=== PATIENT | male | born 1955 | race Caucasian/White ===

== ENCOUNTER 2017-09-23 10:07 | Day surgery (SDC) | payer OTHER ==
--- NOTE | 2017-09-23 08:24 | HP ---
DATE OF SURGERY: 09/23/2017 HISTORY OF PRESENT ILLNESS: The patient is a 62 year-old enlarging symptomatic right upper arm increased size nodule or mass, slight discomfort, slight redness. No drainage. PAST MEDICAL HISTORY: Chronic obstructive pulmonary disease, hypertension. PAST SURGICAL HISTORY: Inguinal hernia in the past. Fracture of the leg. Fracture of arm. Broken nose. Left knee surgery in the past. MEDICATIONS: Cranberry, aspirin, potassium, ipratropium, Albuterol. Breo, Bumex, Mobic, Aldactone, Neurontin, Flomax, Coreg, Celexa, Atarax, Lipitor. ALLERGIES: NKDA. GI UPSET WITH CODEINE. FAMILY HISTORY: Diabetes, chronic obstructive pulmonary disease. SOCIAL HISTORY: No alcohol abuse. REVIEW OF SYSTEMS: Twelve systems reviewed. No chest pain or palpitations other systems negative or noncontributory as above and per preadmission questionnaire. PHYSICAL EXAMINATION: GENERAL: No acute distress. HEENT: Sclerae nonicteric. NECK: No JVD. CHEST: Equal excursion, nonlabored breathing. CVS: Regular rate and rhythm. ABDOMEN: Soft. No peritoneal signs. EXTREMITIES: No significant edema. NEURO: Alert, oriented, moving extremities symmetrically. No gross motor deficits noted. IMPRESSION: Enlarging symptomatic right upper arm subcutaneous mass whether lipoma, cyst or other etiology is unclear at this point. No current drainage. Otherwise no cyanosis. I feel the patient would benefit from excisional biopsy. Risks and benefits explained in detail including but not limited to and consent obtained. Will proceed with outpatient excision and biopsy.
[~2017-09-23 10:07] MED LIST: CEFAZOLIN 2 GM-D5W BAG** 2 GM/50 ML ML IV ONE; Lactated Ringers 1,000 ML IV ONE; Lactated Ringers 1,000 ML IV SCH; Sensorcaine 0.25% 10 ML ONE
[2017-09-23] MEDS ORDERED: DIPRIVAN IV ONE (10:08)
[2017-09-23] MEDS ORDERED: Decadron 4 MG INJ IV ONE (10:08)
[2017-09-23] MEDS ORDERED: TORAdol 30 mg Injection IJ ONE (10:08)
[2017-09-23] MEDS ORDERED: Zofran 4 MG/2 ML VIAL IV ONE (10:08)
[2017-09-23] MEDS ORDERED: SUBLIMAZE 100 MCG/2 ML IV ONE (10:08)
[2017-09-23] MEDS ORDERED: XYLOCAINE 1% HCL 20 ML MDV ONE (10:17)
[2017-09-23] MEDS ORDERED: CEFAZOLIN 2 GM-D5W BAG** 2 GM/50 ML ML IV SCH (11:00)
[2017-09-23] MEDS ORDERED: SUBLIMAZE 100 MCG/2 ML ONE (12:40)
[2017-09-23 13:13] VITALS: O2SAT 93
[2017-09-23 13:23] VITALS: BP 139/61; PULSE 61
--- NOTE | 2017-09-23 14:16 | OP ---
SURGERY DATE/TIME: 09/23/2017 1130 PREOPERATIVE DIAGNOSIS: Enlarging symptomatic right upper arm subcutaneous mass or lipoma. POSTOPERATIVE DIAGNOSIS: Enlarging symptomatic right upper arm subcutaneous mass or lipoma. PROCEDURE: Excisional biopsy of right upper arm lipomatous density (10.5 cm). SURGEON: Dr. Jhonatan Cabezas. ANESTHESIA: General. ESTIMATED BLOOD LOSS: Minimal. INDICATIONS: As noted above. Risks and benefits explained in detail and not limited to and consent obtained. DESCRIPTION OF PROCEDURE AND FINDINGS: The patient is taken to the operating room. General anesthesia introduced. The arm was prepped and draped in usual sterile fashion. After official time out and no disagreement with planned procedure, a longitudinal incision made avoiding his tattoo at the upper edge. Dissection carried down and a small sliver of skin taken. Dissection carried down circumferentially around this lobulated lipomatous density dissecting off the underlying fascia, this took some time as it was just smooth oval but it was slowly and carefully freed from normal appearing subcutaneous fat around this area and carefully freed. Once the final attachments were free it was passed off. It measured about 7.5 cm in size and passed off for pathology. Again it appeared to be a lipoma with final path pending. Hemostasis controlled with some brief bursts of pinpoint cautery. Good hemostasis noted. There was one small, little refrigerator mover that was oozing at the base of the wound this was controlled with 3-0 Vicryl suture ligature. Good hemostasis noted. The wound was then closed in layers with the deep and superficial subcu closed with interrupted 3-0 Vicryl tacking it down to the fascia underneath. The skin closed with 4-0 Vicryl. Steri-Strips and sterile dressing applied. 0.25% Marcaine local had been injected along the skin incision at the beginning of the procedure. The patient tolerated the procedure well. There were no immediate complications. Findings discussed with the family out in the waiting area.
[2017-09-24] MEDS ORDERED: DIPRIVAN 200 MG/20 ML IV ONE (09:00)
== END 2017-09-23 13:42 | disposition home or self-care (01) ==
LOC: SDC 10:07
PROVIDERS: ATTEND Surgery
PROC: 0JBD0ZZ Excision of Right Upper Arm Subcutaneous Tissue and Fascia, Open Approach (ICD-10-PCS; principal; 2017-09-23)
DX: R22.31 Localized swelling, mass and lump, right upper limb (principal); R20.8 Other disturbances of skin sensation; J44.9 Chronic obstructive pulmonary disease, unspecified; I10 Essential (primary) hypertension; Z79.899 Other long term (current) drug therapy
CPT/HCPCS: 00400; J0690; J1100; J1885; J2405; J2704; J3010

== ENCOUNTER 2018-10-20 11:39 | Emergency (ER) | payer OTHER ==
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
--- NOTE | 2018-10-20 13:06 | XRAY ---
Indication: Face/forehead trauma following fall. Multiple contiguous axial images obtained through the head without contrast. Comparison: None Age-appropriate global atrophy and minimal periventricular degenerative micro-ischemia. No acute intracranial hemorrhage, abnormal extra-axial fluid collection, or mass effect. Fourth ventricle is midline without hydrocephalus. Bautista-white matter differentiation preserved. Bony calvarium intact. Mild fluid leveling in both sphenoid sinuses. Remaining visualized paranasal sinuses and mastoid air cells are clear. Impression: Nonacute senile brain. Incidental paranasal sinus disease. CT DI 60.26
--- NOTE | 2018-10-20 13:10 | XRAY ---
Indication: Face/forehead trauma following fall. Multiple contiguous axial images obtained through the facial bones. Sagittal and coronal reformatted images obtained. Comparison: None Patient is edentulous. Minimally depressed left nasal bone fracture with overlying mild soft tissue swelling and tiny subcutaneous emphysema. No other acute fracture, suspicious bony lesions, or radiopaque foreign body. Orbits including roof, mills, and floors intact. Fluid leveling in both sphenoid sinuses. Minimal mucosal thickening inferior right maxillary sinus. Remaining paranasal sinuses and nasal passages are clear. Minimal nasal septal deviation to the left. Visualized cervical spine intact with moderate multilevel degenerative changes greatest at the C4-C6 levels. Visualized noncontrasted soft tissues unremarkable. CT head reported separately. Impression: 1. Minimally depressed left nasal bone fracture. 2. Incidental minimal nasal septal deviation and paranasal sinus disease. CT DI 59.47
[2018-10-20 13:13] VITALS: BP 136/80; PULSE 81
[2018-10-20 13:27] VITALS: O2SAT 95
== END 2018-10-20 13:35 | disposition home or self-care (01) ==
LOC: ED 11:39
DX: S01.81XA Laceration without foreign body of other part of head, initial encounter (principal); S02.2XXA Fracture of nasal bones, initial encounter for closed fracture; W20.8XXA Other cause of strike by thrown, projected or falling object, initial encounter; Z79.899 Other long term (current) drug therapy; I10 Essential (primary) hypertension; F17.200 Nicotine dependence, unspecified, uncomplicated
CPT/HCPCS: 12013; 70450; 70486; 99283

== ENCOUNTER 2021-01-20 13:05 | Observation (INO) | payer MEDICARE ==
--- NOTE | 2021-01-20 13:07 | ERPHSYRPT ---
- History of Present Illness Time Seen by Provider: 01/20/21 13:07 Historian: patient, family Exam Limitations: clinical condition Physician History: This is a 65-year-old white male who presents with diffuse abdominal cramping that began approximately 2 days ago. The pain has become constant and has associated vomiting that began yesterday and worsened today. Patient has not had any diarrhea. He has not had a fever. Patient has no prior abdominal surgeries. Patient has a history of hypertension, COPD, and hypercholesterolemia. Timing/Duration: day(s) (2), constant, worse Activities at Onset: none Quality: aching, cramping Abdominal Pain Onset Location: generalized abdomen Pain Radiation: no radiation Severity of Pain-Max: moderate Severity of Pain-Current: moderate Modifying Factors: Improves With: vomiting Associated Symptoms: loss of appetite, nausea, vomiting Previous symptoms: no prior history Allergies/Adverse Reactions: codeine Adverse Reaction (Severe, Verified 01/20/21 13:18) spouse and pt states "he gets nasty and mean" Home Medications: Aspirin 81 gm Chew [Baby Aspirin 81 mg Chew] 81 mg PO DAILY 02/06/15 [History] Citalopram Hydrobromide [Celexa] 40 mg PO DAILY 02/06/15 [History] Cranberry Fruit [Cranberry] 4,200 mg PO DAILY 02/06/15 [History] Atorvastatin Calcium [Lipitor] 40 mg PO DAILY 09/17/17 [History] Bumetanide [Bumex] 0.5 mg PO DAILY 09/17/17 [History] Clonidine HCl 0.1 mg [Catapres 0.1 MG] 0.1 mg PO BID 09/17/17 [History] Gabapentin [Neurontin] 300 mg PO BID 09/17/17 [History] Hydroxyzine HCl 25 mg [Atarax 25 mg] 25 mg PO BID 09/17/17 [History] Tamsulosin HCl 0.4 mg [Flomax 0.4 MG] 0.4 mg PO DAILY 09/17/17 [History] Albuterol Sulfate [Proair Respiclick] 2 puff IH Q4H 01/20/21 [History] Amlodipine Besylate 10 mg PO DAILY 01/20/21 [History] Buspirone HCl 5 mg PO BID 01/20/21 [History] Cyanocobalamin (Vitamin B-12) [Vitamin B-12] 1 tab PO DAILY 01/20/21 [History] Ergocalciferol (Vitamin D2) [Vitamin D2] 1 cap PO WEEKLY 01/20/21 [History] Ezetimibe 10 mg [Zetia 10 MG] 10 mg PO DAILY 01/20/21 [History] Fluticasone/Vilanterol [Breo Ellipta 100-25 Mcg INH] 1 puff IH DAILY 01/20/21 [History] Metolazone [Zaroxolyn] 1 tab PO DAILY 01/20/21 [History] Potassium Chloride [K-Dur] 1 mg PO BID 01/20/21 [History] Tramadol HCl 50 mg PO BID PRN 01/20/21 [History] Zolpidem Tartrate 5 mg PO HS 01/20/21 [History] Hx Tetanus, Diphtheria Vaccination/Date Given: Yes Hx Influenza Vaccination/Date Given: Yes Hx Pneumococcal Vaccination/Date Given: No Travel Risk - International Travel Have you traveled outside of the country in past 3 weeks: No - Coronavirus Screening Are you exhibiting any of the following symptoms?: No Close contact with a COVID-19 positive Pt in past 14-21 Days: No - Vaccine Status Have you recieved a Covid-19 vaccination: No - Review of Systems Constitutional: No Symptoms Eyes: No Symptoms Ears, Nose, & Throat: No Symptoms Respiratory: No Symptoms Cardiac: No Symptoms Abdominal/Gastrointestinal: Abdominal Pain, Nausea, Vomiting, No Diarrhea, No Constipation Genitourinary Symptoms: No Symptoms Musculoskeletal: No Symptoms Skin: No Symptoms Neurological: No Symptoms Psychological: No Symptoms Endocrine: No Symptoms Hematologic/Lymphatic: No Symptoms Immunological/Allergic: No Symptoms All Other Systems: Reviewed and Negative - Past Medical History Pertinent Past Medical History: Yes Neurological History: No Pertinent History ENT History: No Pertinent History Cardiac History: Hypertension, Myocardial Infarction ([place]) Respiratory History: COPD Endocrine Medical History: No Pertinent History Musculoskeletal History: Arthritis GI Medical History: GERD, Hepatitis, Hernia History: No Pertinent History Psycho-Social History: Anxiety, Depression Male Reproductive Disorders: No Pertinent History Other Medical History: Previous L LL fx, L forearm fx - Past Surgical History Past Surgical History: Yes Neuro Surgical History: No Pertinent History Cardiac: No Pertinent History Respiratory: No Pertinent History Gastrointestinal: Hernia Repair Genitourinary: No Pertinent History Musculoskeletal: Orthopedic Surgery Male Surgical History: No Pertinent History Other Surgical History: broken nose. right arm fx. right leg fx. left knee meniscus repair, right inguinal hernia repair - Social History Smoking Status: Current every day smoker How long have you smoked: 43 Exposure to second hand smoke: Yes Drug Use: other Patient Lives Alone: No - Nursing Vital Signs Nursing Vital Signs: Initial Vital Signs Temperature 98.9 F 01/20/21 13:18 Pulse Rate 73 01/20/21 13:18 Respiratory Rate 20 01/20/21 13:18 Blood Pressure 146/92 01/20/21 13:18 O2 Sat by Pulse Oximetry 95 01/20/21 13:18 Pain Scale Pain Intensity 6 - Physical Exam General Appearance: moderate distress, alert, anxiety, obese Eye Exam: PERRL/EOMI Ears, Nose, Throat Exam: normal ENT inspection, moist mucous membranes Neck Exam: normal inspection, non-tender, supple, full range of motion Respiratory Exam: normal breath sounds, lungs clear, airway intact, No chest tenderness, No respiratory distress Cardiovascular Exam: regular rate/rhythm, normal heart sounds, normal peripheral pulses Gastrointestinal/Abdomen Exam: soft, normal bowel sounds, tenderness, guarding, No rebound Extremity Exam: normal inspection, normal range of motion, pelvis stable Neurologic Exam: alert, oriented x 3, cooperative, 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, normal mood/affect, nml cerebellar function, nml station & gait, sensation nml Skin Exam: normal color, warm, dry Lymphatic Exam: No adenopathy SpO2 Interpretation: normal O2 Delivery: Room Air - Course Nursing assessment & vital signs reviewed: Yes Ordered Tests: Active Orders 24 hr Category Date Time Status EKG-ER Only STAT Care 01/20/21 13:55 Active IV Insertion STAT Care 01/20/21 13:55 Active ABDOMEN AND PELVIS W/0 CONTRAS [CT] Stat Exams 01/20/21 13:56 Completed AMYLASE Stat Lab 01/20/21 13:55 Completed CBC W DIFF Stat Lab 01/20/21 13:55 Completed CMP Stat Lab 01/20/21 13:55 Completed CULTURE,URINE Stat Lab 01/20/21 14:53 Received LIPASE Stat Lab 01/20/21 13:55 Completed Lactic Acid Stat Lab 01/20/21 13:55 Completed TROPONIN Q3H Lab 01/20/21 14:00 Completed TROPONIN Q3H Lab 01/20/21 17:00 Ordered TROPONIN Q3H Lab 01/20/21 20:00 Ordered TROPONIN Q3H Lab 01/20/21 23:00 Ordered TROPONIN Q3H Lab 01/21/21 02:00 Ordered UA W/RFX UR CULTURE Stat Lab 01/20/21 14:53 Completed Medication Summary Discontinued Medications Generic Name Dose Route Start Last Admin Trade Name Freq PRN Reason Stop Dose Admin Hydromorphone HCl 1 mg 01/20/21 13:55 01/20/21 14:02 Hydromorphone 1 Mg/Ml Injection IV 01/20/21 13:56 1 mg STAT ONE Administration Hydromorphone HCl Confirm 01/20/21 14:01 Hydromorphone 1 Mg/Ml Injection Administered 01/20/21 14:02 Dose 1 mg .ROUTE .STK-MED ONE Sodium Chloride 1,000 mls @ 999 mls/hr 01/20/21 13:55 01/20/21 15:03 Sodium Chloride 0.9% 1000 Ml IV 01/20/21 14:55 Infused .Q1H1M STA Infusion Sodium Chloride Confirm 01/20/21 14:01 Sodium Chloride 0.9% 1000 Ml Administered 01/20/21 14:02 Dose 1,000 mls @ ud .ROUTE .STK-MED ONE Ondansetron HCl 4 mg 01/20/21 13:55 01/20/21 14:02 Zofran 4 Mg/2 Ml Vial IV 01/20/21 13:56 4 mg STAT ONE Administration Ondansetron HCl Confirm 01/20/21 14:01 Zofran 4 Mg/2 Ml Vial Administered 01/20/21 14:02 Dose 4 mg .ROUTE .STK-MED ONE Pantoprazole Sodium 40 mg 01/20/21 13:55 01/20/21 14:02 Protonix 40 Mg Iv IV 01/20/21 13:56 40 mg STAT ONE Administration Pantoprazole Sodium Confirm 01/20/21 14:01 Protonix 40 Mg Iv Administered 01/20/21 14:02 Dose 40 mg IV .STK-MED ONE Lab/Rad Data: Laboratory Result Diagrams 01/20/21 13:55 04/09/21 13:55 Laboratory Results 01/20/21 01/20/21 01/20/21 Range/Units 14:53 14:00 13:55 WBC (4.0-10.5) K/mm3 RBC (4.1-5.6) M/mm3 Hgb (12.5-18.0) gm/dl Hct (42-50) % MCV (78-100) fl MCH (26-32) pg MCHC (32-36) g/dl RDW (11.5-14.0) % Plt Count (150-450) K/mm3 MPV (7.5-11.0) fl Gran % (36.0-66.0) % Eos # (Auto) (0-0.5) Absolute Lymphs (auto) (1.0-4.6) Absolute Monos (auto) (0.0-1.3) Lymphocytes % (24.0-44.0) % Monocytes % (0.0-12.0) % Eosinophils % (0.00-5.0) % Basophils % (0.0-0.4) % Absolute Granulocytes (1.4-6.9) Basophils # (0-0.4) Sodium 136 L (137-145) mmol/L Potassium 3.2 L (3.5-5.1) mmol/L Chloride 98 (98-107) mmol/L Carbon Dioxide 27 (22-30) mmol/L Anion Gap 14.5 (5-15) MEQ/L BUN 23 H (9-20) mg/dL Creatinine 1.24 (0.66-1.25) mg/dL Estimated GFR > 60.0 ML/MIN Glucose 129 H (74-106) mg/dL Lactic Acid (0.4-2.0) Calcium 11.5 H (8.4-10.2) mg/dL Total Bilirubin 0.90 (0.2-1.3) mg/dL AST 32 (17-59) U/L ALT 19 (0-50) U/L Alkaline Phosphatase 63 (38-126) U/L Troponin I 0.030 (0.000-0.034) ng/mL Serum Total Protein 8.4 H (6.3-8.2) g/dL Albumin 4.6 (3.5-5.0) g/dL Amylase 67 (30-110) U/L Lipase 92 (23-300) U/L Urine Color YELLOW (YELLOW) Urine Appearance CLEAR (CLEAR) Urine pH 6.0 (5-6) Ur Specific [place] 1.017 (1.005-1.025) Urine Protein 30 (Negative) Urine Ketones NEGATIVE (NEGATIVE) Urine Blood SMALL (0-5) Moses/ul Urine Nitrite NEGATIVE (NEGATIVE) Urine Bilirubin NEGATIVE (NEGATIVE) Urine Urobilinogen 2 (0-1) mg/dL Ur Leukocyte Esterase NEGATIVE (NEGATIVE) Urine WBC (Auto) 0-2 (0-5) /HPF Urine RBC (Auto) 6-10 (0-2) /HPF U Epithel Cells (Auto) NONE (FEW) /HPF Urine Bacteria (Auto) NONE (NEGATIVE) /HPF Urine Mucus (Auto) SLIGHT (NEGATIVE) /HPF Urine Culture Reflexed YES (NO) Urine Glucose NEGATIVE (NEGATIVE) mg/dL 01/20/21 01/20/21 Range/Units 13:55 13:55 WBC 21.0 H (4.0-10.5) K/mm3 RBC 5.33 (4.1-5.6) M/mm3 Hgb 16.0 (12.5-18.0) gm/dl Hct 45.6 (42-50) % MCV 85.6 (78-100) fl MCH 30.0 (26-32) pg MCHC 35.1 (32-36) g/dl RDW 11.8 (11.5-14.0) % Plt Count 259 (150-450) K/mm3 MPV 11.5 H (7.5-11.0) fl Gran % 78.0 H (36.0-66.0) % Eos # (Auto) 0.01 (0-0.5) Absolute Lymphs (auto) 3.00 (1.0-4.6) Absolute Monos (auto) 1.60 H (0.0-1.3) Lymphocytes % 14.3 L (24.0-44.0) % Monocytes % 7.6 (0.0-12.0) % Eosinophils % 0.0 (0.00-5.0) % Basophils % 0.1 (0.0-0.4) % Absolute Granulocytes 16.34 H (1.4-6.9) Basophils # 0.02 (0-0.4) Sodium (137-145) mmol/L Potassium (3.5-5.1) mmol/L Chloride (98-107) mmol/L Carbon Dioxide (22-30) mmol/L Anion Gap (5-15) MEQ/L BUN (9-20) mg/dL Creatinine (0.66-1.25) mg/dL Estimated GFR ML/MIN Glucose (74-106) mg/dL Lactic Acid 2.9 H (0.4-2.0) Calcium (8.4-10.2) mg/dL Total Bilirubin (0.2-1.3) mg/dL AST (17-59) U/L ALT (0-50) U/L Alkaline Phosphatase (38-126) U/L Troponin I (0.000-0.034) ng/mL Serum Total Protein (6.3-8.2) g/dL Albumin (3.5-5.0) g/dL Amylase (30-110) U/L Lipase (23-300) U/L Urine Color (YELLOW) Urine Appearance (CLEAR) Urine pH (5-6) Ur Specific [place] (1.005-1.025) Urine Protein (Negative) Urine Ketones (NEGATIVE) Urine Blood (0-5) Moses/ul Urine Nitrite (NEGATIVE) Urine Bilirubin (NEGATIVE) Urine Urobilinogen (0-1) mg/dL Ur Leukocyte Esterase (NEGATIVE) Urine WBC (Auto) (0-5) /HPF Urine RBC (Auto) (0-2) /HPF U Epithel Cells (Auto) (FEW) /HPF Urine Bacteria (Auto) (NEGATIVE) /HPF Urine Mucus (Auto) (NEGATIVE) /HPF Urine Culture Reflexed (NO) Urine Glucose (NEGATIVE) mg/dL - Progress Progress: improved, pain not gone completely, re-examined Progress Note: 01/20/21 16:06 CAT scan of the abdomen and pelvis without contrast shows bilateral perinephric stranding which is nonspecific. No other acute intra-abdominal findings present. Medical decision making: I spoke with patient's primary care physician, Dr. Frost. I reviewed the patient physical findings, laboratory results and x-ray results with him. Patient has a leukocytosis and had significant abdominal pain upon admission. His abdominal pain has improved. He does have an elevated lactic acid level. Although his leukocytosis may be secondary to multiple episodes of vomiting, we will start him on Levaquin intravenously. We will provide him IV hydration as well as antiemetics and pain medicine intravenously. We will place him in observation. Discussed with : Buffy Counseled pt/family regarding: lab results, diagnosis, rad results - Departure Departure Disposition: Observation Clinical Impression: Abdominal pain, Leukocytosis, Elevated lactic acid level Condition: Stable Critical Care Time: No Referrals: JOY FROST MD [Primary Care Provider] -
[2021-01-20] MEDS ORDERED: Hydromorphone 1 mg/ml Injection IV ONE ×2 (13:55→16:05)
[2021-01-20] MEDS ORDERED: Sodium Chloride 0.9% 1000 ML 1,000 ML IV STA (13:55)
[2021-01-20] MEDS ORDERED: PROTONIX 40 MG IV IV ONE ×2 (13:55→14:01)
[2021-01-20] MEDS ORDERED: Zofran 4 MG/2 ML VIAL IV ONE (13:55)
[2021-01-20] MEDS ORDERED: Sodium Chloride 0.9% 1000 ML 1,000 ML ONE (14:01)
[2021-01-20] MEDS ORDERED: Hydromorphone 1 mg/ml Injection ONE ×2 (14:01→16:07)
[2021-01-20] MEDS ORDERED: Zofran 4 MG/2 ML VIAL ONE (14:01)
[2021-01-20 14:20] LABS: Absolute Neutrophil Ct (ANC) 16.34 (1.4-6.9); BASOPHIL % 0.1 % (0.0-0.4); Basophil (Absolute #) 0.02 (0-0.4); Eosinophil (Absolute #) 0.01 (0-0.5); Hematocrit 45.6 % (42-50); Lymphocytes % 14.3 % (24.0-44.0); Mean Cell Volume 85.6 fl (78-100); Mean Corpuscular Hgb Concent. 35.1 g/dl (32-36); Mean Platelet Volume 11.5 fl (7.5-11.0); Monocytes % 7.6 % (0.0-12.0); Platelet Count 259 K/mm3 (150-450); Red Blood Count 5.33 M/mm3 (4.1-5.6); Red Cell Distribution Width 11.8 % (11.5-14.0)
[2021-01-20 14:22] LABS: ALBUMIN 4.6 g/dL (3.5-5.0); ALKALINE PHOSPHATASE 63 U/L (38-126); AMYLASE 67 U/L (30-110); ANION GAP 14.5 MEQ/L (5-15); BLOOD UREA NITROGEN 23 mg/dL (9-20); CHLORIDE 98 mmol/L (98-107); Calcium 11.5 mg/dL (8.4-10.2); Carbon Dioxide 27 mmol/L (22-30); Creatinine 1 1.24 mg/dL (0.66-1.25); EST GLOMERULAR FILTRATION RATE > 60.0 ML/MIN; Glucose 129 mg/dL (74-106); LIPASE 92 U/L (23-300); Potassium 3.2 mmol/L (3.5-5.1); SGOT/AST 32 U/L (17-59); SGPT/ALT 19 U/L (0-50); SODIUM 136 mmol/L (137-145); Total Protein 8.4 g/dL (6.3-8.2)
--- NOTE | 2021-01-20 15:08 | XRAY ---
Indication: Abdomen cramping, pain, nausea, vomiting, and fever. Multiple contiguous axial images obtained through the abdomen and pelvis without contrast. Comparison: None Lung bases demonstrates mild bibasilar subsegmental atelectasis/scarring and a few tiny calcified granulomas. No infiltrate or effusion. Heart is not enlarged. Small right infrahilar and distal paraesophageal calcified nodes. Small hiatal hernia. Noncontrasted stomach and bowel loops appear nonobstructed. Normal appendix. Mild diffuse scattered colonic diverticulosis without bety diverticulitis. No free fluid/air. Both kidneys demonstrates nonspecific perinephric stranding. Gallbladder contracted without gallstones. A few splenic calcified granulomas. Remaining liver, gallbladder, pancreas, spleen, adrenal glands, kidneys, ureters, and bladder are unremarkable for noncontrast exam. Scattered aortoiliac calcifications including right renal artery calcifications. No AAA. Osseous structures demonstrates moderate/advanced multilevel lumbar degenerative spondylosis and L2-S1 fusion surgery with intact posterior spinal hardware and L2-L3 intervertebral spacer. Small bilateral fatty inguinal hernias. Impression: 1. Small hiatal hernia, scattered colonic diverticulosis, scattered arteriosclerotic disease, small bilateral fatty inguinal hernias, chronic bony findings, and old granulomatous disease. 2. Remaining CT abdomen/pelvis without contrast exam is negative.
[2021-01-20 15:38] LABS: Appearance CLEAR (CLEAR); Bilirubin NEGATIVE (NEGATIVE); Blood SMALL Ery/ul (0-5); Glucose NEGATIVE (NEGATIVE); Ketones NEGATIVE (NEGATIVE); Leukocyte Esterase NEGATIVE (NEGATIVE); Mucus SLIGHT /HPF (NEGATIVE); Nitrite NEGATIVE (NEGATIVE); Protein,Urine Dip 30 (Negative); Specific Gravity 1.017 (1.005-1.025); Urobilinogen 2 mg/dL (0-1); WBC 0-2 /HPF (0-5)
[2021-01-20] MEDS ORDERED: NICODERM CQ 14 MG TOP SCH (17:15)
[2021-01-20 17:51] LABS: INFLUENZA A NEGATIVE (NEGATIVE); INFLUENZA B NEGATIVE (NEGATIVE); RESPIRATORY SYNCTIAL VIRUS NEGATIVE (Negative)
[2021-01-20] MEDS ORDERED: TYLENOL 325 MG PO PRN (18:16)
[2021-01-20] MEDS ORDERED: PROTONIX 40 MG IV IV SCH (18:16)
[2021-01-20] MEDS ORDERED: ULTRAM 50 MG PO PRN (18:50)
[2021-01-20] MEDS: NORVASC 5 MG PO SCH (18:59)
[2021-01-20] MEDS: Sodium Chloride 0.9% 1000 ML 1,000 ML IV SCH (19:59)
[2021-01-20] MEDS ORDERED: PATIENT OWN MEDICATION IH PRN (20:36)
[2021-01-20] MEDS ORDERED: Ambien 5 MG Tablet PO SCH (22:00)
[2021-01-20] MEDS: BUSPAR 5 MG PO SCH (22:02)
[2021-01-20] MEDS: ATARAX 25 MG PO SCH (22:02)
[2021-01-20] MEDS: NEURONTIN 300 MG PO SCH (22:03)
[2021-01-20] MEDS: COREG 12.5 MG PO SCH (22:03)
[2021-01-20] MEDS: Catapres 0.1 MG PO SCH (22:03)
[2021-01-20] MEDS: Zofran 4 MG/2 ML VIAL IV PRN (22:11)
[2021-01-20] MEDS: Hydromorphone 1 mg/ml Injection IV PRN (22:12)
[2021-01-21 01:59] LABS: Absolute Neutrophil Ct (ANC) 8.72 (1.4-6.9); BASOPHIL % 0.2 % (0.0-0.4); Basophil (Absolute #) 0.03 (0-0.4); Eosinophil % 0.3 % (0.00-5.0); Eosinophil (Absolute #) 0.04 (0-0.5); Hematocrit 39.3 % (42-50); Hemoglobin 13.9 gm/dl (12.5-18.0); Lymphocyte (Absolute #) 3.99 (1.0-4.6); Lymphocytes % 28.2 % (24.0-44.0); Mean Cell Volume 87.5 fl (78-100); Mean Corpuscular Hgb Concent. 35.4 g/dl (32-36); Mean Platelet Volume 10.5 fl (7.5-11.0); Monocyte (Absolute #) 1.39 (0.0-1.3); Monocytes % 9.8 % (0.0-12.0); Neutrophil % 61.5 % (36.0-66.0); Platelet Count 208 K/mm3 (150-450); Red Blood Count 4.49 M/mm3 (4.1-5.6); Red Cell Distribution Width 11.7 % (11.5-14.0); White Blood Count 14.2 K/mm3 (4.0-10.5)
[2021-01-21 02:10] LABS: ALBUMIN 3.7 g/dL (3.5-5.0); ALKALINE PHOSPHATASE 47 U/L (38-126); ANION GAP 8.8 MEQ/L (5-15); BLOOD UREA NITROGEN 18 mg/dL (9-20); CHLORIDE 100 mmol/L (98-107); Carbon Dioxide 33 mmol/L (22-30); Creatinine 1 1.21 mg/dL (0.66-1.25); EST GLOMERULAR FILTRATION RATE > 60.0 ML/MIN; Glucose 106 mg/dL (74-106); SGOT/AST 23 U/L (17-59); SGPT/ALT 16 U/L (0-50); SODIUM 139 mmol/L (137-145); Total Protein 6.8 g/dL (6.3-8.2)
[2021-01-21 02:15] LABS: Potassium 2.7 mmol/L (3.5-5.1)
[2021-01-21] MEDS ORDERED: POTASSIUM CHLORIDE 20 mEq IN WATER 100ML 100 ML IV ONE (03:23)
[2021-01-21] MEDS ORDERED: POTASSIUM CHLORIDE 20 mEq IN WATER 100ML 20 MEQ/100 ML BAG IV SCH (04:00)
[2021-01-21] MEDS: Hydromorphone 1 mg/ml Injection IV PRN (05:59)
[2021-01-21] MEDS: Zofran 4 MG/2 ML VIAL IV PRN (06:10)
[2021-01-21] MEDS ORDERED: Sodium Chloride 0.9% 1000 ML 1,000 ML ONE (06:55)
[2021-01-21] MEDS: Sodium Chloride 0.9% 1000 ML 1,000 ML IV SCH (06:56)
[2021-01-21] MEDS ORDERED: MEDICATION INTERVENTION PO SCH (08:15)
[2021-01-21] MEDS ORDERED: MEDICATION INTERVENTION MC SCH (08:15)
[2021-01-21] MEDS: NORVASC 5 MG PO SCH (09:47)
[2021-01-21] MEDS: BUSPAR 5 MG PO SCH (09:48)
[2021-01-21] MEDS: Catapres 0.1 MG PO SCH (09:48)
[2021-01-21] MEDS: COREG 12.5 MG PO SCH (09:48)
[2021-01-21] MEDS: NEURONTIN 300 MG PO SCH (09:48)
[2021-01-21] MEDS: ATARAX 25 MG PO SCH (09:49)
[2021-01-21] MEDS ORDERED: ECOTRIN 81 MG PO SCH (10:00)
[2021-01-21] MEDS ORDERED: Flomax 0.4 MG PO SCH (10:00)
[2021-01-21] MEDS ORDERED: Zetia 10 MG PO SCH (10:00)
[2021-01-21] MEDS ORDERED: NON-FORMULARY ITEM (Fluticasone/Vilanterol [Breo Ellipta 100-25 Mcg Inh] 1 PUFF) IH SCH (10:00)
[2021-01-21] MEDS ORDERED: Vitamin B-12 500 MCG PO SCH (10:00)
[2021-01-21] MEDS ORDERED: CYANOCOBALAMIN PO SCH (10:00)
[2021-01-21] MEDS ORDERED: Zaroxolyn 2.5 MG PO SCH (10:00)
[2021-01-21] MEDS ORDERED: BUMEX 1 MG PO SCH (10:00)
[2021-01-21] MEDS ORDERED: CRANBERRY FRUIT 4200 MG PO SCH (10:00)
[2021-01-21] MEDS ORDERED: BUMETANIDE 0.5 MG PO SCH (10:00)
[2021-01-21] MEDS ORDERED: ceLEXa 20 MG PO SCH (10:00)
[2021-01-21] MEDS ORDERED: Levofloxacin 500MG/100ML D5W 500 MG/100 ML BAG IV SCH ×2 (10:00→22:00)
[2021-01-21] MEDS ORDERED: NON-FORMULARY ITEM (Citalopram Hydrobromide [Celexa] 40 MG) PO SCH (10:00)
[2021-01-21] MEDS ORDERED: ZOCOR 20MG PO SCH (10:00)
[2021-01-21] MEDS ORDERED: NON-FORMULARY ITEM (Atorvastatin Calcium [Lipitor] 40 MG) PO SCH (10:00)
--- NOTE | 2021-01-21 10:14 | PCM.HP ---
History of Present Illness - Chief Complaint Chief Complaint: Abdominal pain for 2 day History of Present Illness: is a 65 year old male.who presents with diffuse abdominal cramping that began approximately 2 days ago. The pain has become constant and has associated vomiting that began yesterday and worsened today. Patient has not had any diarrhea. He has not had a fever. Patient has no prior abdominal surgeries. Patient has a history of hypertension, COPD, and hypercholeste rolemia. Timing/Duration: day(s) (2), constant, worse Activities at Onset: none Quality: aching, cramping Abdominal Pain Onset Location: generalized abdomen Pain Radiation: no radiation Severity of Pain-Max: moderate Severity of Pain-Current: moderate Modifying Factors: Improves With: vomiting Associated Symptoms: loss of appetite, nausea, vomiting Previous symptoms: no prior history patient does not have a sick contacts at home. Patient also denies any fever or chills or generalized body ache. Patient also does not have close HUFF[place] Virus contact - Review of Systems Constitutional: Malaise, Weakness, No Fever, No Chills Eyes: No Symptoms Ears, Nose, & Throat: No Symptoms Respiratory: No Cough, No Short Of Breath Cardiac: No Chest Pain, No Edema, No Syncope Abdominal/Gastrointestinal: Abdominal Pain, Nausea, Vomiting, Diarrhea Genitourinary Symptoms: No Dysuria Musculoskeletal: No Back Pain, No Neck Pain Skin: No Rash Neurological: No Dizziness, No Focal Weakness, No Sensory Changes Psychological: No Symptoms Endocrine: No Symptoms Hematologic/Lymphatic: No Symptoms Immunological/Allergic: No Symptoms Medications & Allergies Home Medications: Home Medication List Carvedilol 12.5 mg [Coreg 12.5 mg] 25 mg PO BID #60 08/11/12 [Rx Confirmed 01/20/21] Aspirin 81 gm Chew [Baby Aspirin 81 mg Chew] 81 mg PO DAILY 02/06/15 [History Confirmed 01/20/21] Citalopram Hydrobromide [Celexa] 40 mg PO DAILY 02/06/15 [History Confirmed 01/20/21] Cranberry Fruit [Cranberry] 4,200 mg PO DAILY 02/06/15 [History Confirmed 07/04] Atorvastatin Calcium [Lipitor] 40 mg PO DAILY 09/17/17 [History Confirmed 01/20/21] Bumetanide [Bumex] 0.5 mg PO DAILY 09/17/17 [History Confirmed 01/20/21] Clonidine HCl 0.1 mg [Catapres 0.1 MG] 0.1 mg PO BID 09/17/17 [History Confirmed 01/20/21] Gabapentin [Neurontin] 300 mg PO BID 09/17/17 [History Confirmed 01/20/21] Hydroxyzine HCl 25 mg [Atarax 25 mg] 25 mg PO BID 09/17/17 [History Confirmed 01/20/21] Tamsulosin HCl 0.4 mg [Flomax 0.4 MG] 0.4 mg PO DAILY 09/17/17 [History Confirmed 01/20/21] Albuterol Sulfate [Proair Respiclick] 2 puff IH Q4H 01/20/21 [History Confirmed 01/20/21] Amlodipine Besylate 10 mg PO DAILY 01/20/21 [History Confirmed 01/20/21] Buspirone HCl 5 mg PO BID 01/20/21 [History Confirmed 01/20/21] Cyanocobalamin (Vitamin B-12) [Vitamin B-12] 1 tab PO DAILY 01/20/21 [History Confirmed 01/20/21] Ergocalciferol (Vitamin D2) [Vitamin D2] 1 cap PO WEEKLY 01/20/21 [History Confirmed 01/20/21] Ezetimibe 10 mg [Zetia 10 MG] 10 mg PO DAILY 01/20/21 [History Confirmed 01/20/21] Fluticasone/Vilanterol [Breo Ellipta 100-25 Mcg INH] 1 puff IH DAILY 01/20/21 [History Confirmed 01/20/21] Metolazone [Zaroxolyn] 1 tab PO DAILY 01/20/21 [History Confirmed 01/20/21] Tramadol HCl 50 mg PO BID PRN 01/20/21 [History Confirmed 01/20/21] Zolpidem Tartrate 5 mg PO HS 01/20/21 [History Confirmed 01/20/21] Allergies/Adverse Reactions: Allergies Allergy/AdvReac Type Severity Reaction Status Date / Time codeine AdvReac Severe Verified 01/20/21 13:18 potassium chloride AdvReac Intermediate Headache Verified 01/21/21 06:37 - Past Medical History Past Medical History: Yes Neurological History: No Pertinent History ENT History: No Pertinent History Cardiac History: Hypertension, Myocardial Infarction ([place]) Respiratory History: COPD Endocrine Medical History: No Pertinent History Musculoskelatal History: Arthritis GI Medical History: GERD, Hepatitis, Hernia History: No Pertinent History Pyscho-Social History: Anxiety, Depression Male Reproductive Disorders: No Pertinent History Comment: Previous R LL fx, R forearm fx - Past Surgical History Past Surgical History: Yes Neuro Surgical History: No Pertinent History Cardiac History: No Pertinent History Respiratory Surgery: No Pertinent History GI Surgical History: Hernia Repair Genitourinary Surgical Hx: No Pertinent History Musculskeletal Surgical Hx: Orthopedic Surgery Male Surgical History: No Pertinent History Other Surgical History: broken nose. right arm fx. right leg fx. left knee meniscus repair, right inguinal hernia repair. back surgery - Social History Smoking Status: Current every day smoker How long have you smoked: 43 Exposure to second hand smoke: Yes Alcohol: None Drug Use: other - Physical Exam Vital Signs: Vital Signs - 24 hr Temp Pulse Resp BP Pulse Ox 01/21/21 07:17 98.4 F 50 L 16 90/57 91 L 01/21/21 07:09 82 18 94 L 01/21/21 04:00 97.8 F 63 20 107/68 92 L 01/20/21 23:37 98.2 F 62 20 122/70 93 L 01/20/21 20:40 59 L 18 95 01/20/21 20:11 97.7 F 57 L 18 154/83 94 L 01/20/21 18:16 96 01/20/21 17:00 64 18 142/82 96 01/20/21 15:55 64 20 144/85 92 L 01/20/21 15:10 68 16 139/75 92 L 01/20/21 14:50 64 18 146/81 95 01/20/21 14:00 80 20 112/87 95 01/20/21 13:18 98.9 F 73 20 146/92 95 Oxygen-Last 24 hours Oxygen Flowrate (L/min)-RT 2 General Appearance: no apparent distress, alert Neurologic Exam: alert, oriented x 3, cooperative, normal mood/affect, nml ce rebellar function, nml station & gait, sensation nml, No motor deficits Eye Exam: PERRL/EOMI, eyes nml inspection Ears, Nose, Throat Exam: normal ENT inspection, TMs normal, pharynx normal, moist mucous membranes Neck Exam: normal inspection, non-tender, supple, full range of motion Respiratory Exam: normal breath sounds, lungs clear, No respiratory distress Cardiovascular Exam: regular rate/rhythm, normal heart sounds, normal peripheral pulses Gastrointestinal/Abdomen Exam: soft, tenderness, No mass Back Exam: normal inspection, normal range of motion, No CVA tenderness, No vertebral tenderness Extremity Exam: normal inspection, normal range of motion, pelvis stable Skin Exam: normal color, warm, dry, No rash Lymphatic Exam: No adenopathy Results - Labs Lab/Micro Results: Lab Results-Last 24 Hours 01/20/21 01/20/21 01/20/21 Range/Units 13:55 13:55 13:55 WBC 21.0 H (4.0-10.5) K/mm3 RBC 5.33 (4.1-5.6) M/mm3 Hgb 16.0 (12.5-18.0) gm/dl Hct 45.6 (42-50) % MCV 85.6 (78-100) fl MCH 30.0 (26-32) pg MCHC 35.1 (32-36) g/dl RDW 11.8 (11.5-14.0) % Plt Count 259 (150-450) K/mm3 MPV 11.5 H (7.5-11.0) fl Gran % 78.0 H (36.0-66.0) % Eos # (Auto) 0.01 (0-0.5) Absolute Lymphs (auto) 3.00 (1.0-4.6) Absolute Monos (auto) 1.60 H (0.0-1.3) Lymphocytes % 14.3 L (24.0-44.0) % Monocytes % 7.6 (0.0-12.0) % Eosinophils % 0.0 (0.00-5.0) % Basophils % 0.1 (0.0-0.4) % Absolute Granulocytes 16.34 H (1.4-6.9) Basophils # 0.02 (0-0.4) Sodium 136 L (137-145) mmol/L Potassium 3.2 L (3.5-5.1) mmol/L Chloride 98 (98-107) mmol/L Carbon Dioxide 27 (22-30) mmol/L Anion Gap 14.5 (5-15) MEQ/L BUN 23 H (9-20) mg/dL Creatinine 1.24 (0.66-1.25) mg/dL Estimated GFR > 60.0 ML/MIN Glucose 129 H (74-106) mg/dL Lactic Acid 2.9 H (0.4-2.0) Calcium 11.5 H (8.4-10.2) mg/dL Total Bilirubin 0.90 (0.2-1.3) mg/dL AST 32 (17-59) U/L ALT 19 (0-50) U/L Alkaline Phosphatase 63 (38-126) U/L Troponin I (0.000-0.034) ng/mL Serum Total Protein 8.4 H (6.3-8.2) g/dL Albumin 4.6 (3.5-5.0) g/dL Amylase 67 (30-110) U/L Lipase 92 (23-300) U/L Urine Color (YELLOW) Urine Appearance (CLEAR) Urine pH (5-6) Ur Specific [place] (1.005-1.025) Urine Protein (Negative) Urine Ketones (NEGATIVE) Urine Blood (0-5) Moses/ul Urine Nitrite (NEGATIVE) Urine Bilirubin (NEGATIVE) Urine Urobilinogen (0-1) mg/dL Ur Leukocyte Esterase (NEGATIVE) Urine WBC (Auto) (0-5) /HPF Urine RBC (Auto) (0-2) /HPF U Epithel Cells (Auto) (FEW) /HPF Urine Bacteria (Auto) (NEGATIVE) /HPF Urine Mucus (Auto) (NEGATIVE) /HPF Urine Culture Reflexed (NO) Urine Glucose (NEGATIVE) mg/dL Influenza Type A Ag (NEGATIVE) Influenza Type B Ag (NEGATIVE) RSV (PCR) (Negative) SARS-CoV-2 (PCR) (NEGATIVE) 01/20/21 01/20/21 01/20/21 Range/Units 14:00 14:53 16:07 WBC (4.0-10.5) K/mm3 RBC (4.1-5.6) M/mm3 Hgb (12.5-18.0) gm/dl Hct (42-50) % MCV (78-100) fl MCH (26-32) pg MCHC (32-36) g/dl RDW (11.5-14.0) % Plt Count (150-450) K/mm3 MPV (7.5-11.0) fl Gran % (36.0-66.0) % Eos # (Auto) (0-0.5) Absolute Lymphs (auto) (1.0-4.6) Absolute Monos (auto) (0.0-1.3) Lymphocytes % (24.0-44.0) % Monocytes % (0.0-12.0) % Eosinophils % (0.00-5.0) % Basophils % (0.0-0.4) % Absolute Granulocytes (1.4-6.9) Basophils # (0-0.4) Sodium (137-145) mmol/L Potassium (3.5-5.1) mmol/L Chloride (98-107) mmol/L Carbon Dioxide (22-30) mmol/L Anion Gap (5-15) MEQ/L BUN (9-20) mg/dL Creatinine (0.66-1.25) mg/dL Estimated GFR ML/MIN Glucose (74-106) mg/dL Lactic Acid 1.1 (0.4-2.0) Calcium (8.4-10.2) mg/dL Total Bilirubin (0.2-1.3) mg/dL AST (17-59) U/L ALT (0-50) U/L Alkaline Phosphatase (38-126) U/L Troponin I 0.030 (0.000-0.034) ng/mL Serum Total Protein (6.3-8.2) g/dL Albumin (3.5-5.0) g/dL Amylase (30-110) U/L Lipase (23-300) U/L Urine Color YELLOW (YELLOW) Urine Appearance CLEAR (CLEAR) Urine pH 6.0 (5-6) Ur Specific [place] 1.017 (1.005-1.025) Urine Protein 30 (Negative) Urine Ketones NEGATIVE (NEGATIVE) Urine Blood SMALL (0-5) Moses/ul Urine Nitrite NEGATIVE (NEGATIVE) Urine Bilirubin NEGATIVE (NEGATIVE) Urine Urobilinogen 2 (0-1) mg/dL Ur Leukocyte Esterase NEGATIVE (NEGATIVE) Urine WBC (Auto) 0-2 (0-5) /HPF Urine RBC (Auto) 6-10 (0-2) /HPF U Epithel Cells (Auto) NONE (FEW) /HPF Urine Bacteria (Auto) NONE (NEGATIVE) /HPF Urine Mucus (Auto) SLIGHT (NEGATIVE) /HPF Urine Culture Reflexed YES (NO) Urine Glucose NEGATIVE (NEGATIVE) mg/dL Influenza Type A Ag (NEGATIVE) Influenza Type B Ag (NEGATIVE) RSV (PCR) (Negative) SARS-CoV-2 (PCR) (NEGATIVE) 01/20/21 01/20/21 01/20/21 Range/Units 17:11 17:12 20:00 WBC (4.0-10.5) K/mm3 RBC (4.1-5.6) M/mm3 Hgb (12.5-18.0) gm/dl Hct (42-50) % MCV (78-100) fl MCH (26-32) pg MCHC (32-36) g/dl RDW (11.5-14.0) % Plt Count (150-450) K/mm3 MPV (7.5-11.0) fl Gran % (36.0-66.0) % Eos # (Auto) (0-0.5) Absolute Lymphs (auto) (1.0-4.6) Absolute Monos (auto) (0.0-1.3) Lymphocytes % (24.0-44.0) % Monocytes % (0.0-12.0) % Eosinophils % (0.00-5.0) % Basophils % (0.0-0.4) % Absolute Granulocytes (1.4-6.9) Basophils # (0-0.4) Sodium (137-145) mmol/L Potassium (3.5-5.1) mmol/L Chloride (98-107) mmol/L Carbon Dioxide (22-30) mmol/L Anion Gap (5-15) MEQ/L BUN (9-20) mg/dL Creatinine (0.66-1.25) mg/dL Estimated GFR ML/MIN Glucose (74-106) mg/dL Lactic Acid (0.4-2.0) Calcium (8.4-10.2) mg/dL Total Bilirubin (0.2-1.3) mg/dL AST (17-59) U/L ALT (0-50) U/L Alkaline Phosphatase (38-126) U/L Troponin I 0.030 0.030 (0.000-0.034) ng/mL Serum Total Protein (6.3-8.2) g/dL Albumin (3.5-5.0) g/dL Amylase (30-110) U/L Lipase (23-300) U/L Urine Color (YELLOW) Urine Appearance (CLEAR) Urine pH (5-6) Ur Specific [place] (1.005-1.025) Urine Protein (Negative) Urine Ketones (NEGATIVE) Urine Blood (0-5) Moses/ul Urine Nitrite (NEGATIVE) Urine Bilirubin (NEGATIVE) Urine Urobilinogen (0-1) mg/dL Ur Leukocyte Esterase (NEGATIVE) Urine WBC (Auto) (0-5) /HPF Urine RBC (Auto) (0-2) /HPF U Epithel Cells (Auto) (FEW) /HPF Urine Bacteria (Auto) (NEGATIVE) /HPF Urine Mucus (Auto) (NEGATIVE) /HPF Urine Culture Reflexed (NO) Urine Glucose (NEGATIVE) mg/dL Influenza Type A Ag NEGATIVE (NEGATIVE) Influenza Type B Ag NEGATIVE (NEGATIVE) RSV (PCR) NEGATIVE (Negative) SARS-CoV-2 (PCR) NEGATIVE (NEGATIVE) 01/20/21 01/21/21 01/21/21 Range/Units 23:10 01:50 01:50 WBC 14.2 H (4.0-10.5) K/mm3 RBC 4.49 (4.1-5.6) M/mm3 Hgb 13.9 (12.5-18.0) gm/dl Hct 39.3 L (42-50) % MCV 87.5 (78-100) fl MCH 31.0 (26-32) pg MCHC 35.4 (32-36) g/dl RDW 11.7 (11.5-14.0) % Plt Count 208 (150-450) K/mm3 MPV 10.5 (7.5-11.0) fl Gran % 61.5 (36.0-66.0) % Eos # (Auto) 0.04 (0-0.5) Absolute Lymphs (auto) 3.99 (1.0-4.6) Absolute Monos (auto) 1.39 H (0.0-1.3) Lymphocytes % 28.2 (24.0-44.0) % Monocytes % 9.8 (0.0-12.0) % Eosinophils % 0.3 (0.00-5.0) % Basophils % 0.2 (0.0-0.4) % Absolute Granulocytes 8.72 H (1.4-6.9) Basophils # 0.03 (0-0.4) Sodium 139 (137-145) mmol/L Potassium 2.7 L* (3.5-5.1) mmol/L Chloride 100 (98-107) mmol/L Carbon Dioxide 33 H (22-30) mmol/L Anion Gap 8.8 (5-15) MEQ/L BUN 18 (9-20) mg/dL Creatinine 1.21 (0.66-1.25) mg/dL Estimated GFR > 60.0 ML/MIN Glucose 106 (74-106) mg/dL Lactic Acid (0.4-2.0) Calcium 10.0 (8.4-10.2) mg/dL Total Bilirubin 0.80 (0.2-1.3) mg/dL AST 23 (17-59) U/L ALT 16 (0-50) U/L Alkaline Phosphatase 47 (38-126) U/L Troponin I 0.028 (0.000-0.034) ng/mL Serum Total Protein 6.8 (6.3-8.2) g/dL Albumin 3.7 (3.5-5.0) g/dL Amylase (30-110) U/L Lipase (23-300) U/L Urine Color (YELLOW) Urine Appearance (CLEAR) Urine pH (5-6) Ur Specific [place] (1.005-1.025) Urine Protein (Negative) Urine Ketones (NEGATIVE) Urine Blood (0-5) Moses/ul Urine Nitrite (NEGATIVE) Urine Bilirubin (NEGATIVE) Urine Urobilinogen (0-1) mg/dL Ur Leukocyte Esterase (NEGATIVE) Urine WBC (Auto) (0-5) /HPF Urine RBC (Auto) (0-2) /HPF U Epithel Cells (Auto) (FEW) /HPF Urine Bacteria (Auto) (NEGATIVE) /HPF Urine Mucus (Auto) (NEGATIVE) /HPF Urine Culture Reflexed (NO) Urine Glucose (NEGATIVE) mg/dL Influenza Type A Ag (NEGATIVE) Influenza Type B Ag (NEGATIVE) RSV (PCR) (Negative) SARS-CoV-2 (PCR) (NEGATIVE) 01/21/21 Range/Units 01:50 WBC (4.0-10.5) K/mm3 RBC (4.1-5.6) M/mm3 Hgb (12.5-18.0) gm/dl Hct (42-50) % MCV (78-100) fl MCH (26-32) pg MCHC (32-36) g/dl RDW (11.5-14.0) % Plt Count (150-450) K/mm3 MPV (7.5-11.0) fl Gran % (36.0-66.0) % Eos # (Auto) (0-0.5) Absolute Lymphs (auto) (1.0-4.6) Absolute Monos (auto) (0.0-1.3) Lymphocytes % (24.0-44.0) % Monocytes % (0.0-12.0) % Eosinophils % (0.00-5.0) % Basophils % (0.0-0.4) % Absolute Granulocytes (1.4-6.9) Basophils # (0-0.4) Sodium (137-145) mmol/L Potassium (3.5-5.1) mmol/L Chloride (98-107) mmol/L Carbon Dioxide (22-30) mmol/L Anion Gap (5-15) MEQ/L BUN (9-20) mg/dL Creatinine (0.66-1.25) mg/dL Estimated GFR ML/MIN Glucose (74-106) mg/dL Lactic Acid (0.4-2.0) Calcium (8.4-10.2) mg/dL Total Bilirubin (0.2-1.3) mg/dL AST (17-59) U/L ALT (0-50) U/L Alkaline Phosphatase (38-126) U/L Troponin I 0.026 (0.000-0.034) ng/mL Serum Total Protein (6.3-8.2) g/dL Albumin (3.5-5.0) g/dL Amylase (30-110) U/L Lipase (23-300) U/L Urine Color (YELLOW) Urine Appearance (CLEAR) Urine pH (5-6) Ur Specific [place] (1.005-1.025) Urine Protein (Negative) Urine Ketones (NEGATIVE) Urine Blood (0-5) Moses/ul Urine Nitrite (NEGATIVE) Urine Bilirubin (NEGATIVE) Urine Urobilinogen (0-1) mg/dL Ur Leukocyte Esterase (NEGATIVE) Urine WBC (Auto) (0-5) /HPF Urine RBC (Auto) (0-2) /HPF U Epithel Cells (Auto) (FEW) /HPF Urine Bacteria (Auto) (NEGATIVE) /HPF Urine Mucus (Auto) (NEGATIVE) /HPF Urine Culture Reflexed (NO) Urine Glucose (NEGATIVE) mg/dL Influenza Type A Ag (NEGATIVE) Influenza Type B Ag (NEGATIVE) RSV (PCR) (Negative) SARS-CoV-2 (PCR) (NEGATIVE) - Radiology Impressions Radiology Exams & Impressions: Radiology Procedures Category Date Time Status ABDOMEN AND PELVIS W/0 CONTRAS [CT] Stat Exams 01/20/21 13:[address]/ABDOMEN AND PELVIS W/0 CONTRAS Indication: Abdomen cramping, pain, nausea, vomiting, and fever. Multiple contiguous axial images obtained through the abdomen and pelvis without contrast. Comparison: None Lung bases demonstrates mild bibasilar subsegmental atelectasis/scarring and a few tiny calcified granulomas. No infiltrate or effusion. Heart is not enlarged. Small right infrahilar and distal paraesophageal calcified nodes. Small hiatal hernia. Noncontrasted stomach and bowel loops appear nonobstructed. Normal appendix. Mild diffuse scattered colonic diverticulosis without bety diverticulitis. No free fluid/air. Both kidneys demonstrates nonspecific perinephric stranding. Gallbladder contracted without gallstones. A few splenic calcified granulomas. Remaining liver, gallbladder, pancreas, spleen, adrenal glands, kidneys, ureters, and bladder are unremarkable for noncontrast exam. Scattered aortoiliac calcifications including right renal artery calcifications. No AAA. Osseous structures demonstrates moderate/advanced multilevel lumbar degenerative spondylosis and L2-S1 fusion surgery with intact posterior spinal hardware and L2-L3 intervertebral spacer. Small bilateral fatty inguinal hernias. Impression: 1. Small hiatal hernia, scattered colonic diverticulosis, scattered arteriosclerotic disease, small bilateral fatty inguinal hernias, chronic bony findings, and old granulomatous disease. 2. Remaining CT abdomen/pelvis without contrast exam is negative. - Other Procedures and Tests Respiratory Therapy 01/20/21 20:35 Oxygen Nasal Cannula 2 lpm 01/20/21 20:38 Respiratory MDI UD 01/20/21 20:39 Respiratory Therapy Assessment DAILY 01/20/21 22:37 BiPap/CPAP ROUTINE Assessment/Plan (1) Hypokalemia Current Visit: Yes Status: Acute Assessment & Plan: Chief Complaint Diagnosis Abdominal pain for 1 day Allergies Allergy/AdvReac Type Severity Reaction Status Date / Time codeine AdvReac Severe Verified 01/20/21 13:18 potassium chloride AdvReac Intermediate Headache Verified 01/21/21 06:37 Vital Signs (Last 24 hours) Temp Pulse Resp BP Pulse Ox 01/21/21 07:17 98.4 F 50 L 16 90/57 91 L 01/21/21 07:09 82 18 94 L 01/21/21 04:00 97.8 F 63 20 107/68 92 L 01/20/21 23:37 98.2 F 62 20 122/70 93 L 01/20/21 20:40 59 L 18 95 01/20/21 20:11 97.7 F 57 L 18 154/83 94 L 01/20/21 18:16 96 01/20/21 17:00 64 18 142/82 96 01/20/21 15:55 64 20 144/85 92 L 01/20/21 15:10 68 16 139/75 92 L 01/20/21 14:50 64 18 146/81 95 01/20/21 14:00 80 20 112/87 95 01/20/21 13:18 98.9 F 73 20 146/92 95 Home Medications Medication Instructions Recorded Confirmed Last Taken Type Albuterol Sulfate [Proair 2 puff IH Q4H 01/20/21 01/20/21 1 Day Ago History Respiclick] ~01/19/21 Amlodipine Besylate 10 mg PO DAILY 01/20/21 01/20/21 1 Day Ago History ~01/19/21 Buspirone HCl 5 mg PO BID 01/20/21 01/20/21 1 Day Ago History ~01/19/21 Cyanocobalamin (Vitamin B-12) 1 tab PO DAILY 01/20/21 01/20/21 1 Day Ago History [Vitamin B-12] ~01/19/21 Ergocalciferol (Vitamin D2) 1 cap PO WEEKLY 01/20/21 01/20/21 1 Day Ago History [Vitamin D2] ~01/19/21 Ezetimibe 10 mg [Zetia 10 MG] 10 mg PO DAILY 01/20/21 01/20/21 1 Day Ago History ~01/19/21 Fluticasone/Vilanterol [Breo 1 puff IH DAILY 01/20/21 01/20/21 1 Day Ago History Ellipta 100-25 Mcg INH] ~01/19/21 Metolazone [Zaroxolyn] 1 tab PO DAILY 01/20/21 01/20/21 1 Day Ago History ~01/19/21 Tramadol HCl 50 mg PO BID PRN 01/20/21 01/20/21 1 Day Ago History ~01/19/21 Zolpidem Tartrate 5 mg PO HS 01/20/21 01/20/21 1 Day Ago History ~01/19/21 Current Medications Generic Name Dose Route Start Last Admin Trade Name Freq PRN Reason Stop Dose Admin Acetaminophen 650 mg 01/20/21 18:16 01/21/21 05:51 Tylenol 325 Mg PO 02/19/21 18:15 650 mg Q4H PRN PRN Administration PAIN, FEVER, HEADACHE Amlodipine Besylate 10 mg 01/20/21 18:55 01/21/21 09:47 Norvasc 5 Mg PO 02/19/21 18:54 10 mg DAILY WALTER Administration Aspirin 81 mg 01/21/21 10:00 01/21/21 09:47 Ecotrin 81 Mg PO 02/20/21 09:59 81 mg DAILY WALTER Administration Bumetanide 0.5 mg 01/21/21 10:00 01/21/21 09:49 Bumex 1 Mg PO 02/20/21 09:59 0.5 mg DAILY WALTER Administration Buspirone HCl 5 mg 01/20/21 22:00 01/21/21 09:48 Buspar 5 Mg PO 02/19/21 21:59 5 mg BID WALTER Administration Carvedilol 25 mg 01/20/21 22:00 01/21/21 09:48 Coreg 12.5 Mg PO 02/19/21 21:59 25 mg BID WALTER Administration Citalopram Hydrobromide 40 mg 01/21/21 10:00 01/21/21 09:48 Celexa 20 Mg PO 02/20/21 09:59 40 mg DAILY WALTER Administration Clonidine 0.1 mg 01/20/21 22:00 01/21/21 09:48 Catapres 0.1 Mg PO 02/19/21 21:59 0.1 mg BID WALTER Administration Cyanocobalamin 1,000 mcg 01/21/21 10:00 01/21/21 09:49 Vitamin B-12 500 Mcg PO 02/20/21 09:59 1,000 mcg DAILY WALTER Administration Ezetimibe 10 mg 01/21/21 10:00 01/21/21 09:47 Zetia 10 Mg PO 02/20/21 09:59 10 mg DAILY WALTER Administration Ergocalciferol 50,000 unit 01/25/21 10:00 Vitamin D2 PO 02/24/21 09:59 WEEKLY WALTER Gabapentin 300 mg 01/20/21 22:00 01/21/21 09:48 Neurontin 300 Mg PO 02/19/21 21:59 300 mg BID WALTER Administration Hydromorphone HCl 1 mg 01/20/21 18:16 01/21/21 05:59 Hydromorphone 1 Mg/Ml Injection IV 01/25/21 18:15 1 mg Q4H PRN PRN Administration PAIN Hydroxyzine HCl 25 mg 01/20/21 22:00 01/21/21 09:49 Atarax 25 Mg PO 02/19/21 21:59 25 mg BID WALTER Administration Sodium Chloride 1,000 mls @ 100 mls/hr 01/20/21 18:16 01/21/21 06:56 Sodium Chloride 0.9% 1000 Ml IV 02/19/21 18:15 100 mls/hr .Q10H WALTER Administration Levofloxacin/Dextrose 500 mg in 100 mls @ 100 mls/hr 01/21/21 22:00 Levofloxacin 500mg/100ml D5w IV 02/20/21 09:59 QPM WALTER Metolazone 2.5 mg 01/21/21 10:00 01/21/21 09:48 Zaroxolyn 2.5 Mg PO 02/20/21 09:59 2.5 mg DAILY WALTER Administration Miscellaneous Information 1 each 01/21/21 08:15 Medication Intervention MC 02/20/21 08:14 .RT TO CHECK ON WALTER Miscellaneous Information 1 each 01/21/21 08:15 Medication Intervention PO 02/20/21 08:14 .RN TO CHECK ON WALTER Ondansetron HCl 4 mg 01/20/21 18:16 01/21/21 06:10 Zofran 4 Mg/2 Ml Vial IV 02/19/21 18:15 4 mg Q6H PRN PRN Administration NAUSEA/VOMITING Pantoprazole Sodium 40 mg 01/20/21 18:16 01/20/21 19:59 Protonix 40 Mg Iv IV 02/19/21 18:15 40 mg Q24H [facility] Administration Ventolin Hfa Inhaler 0 each 01/20/21 20:36 IH 02/19/21 20:35 Q4HPRN PRN SHORTNESS OF BREATH Simvastatin 40 mg 01/21/21 10:00 01/21/21 09:47 Zocor 20mg PO 02/20/21 09:59 40 mg DAILY W[facility]TER Administration Tamsulosin HCl 0.4 mg 01/21/21 10:00 01/21/21 09:49 Flomax 0.4 Mg PO 02/20/21 09:59 0.4 mg DAILY [facility]TER Administration Tramadol HCl 50 mg 01/20/21 18:50 Ultram 50 Mg PO 02/19/21 18:49 BID PRN PRN PAIN Zolpidem Tartrate 5 mg 01/20/21 22:00 01/20/21 22:02 Ambien 5 Mg Tablet PO 02/19/21 21:59 5 mg HS WALTER Administration Discontinued Medications Generic Name Dose Route Start Last Admin Trade Name Freq PRN Reason Stop Dose Admin Hydromorphone HCl 1 mg 01/20/21 13:55 01/20/21 14:02 Hydromorphone 1 Mg/Ml Injection IV 01/20/21 13:56 1 mg STAT ONE Administration Hydromorphone HCl Confirm 01/20/21 14:01 Hydromorphone 1 Mg/Ml Injection Administered 01/20/21 14:02 Dose 1 mg .ROUTE .STK-MED ONE Hydromorphone HCl 1 mg 01/20/21 16:05 01/20/21 16:09 Hydromorphone 1 Mg/Ml Injection IV 01/20/21 16:06 1 mg STAT ONE Administration Hydromorphone HCl Confirm 01/20/21 16:07 Hydromorphone 1 Mg/Ml Injection Administered 01/20/21 16:08 Dose 1 mg .ROUTE .STK-MED ONE Sodium Chloride 1,000 mls @ 999 mls/hr 01/20/21 13:55 01/20/21 15:03 Sodium Chloride 0.9% 1000 Ml IV 01/20/21 14:55 Infused .Q1H1M STA Infusion Sodium Chloride Confirm 01/20/21 14:01 Sodium Chloride 0.9% 1000 Ml Administered 01/20/21 14:02 Dose 1,000 mls @ ud .ROUTE .STK-MED ONE Levofloxacin/Dextrose 500 mg in 100 mls @ 100 mls/hr 01/21/21 10:00 01/20/21 23:55 Levofloxacin 500mg/100ml D5w IV 02/20/21 09:59 100 mls/hr Q24H10 [facility] Administration Potassium Chloride 20 meq in 100 mls @ 50 mls/hr 01/21/21 04:00 01/21/21 03:33 Potassium Chloride 20 Meq In Water 100ml IV 01/21/21 07:59 50 mls/hr Q2H [facility] Administration Sodium Chloride Confirm 01/21/21 06:55 Sodium Chloride 0.9% 1000 Ml Administered 01/21/21 06:56 Dose 1,000 mls @ ud .ROUTE .STK-MED ONE Potassium Chloride Confirm 01/21/21 03:23 Potassium Chloride 20 Meq In Water 100ml Administered 01/21/21 03:24 Dose 100 mls @ ud IV .STK-MED ONE Nicotine 14 mg 01/20/21 17:15 01/20/21 17:26 Nicoderm Cq 14 Mg TOP 02/19/21 17:14 14 mg Q24H [facility] Administration Ondansetron HCl 4 mg 01/20/21 13:55 01/20/21 14:02 Zofran 4 Mg/2 Ml Vial IV 01/20/21 13:56 4 mg STAT ONE Administration Ondansetron HCl Confirm 01/20/21 14:01 Zofran 4 Mg/2 Ml Vial Administered 01/20/21 14:02 Dose 4 mg .ROUTE .STK-MED ONE Pantoprazole Sodium 40 mg 01/20/21 13:55 01/20/21 14:02 Protonix 40 Mg Iv IV 01/20/21 13:56 40 mg STAT ONE Administration Pantoprazole Sodium Confirm 01/20/21 14:01 Protonix 40 Mg Iv Administered 01/20/21 14:02 Dose 40 mg IV .STK-MED ONE Intake & Output (Last 24 hours) 01/18/21 01/19/21 01/20/21 01/21/21 11:59 11:59 11:59 11:59 Intake Total 1138 Output Total 500 Balance 638 Weight 86.8 kg Microbiology Results (Last 24 hours) 01/20/21 14:53 Urine, Void Urine Culture - Pending Laboratory Results (Last 24 hours) 01/21/21 01/21/21 01/21/21 01:50 01:50 01:50 WBC 14.2 H RBC 4.49 Hgb 13.9 Hct 39.3 L MCV 87.5 MCH 31.0 MCHC 35.4 RDW 11.7 Plt Count 208 MPV 10.5 Gran % 61.5 Eos # (Auto) 0.04 Absolute Lymphs (auto) 3.99 Absolute Monos (auto) 1.39 H Lymphocytes % 28.2 Monocytes % 9.8 Eosinophils % 0.3 Basophils % 0.2 Absolute Granulocytes 8.72 H Basophils # 0.03 Sodium 139 Potassium 2.7 L* Chloride 100 Carbon Dioxide 33 H Anion Gap 8.8 BUN 18 Creatinine 1.21 Estimated GFR > 60.0 Glucose 106 Lactic Acid Calcium 10.0 Total Bilirubin 0.80 AST 23 ALT 16 Alkaline Phosphatase 47 Troponin I 0.026 Serum Total Protein 6.8 Albumin 3.7 Amylase Lipase Urine Color Urine Appearance Urine pH Ur Specific [place] Urine Protein Urine Ketones Urine Blood Urine Nitrite Urine Bilirubin Urine Urobilinogen Ur Leukocyte Esterase Urine WBC (Auto) Urine RBC (Auto) U Epithel Cells (Auto) Urine Bacteria (Auto) Urine Mucus (Auto) Urine Culture Reflexed Urine Glucose Influenza Type A Ag Influenza Type B Ag RSV (PCR) SARS-CoV-2 (PCR) 01/20/21 01/20/21 01/20/21 23:10 20:00 17:12 WBC RBC Hgb Hct MCV MCH MCHC RDW Plt Count MPV Gran % Eos # (Auto) Absolute Lymphs (auto) Absolute Monos (auto) Lymphocytes % Monocytes % Eosinophils % Basophils % Absolute Granulocytes Basophils # Sodium Potassium Chloride Carbon Dioxide Anion Gap BUN Creatinine Estimated GFR Glucose Lactic Acid Calcium Total Bilirubin AST ALT Alkaline Phosphatase Troponin I 0.028 0.030 0.030 Serum Total Protein Albumin Amylase Lipase Urine Color Urine Appearance Urine pH Ur Specific [place] Urine Protein Urine Ketones Urine Blood Urine Nitrite Urine Bilirubin Urine Urobilinogen Ur Leukocyte Esterase Urine WBC (Auto) Urine RBC (Auto) U Epithel Cells (Auto) Urine Bacteria (Auto) Urine Mucus (Auto) Urine Culture Reflexed Urine Glucose Influenza Type A Ag Influenza Type B Ag RSV (PCR) SARS-CoV-2 (PCR) 01/20/21 01/20/21 01/20/21 17:11 16:07 14:53 WBC RBC Hgb Hct MCV MCH MCHC RDW Plt Count MPV Gran % Eos # (Auto) Absolute Lymphs (auto) Absolute Monos (auto) Lymphocytes % Monocytes % Eosinophils % Basophils % Absolute Granulocytes Basophils # Sodium Potassium Chloride Carbon Dioxide Anion Gap BUN Creatinine Estimated GFR Glucose Lactic Acid 1.1 Calcium Total Bilirubin AST ALT Alkaline Phosphatase Troponin I Serum Total Protein Albumin Amylase Lipase Urine Color YELLOW Urine Appearance CLEAR Urine pH 6.0 Ur Specific [place] 1.017 Urine Protein 30 Urine Ketones NEGATIVE Urine Blood SMALL Urine Nitrite NEGATIVE Urine Bilirubin NEGATIVE Urine Urobilinogen 2 Ur Leukocyte Esterase NEGATIVE Urine WBC (Auto) 0-2 Urine RBC (Auto) 6-10 U Epithel Cells (Auto) NONE Urine Bacteria (Auto) NONE Urine Mucus (Auto) SLIGHT Urine Culture Reflexed YES Urine Glucose NEGATIVE Influenza Type A Ag NEGATIVE Influenza Type B Ag NEGATIVE RSV (PCR) NEGATIVE SARS-CoV-2 (PCR) NEGATIVE 01/20/21 01/20/21 01/20/21 14:00 13:55 13:55 WBC RBC Hgb Hct MCV MCH MCHC RDW Plt Count MPV Gran % Eos # (Auto) Absolute Lymphs (auto) Absolute Monos (auto) Lymphocytes % Monocytes % Eosinophils % Basophils % Absolute Granulocytes Basophils # Sodium 136 L Potassium 3.2 L Chloride 98 Carbon Dioxide 27 Anion Gap 14.5 BUN 23 H Creatinine 1.24 Estimated GFR > 60.0 Glucose 129 H Lactic Acid 2.9 H Calcium 11.5 H Total Bilirubin 0.90 AST 32 ALT 19 Alkaline Phosphatase 63 Troponin I 0.030 Serum Total Protein 8.4 H Albumin 4.6 Amylase 67 Lipase 92 Urine Color Urine Appearance Urine pH Ur Specific [place] Urine Protein Urine Ketones Urine Blood Urine Nitrite Urine Bilirubin Urine Urobilinogen Ur Leukocyte Esterase Urine WBC (Auto) Urine RBC (Auto) U Epithel Cells (Auto) Urine Bacteria (Auto) Urine Mucus (Auto) Urine Culture Reflexed Urine Glucose Influenza Type A Ag Influenza Type B Ag RSV (PCR) SARS-CoV-2 (PCR) 01/20/21 13:55 WBC 21.0 H RBC 5.33 Hgb 16.0 Hct 45.6 MCV 85.6 MCH 30.0 MCHC 35.1 RDW 11.8 Plt Count 259 MPV 11.5 H Gran % 78.0 H Eos # (Auto) 0.01 Absolute Lymphs (auto) 3.00 Absolute Monos (auto) 1.60 H Lymphocytes % 14.3 L Monocytes % 7.6 Eosinophils % 0.0 Basophils % 0.1 Absolute Granulocytes 16.34 H Basophils # 0.02 Sodium Potassium Chloride Carbon Dioxide Anion Gap BUN Creatinine Estimated GFR Glucose Lactic Acid Calcium Total Bilirubin AST ALT Alkaline Phosphatase Troponin I Serum Total Protein Albumin Amylase Lipase Urine Color Urine Appearance Urine pH Ur Specific [place] Urine Protein Urine Ketones Urine Blood Urine Nitrite Urine Bilirubin Urine Urobilinogen Ur Leukocyte Esterase Urine WBC (Auto) Urine RBC (Auto) U Epithel Cells (Auto) Urine Bacteria (Auto) Urine Mucus (Auto) Urine Culture Reflexed Urine Glucose Influenza Type A Ag Influenza Type B Ag RSV (PCR) SARS-CoV-2 (PCR) Orders (Last 24 hours) Category Date Time Status Up With Assistance TOLERATED Activity 01/20/21 18:16 Active Code Status Order ROUTINE Care 01/20/21 18:16 Active EKG-ER Only STAT Care 01/20/21 13:55 Completed IV Insertion STAT Care 01/20/21 13:55 Completed Order K Level 2 hours post-inf 2 HRS POST K-INFUSED Care 01/21/21 03:11 Active Oxygen-ED Only Nasal Cannula 2 lpm Care 01/20/21 16:[address] in Observation ROUTINE Care 01/20/21 18:16 Active Telemetry q4h Care 01/21/21 03:11 Active Weight,Daily 0600 Care 01/20/21 18:16 Active Jig Box Operator/Discharge Plan ROUTINE Cons 01/20/21 20:58 Active Clear Liquid Diet 01/20/21 Dinner Completed Clear Liquid Diet 01/20/21 Dinner Completed Soft Diet Diet 01/21/21 Lunch Active ABDOMEN AND PELVIS W/0 CONTRAS [CT] Stat Exams 01/20/21 13:56 Completed AMYLASE Stat Lab 01/20/21 13:55 Completed CBC W DIFF Stat Lab 01/20/21 13:55 Completed CBC W DIFF Stat Lab 01/21/21 01:50 Completed CMP Stat Lab 01/20/21 13:55 Completed CMP Stat Lab 01/21/21 01:50 Completed CULTURE,URINE Stat Lab 01/20/21 14:53 Received LIPASE Stat Lab 01/20/21 13:55 Completed Lactic Acid Stat Lab 01/20/21 13:55 Completed Lactic Acid Stat Lab 01/20/21 16:07 Completed TROPONIN Q3H Lab 01/20/21 14:00 Completed TROPONIN Q3H Lab 01/20/21 17:12 Completed TROPONIN Q3H Lab 01/20/21 20:00 Completed TROPONIN Q3H Lab 01/20/21 23:10 Completed TROPONIN Q3H Lab 01/21/21 01:50 Completed UA W/RFX UR CULTURE Stat Lab 01/20/21 14:53 Completed Acetaminophen 325 mg [Tylenol 325 mg] Med 01/20/21 18:16 Active 650 mg PO Q4H PRN PRN Amlodipine Besylate 5 mg [Norvasc 5 mg] Med 01/20/21 18:55 Active 10 mg PO DAILY Aspirin EC 81 mg [Ecotrin 81 mg] Med 01/21/21 10:00 Active 81 mg PO DAILY Bumetanide 1 mg [Bumex 1 mg] Med 01/21/21 10:00 Active 0.5 mg PO DAILY Buspirone HCl 5 mg [Buspar 5 mg] Med 01/20/21 22:00 Active 5 mg PO BID Carvedilol 12.5 mg [Coreg 12.5 mg] Med 01/20/21 22:00 Active 25 mg PO BID Citalopram Hydrobromide 20 mg* [ceLEXa 20 MG] Med 01/21/21 10:00 Active 40 mg PO DAILY Clonidine HCl 0.1 mg [Catapres 0.1 MG] Med 01/20/21 22:00 Active 0.1 mg PO BID Cyanocobalamin 500 Mcg [Vitamin B-12 500 MCG] Med 01/21/21 10:00 Active 1,000 mcg PO DAILY Ergocalciferol (Vitamin D2) [Vitamin D2] Med 01/25/21 10:00 Active 50,000 unit PO WEEKLY Ezetimibe 10 mg [Zetia 10 MG] Med 01/21/21 10:00 Active 10 mg PO DAILY Gabapentin 300 mg [Neurontin 300 mg] Med 01/20/21 22:00 Active 300 mg PO BID Hydromorphone 1 mg/1Ml Inj [Hydromorphone 1 mg/ml Med 01/20/21 14:01 Discontinued Injection] 1 mg .ROUTE .STK-MED ONE Hydromorphone 1 mg/1Ml Inj [Hydromorphone 1 mg/ml Med 01/20/21 16:07 Discontinued Injection] 1 mg .ROUTE .STK-MED ONE Hydromorphone 1 mg/1Ml Inj [Hydromorphone 1 mg/ml Med 01/20/21 18:16 Active Injection] 1 mg IV Q4H PRN PRN Hydromorphone 1 mg/1Ml Inj [Hydromorphone 1 mg/ml Med 01/20/21 13:55 Discontinued Injection] 1 mg IV STAT ONE Hydromorphone 1 mg/1Ml Inj [Hydromorphone 1 mg/ml Med 01/20/21 16:05 Discontinued Injection] 1 mg IV STAT ONE Hydroxyzine HCl 25 mg [Atarax 25 mg] Med 01/20/21 22:00 Active 25 mg PO BID Levofloxacin [Levofloxacin 500MG/100ML D5W] Med 01/21/21 10:00 Discontinued 500 mg in 100 ml IV Q24H10 Levofloxacin [Levofloxacin 500MG/100ML D5W] Med 01/21/21 22:00 Active 500 mg in 100 ml IV QPM Medication Intervention Med 01/21/21 08:15 Active 1 each MC .RT TO CHECK ON Medication Intervention Med 01/21/21 08:15 Active 1 each PO .RN TO CHECK ON Metolazone 2.5 mg [Zaroxolyn 2.5 MG] Med 01/21/21 10:00 Active 2.5 mg PO DAILY NaCl 0.9% 1000 ml [Sodium Chloride 0.9% 1000 ML] 1,000 Med 01/20/21 14:01 Discontinued ml .ROUTE UD NaCl 0.9% 1000 ml [Sodium Chloride 0.9% 1000 ML] 1,000 Med 01/21/21 06:55 Discontinued ml .ROUTE UD NaCl 0.9% 1000 ml [Sodium Chloride 0.9% 1000 ML] 1,000 Med 01/20/21 18:16 Active ml IV 100 mls/hr NaCl 0.9% 1000 ml [Sodium Chloride 0.9% 1000 ML] 1,000 Med 01/20/21 13:55 Discontinued ml IV 999 mls/hr Nicotine 14 mg [Nicoderm Cq 14 mg] Med 01/20/21 17:15 Discontinued 14 mg TOP Q24H Ondansetron HCl 4 mg/2 ml [Zofran 4 MG/2 ML VIAL] Med 01/20/21 14:01 Discontinued 0 mg .ROUTE .STK-MED ONE Ondansetron HCl 4 mg/2 ml [Zofran 4 MG/2 ML VIAL] Med 01/20/21 18:16 Active 4 mg IV Q6H PRN PRN Ondansetron HCl 4 mg/2 ml [Zofran 4 MG/2 ML VIAL] Med 01/20/21 13:55 Dis continued 4 mg IV STAT ONE Pantoprazole 40 mg [Protonix 40 mg IV] Med 01/20/21 14:01 Discontinued 40 mg IV .STK-MED ONE Pantoprazole 40 mg [Protonix 40 mg IV] Med 01/20/21 18:16 Active 40 mg IV Q24H Pantoprazole 40 mg [Protonix 40 mg IV] Med 01/20/21 13:55 Discontinued 40 mg IV STAT ONE Patient Own Med [Patient Own Medication] Med 01/20/21 20:36 Active See Dose Instructions IH Q4HPRN PRN Potassium Chloride 20Meq/100Ml [POTASSIUM CHLORIDE 20 Med 01/21/21 04:00 Discontinued mEq IN WATER 100ML] 20 meq in 100 ml IV Q2H Potassium Chloride 20Meq/100Ml [POTASSIUM CHLORIDE 20 Med 01/21/21 03:23 Discontinued mEq IN WATER 100ML] 100 ml IV UD Simvastatin 20Mg [Zocor 20Mg] Med 01/21/21 10:00 Active 40 mg PO DAILY Tamsulosin HCl 0.4 mg [Flomax 0.4 MG] Med 01/21/21 10:00 Active 0.4 mg PO DAILY Tramadol HCl 50 mg [Ultram 50 mg] Med 01/20/21 18:50 Active 50 mg PO BID PRN PRN Zolpidem Tartrate 5 mg [Ambien 5 MG Tablet] Med 01/20/21 22:00 Active 5 mg PO HS BiPap/CPAP ROUTINE RT 01/20/21 22:37 Active Oxygen Nasal Cannula 2 lpm RT 01/20/21 20:35 Active Pulse Oximetry .spot check RT 01/20/21 20:35 Active Respiratory MDI UD RT 01/20/21 20:38 Active Respiratory Therapy Assessment DAILY RT 01/20/21 20:39 Active Smoking Cessation Education ONCE RT 01/20/21 20:58 Completed Patient Care Notes (Last 24 hours) 01/21/21 06:27 Nursing Note by Navneet Marin After about 50 ml of potassium infused, pt c/o headache. Offered pt tylenol or tramadol, he said he would take whatever. Gave Tylenol. Pt then c/o that it would take an hour to kick in. At this time, Pt holding ice pack to his head and rocking back and forth. Pt called his to come in because of pain. Gave pt dilaudid for the headache and explained that it would work faster than the tylenol. Pt wanted IV taken out. Explained that his potassium was low and he needed to try to leave it in. Pt's called back and said that he had had this reaction to potassium in the past and they had forgotten to tell us. She stated that his doctor told him not to take potassium anymore. Stopped potassium infusion and unhooked IV tubing from patient. Notified Dr Felix. No new orders at this time. Initialized on 01/21/21 06:27 - END OF NOTE 01/20/21 22:00 (created 01/21/21 01:27) Nursing Note by Goldsworthy,Navneet Asked pt what dose he takes of his potassium since it was not clear on the med list. Pt called his , who said that he no longer takes potassium. Initialized on 01/21/21 01:27 - END OF NOTE Code(s): E87.6 - HYPOKALEMIA (2) Abdominal pain Current Visit: Yes Status: Acute Qualifiers: Abdominal location: generalized Qualified Code(s): R10.84 - Generalized abdominal pain Code(s): R10.9 - UNSPECIFIED ABDOMINAL PAIN (3) Elevated lactic acid level Current Visit: Yes Status: Acute Code(s): R79.89 - OTHER SPECIFIED ABNORMAL FINDINGS OF BLOOD CHEMISTRY (4) Leukocytosis Current Visit: Yes Status: Acute Code(s): D72.829 - ELEVATED WHITE BLOOD CELL COUNT, UNSPECIFIED
[2021-01-21 12:11] VITALS: BP 115/61; PULSE 52; O2SAT 94
--- NOTE | 2021-01-21 12:35 | PCM.DS ---
Discharge Summary Date of Admission: 01/20/21 18:08 Admitting Physician: JOY FROST Primary Care Provider: JOY FROST Allergies Allergies codeine Adverse Reaction (Severe, Verified 01/20/21 13:18) spouse and pt states "he gets nasty and mean" potassium chloride Adverse Reaction (Intermediate, Verified 01/21/21 06:37) Headache Severe headache Hospital Summary - Hospital Course Hospital Course: Chief Complaint Diagnosis Abdominal pain for 2 day Allergies Allergy/AdvReac Type Severity Reaction Status Date / Time codeine AdvReac Severe Verified 01/20/21 13:18 potassium chloride AdvReac Intermediate Headache Verified 01/21/21 06:37 Vital Signs (Last 24 hours) Temp Pulse Resp BP Pulse Ox 01/21/21 12:00 98.3 F 52 L 16 115/61 94 L 01/21/21 07:17 98.4 F 50 L 16 90/57 91 L 01/21/21 07:09 82 18 94 L 01/21/21 04:00 97.8 F 63 20 107/68 92 L 01/20/21 23:37 98.2 F 62 20 122/70 93 L 01/20/21 20:40 59 L 18 95 01/20/21 20:11 97.7 F 57 L 18 154/83 94 L 01/20/21 18:16 96 01/20/21 17:00 64 18 142/82 96 01/20/21 15:55 64 20 144/85 92 L 01/20/21 15:10 68 16 139/75 92 L 01/20/21 14:50 64 18 146/81 95 01/20/21 14:00 80 20 112/87 95 01/20/21 13:18 98.9 F 73 20 146/92 95 Home Medications Medication Instructions Recorded Confirmed Last Taken Type Albuterol Sulfate [Proair 2 puff IH Q4H 01/20/21 01/20/21 1 Day Ago History Respiclick] ~01/19/21 Amlodipine Besylate 10 mg PO DAILY 01/20/21 01/20/21 1 Day Ago History ~01/19/21 Buspirone HCl 5 mg PO BID 01/20/21 01/20/21 1 Day Ago History ~01/19/21 Cyanocobalamin (Vitamin B-12) 1 tab PO DAILY 01/20/21 01/20/21 1 Day Ago History [Vitamin B-12] ~01/19/21 Ergocalciferol (Vitamin D2) 1 cap PO WEEKLY 01/20/21 01/20/21 1 Day Ago History [Vitamin D2] ~01/19/21 Ezetimibe 10 mg [Zetia 10 MG] 10 mg PO DAILY 01/20/21 01/20/21 1 Day Ago History ~01/19/21 Fluticasone/Vilanterol [Breo 1 puff IH DAILY 01/20/21 01/20/21 1 Day Ago History Ellipta 100-25 Mcg INH] ~01/19/21 Metolazone [Zaroxolyn] 1 tab PO DAILY 01/20/21 01/20/21 1 Day Ago History ~01/19/21 Tramadol HCl 50 mg PO BID PRN 01/20/21 01/20/21 1 Day Ago History ~01/19/21 Zolpidem Tartrate 5 mg PO HS 01/20/21 01/20/21 1 Day Ago History ~01/19/21 Current Medications Generic Name Dose Route Start Last Admin Trade Name Freq PRN Reason Stop Dose Admin Acetaminophen 650 mg 01/20/21 18:16 01/21/21 05:51 Tylenol 325 Mg PO 02/19/21 18:15 650 mg Q4H PRN PRN Administration PAIN, FEVER, HEADACHE Amlodipine Besylate 10 mg 01/20/21 18:55 01/21/21 09:47 Norvasc 5 Mg PO 02/19/21 18:54 10 mg DAILY WALTER Administration Aspirin 81 mg 01/21/21 10:00 01/21/21 09:47 Ecotrin 81 Mg PO 02/20/21 09:59 81 mg DAILY WALTER Administration Bumetanide 0.5 mg 01/21/21 10:00 01/21/21 09:49 Bumex 1 Mg PO 02/20/21 09:59 0.5 mg DAILY WALTER Administration Buspirone HCl 5 mg 01/20/21 22:00 01/21/21 09:48 Buspar 5 Mg PO 02/19/21 21:59 5 mg BID WALTER Administration Carvedilol 25 mg 01/20/21 22:00 01/21/21 09:48 Coreg 12.5 Mg PO 02/19/21 21:59 25 mg BID WALTER Administration Citalopram Hydrobromide 40 mg 01/21/21 10:00 01/21/21 09:48 Celexa 20 Mg PO 02/20/21 09:59 40 mg DAILY WALTER Administration Clonidine 0.1 mg 01/20/21 22:00 01/21/21 09:48 Catapres 0.1 Mg PO 02/19/21 21:59 0.1 mg BID WALTER Administration Cyanocobalamin 1,000 mcg 01/21/21 10:00 01/21/21 09:49 Vitamin B-12 500 Mcg PO 02/20/21 09:59 1,000 mcg DAILY WALTER Administration Ezetimibe 10 mg 01/21/21 10:00 01/21/21 09:47 Zetia 10 Mg PO 02/20/21 09:59 10 mg DAILY WALTER Administration Ergocalciferol 50,000 unit 01/25/21 10:00 Vitamin D2 PO 02/24/21 09:59 WEEKLY WALTER Gabapentin 300 mg 01/20/21 22:00 01/21/21 09:48 Neurontin 300 Mg PO 02/19/21 21:59 300 mg BID WALTER Administration Hydromorphone HCl 1 mg 01/20/21 18:16 01/21/21 05:59 Hydromorphone 1 Mg/Ml Injection IV 01/25/21 18:15 1 mg Q4H PRN PRN Administration PAIN Hydroxyzine HCl 25 mg 01/20/21 22:00 01/21/21 09:49 Atarax 25 Mg PO 02/19/21 21:59 25 mg BID WALTER Administration Sodium Chloride 1,000 mls @ 100 mls/hr 01/20/21 18:16 01/21/21 06:56 Sodium Chloride 0.9% 1000 Ml IV 02/19/21 18:15 100 mls/hr .Q10H WALTER Administration Levofloxacin/Dextrose 500 mg in 100 mls @ 100 mls/hr 01/21/21 22:00 Levofloxacin 500mg/100ml D5w IV 02/20/21 09:59 QPM WALTER Metolazone 2.5 mg 01/21/21 10:00 01/21/21 09:48 Zaroxolyn 2.5 Mg PO 02/20/21 09:59 2.5 mg DAILY WALTER Administration Miscellaneous Information 1 each 01/21/21 08:15 Medication Intervention MC 02/20/21 08:14 .RT TO CHECK ON WALTER Miscellaneous Information 1 each 01/21/21 08:15 Medication Intervention PO 02/20/21 08:14 .RN TO CHECK ON WALTER Ondansetron HCl 4 mg 01/20/21 18:16 01/21/21 06:10 Zofran 4 Mg/2 Ml Vial IV 02/19/21 18:15 4 mg Q6H PRN PRN Administration NAUSEA/VOMITING Pantoprazole Sodium 40 mg 01/20/21 18:16 01/20/21 19:59 Protonix 40 Mg Iv IV 02/19/21 18:15 40 mg Q24H WALTER Administration Ventolin Hfa Inhaler 0 each 01/20/21 20:36 IH 02/19/21 20:35 Q4HPRN PRN SHORTNESS OF BREATH Simvastatin 40 mg 01/21/21 10:00 01/21/21 09:47 Zocor 20mg PO 02/20/21 09:59 40 mg DAILY WALTER Administration Tamsulosin HCl 0.4 mg 01/21/21 10:00 01/21/21 09:49 Flomax 0.4 Mg PO 02/20/21 09:59 0.4 mg DAILY WALTER Administration Tramadol HCl 50 mg 01/20/21 18:50 Ultram 50 Mg PO 02/19/21 18:49 BID PRN PRN PAIN Zolpidem Tartrate 5 mg 01/20/21 22:00 01/20/21 22:02 Ambien 5 Mg Tablet PO 02/19/21 21:59 5 mg HS WALTER Administration Discontinued Medications Generic Name Dose Route Start Last Admin Trade Name Freq PRN Reason Stop Dose Admin Hydromorphone HCl 1 mg 01/20/21 13:55 01/20/21 14:02 Hydromorphone 1 Mg/Ml Injection IV 01/20/21 13:56 1 mg STAT ONE Administration Hydromorphone HCl Confirm 01/20/21 14:01 Hydromorphone 1 Mg/Ml Injection Administered 01/20/21 14:02 Dose 1 mg .ROUTE .STK-MED ONE Hydromorphone HCl 1 mg 01/20/21 16:05 01/20/21 16:09 Hydromorphone 1 Mg/Ml Injection IV 01/20/21 16:06 1 mg STAT ONE Administration Hydromorphone HCl Confirm 01/20/21 16:07 Hydromorphone 1 Mg/Ml Injection Administered 01/20/21 16:08 Dose 1 mg .ROUTE .STK-MED ONE Sodium Chloride 1,000 mls @ 999 mls/hr 01/20/21 13:55 01/20/21 15:03 Sodium Chloride 0.9% 1000 Ml IV 01/20/21 14:55 Infused .Q1H1M STA Infusion Sodium Chloride Confirm 01/20/21 14:01 Sodium Chloride 0.9% 1000 Ml Administered 01/20/21 14:02 Dose 1,000 mls @ ud .ROUTE .STK-MED ONE Levofloxacin/Dextrose 500 mg in 100 mls @ 100 mls/hr 01/21/21 10:00 01/20/21 23:55 Levofloxacin 500mg/100ml D5w IV 02/20/21 09:59 100 mls/hr Q24H10 WALTER Administration Potassium Chloride 20 meq in 100 mls @ 50 mls/hr 01/21/21 04:00 01/21/21 03:33 Potassium Chloride 20 Meq In Water 100ml IV 01/21/21 07:59 50 mls/hr Q2H WALTER Administration Sodium Chloride Confirm 01/21/21 06:55 Sodium Chloride 0.9% 1000 Ml Administered 01/21/21 06:56 Dose 1,000 mls @ ud .ROUTE .STK-MED ONE Potassium Chloride Confirm 01/21/21 03:23 Potassium Chloride 20 Meq In Water 100ml Administered 01/21/21 03:24 Dose 100 mls @ ud IV .STK-MED ONE Nicotine 14 mg 01/20/21 17:15 01/20/21 17:26 Nicoderm Cq 14 Mg TOP 02/19/21 17:14 14 mg Q24H WALTER Administration Ondansetron HCl 4 mg 01/20/21 13:55 01/20/21 14:02 Zofran 4 Mg/2 Ml Vial IV 01/20/21 13:56 4 mg STAT ONE Administration Ondansetron HCl Confirm 01/20/21 14:01 Zofran 4 Mg/2 Ml Vial Administered 01/20/21 14:02 Dose 4 mg .ROUTE .STK-MED ONE Pantoprazole Sodium 40 mg 01/20/21 13:55 01/20/21 14:02 Protonix 40 Mg Iv IV 01/20/21 13:56 40 mg STAT ONE Administration Pantoprazole Sodium Confirm 01/20/21 14:01 Protonix 40 Mg Iv Administered 01/20/21 14:02 Dose 40 mg IV .STK-MED ONE Intake & Output (Last 24 hours) 01/19/21 01/20/21 01/21/21 01/22/21 11:59 11:59 11:59 11:59 Intake Total 1378 Output Total 500 Balance 878 Weight 86.8 kg Microbiology Results (Last 24 hours) 01/20/21 14:53 Urine, Void Urine Culture - Pending Laboratory Results (Last 24 hours) 01/21/21 01/21/21 01/21/21 01:50 01:50 01:50 WBC 14.2 H RBC 4.49 Hgb 13.9 Hct 39.3 L MCV 87.5 MCH 31.0 MCHC 35.4 RDW 11.7 Plt Count 208 MPV 10.5 Gran % 61.5 Eos # (Auto) 0.04 Absolute Lymphs (auto) 3.99 Absolute Monos (auto) 1.39 H Lymphocytes % 28.2 Monocytes % 9.8 Eosinophils % 0.3 Basophils % 0.2 Absolute Granulocytes 8.72 H Basophils # 0.03 Sodium 139 Potassium 2.7 L* Chloride 100 Carbon Dioxide 33 H Anion Gap 8.8 BUN 18 Creatinine 1.21 Estimated GFR > 60.0 Glucose 106 Lactic Acid Calcium 10.0 Total Bilirubin 0.80 AST 23 ALT 16 Alkaline Phosphatase 47 Troponin I 0.026 Serum Total Protein 6.8 Albumin 3.7 Amylase Lipase Urine Color Urine Appearance Urine pH Ur Specific [place] Urine Protein Urine Ketones Urine Blood Urine Nitrite Urine Bilirubin Urine Urobilinogen Ur Leukocyte Esterase Urine WBC (Auto) Urine RBC (Auto) U Epithel Cells (Auto) Urine Bacteria (Auto) Urine Mucus (Auto) Urine Culture Reflexed Urine Glucose Influenza Type A Ag Influenza Type B Ag RSV (PCR) SARS-CoV-2 (PCR) 01/20/21 01/20/21 01/20/21 23:10 20:00 17:12 WBC RBC Hgb Hct MCV MCH MCHC RDW Plt Count MPV Gran % Eos # (Auto) Absolute Lymphs (auto) Absolute Monos (auto) Lymphocytes % Monocytes % Eosinophils % Basophils % Absolute Granulocytes Basophils # Sodium Potassium Chloride Carbon Dioxide Anion Gap BUN Creatinine Estimated GFR Glucose Lactic Acid Calcium Total Bilirubin AST ALT Alkaline Phosphatase Troponin I 0.028 0.030 0.030 Serum Total Protein Albumin Amylase Lipase Urine Color Urine Appearance Urine pH Ur Specific [place] Urine Protein Urine Ketones Urine Blood Urine Nitrite Urine Bilirubin Urine Urobilinogen Ur Leukocyte Esterase Urine WBC (Auto) Urine RBC (Auto) U Epithel Cells (Auto) Urine Bacteria (Auto) Urine Mucus (Auto) Urine Culture Reflexed Urine Glucose Influenza Type A Ag Influenza Type B Ag RSV (PCR) SARS-CoV-2 (PCR) 01/20/21 01/20/21 01/20/21 17:11 16:07 14:53 WBC RBC Hgb Hct MCV MCH MCHC RDW Plt Count MPV Gran % Eos # (Auto) Absolute Lymphs (auto) Absolute Monos (auto) Lymphocytes % Monocytes % Eosinophils % Basophils % Absolute Granulocytes Basophils # Sodium Potassium Chloride Carbon Dioxide Anion Gap BUN Creatinine Estimated GFR Glucose Lactic Acid 1.1 Calcium Total Bilirubin AST ALT Alkaline Phosphatase Troponin I Serum Total Protein Albumin Amylase Lipase Urine Color YELLOW Urine Appearance CLEAR Urine pH 6.0 Ur Specific [place] 1.017 Urine Protein 30 Urine Ketones NEGATIVE Urine Blood SMALL Urine Nitrite NEGATIVE Urine Bilirubin NEGATIVE Urine Urobilinogen 2 Ur Leukocyte Esterase NEGATIVE Urine WBC (Auto) 0-2 Urine RBC (Auto) 6-10 U Epithel Cells (Auto) NONE Urine Bacteria (Auto) NONE Urine Mucus (Auto) SLIGHT Urine Culture Reflexed YES Urine Glucose NEGATIVE Influenza Type A Ag NEGATIVE Influenza Type B Ag NEGATIVE RSV (PCR) NEGATIVE SARS-CoV-2 (PCR) NEGATIVE 01/20/21 01/20/21 01/20/21 14:00 13:55 13:55 WBC RBC Hgb Hct MCV MCH MCHC RDW Plt Count MPV Gran % Eos # (Auto) Absolute Lymphs (auto) Absolute Monos (auto) Lymphocytes % Monocytes % Eosinophils % Basophils % Absolute Granulocytes Basophils # Sodium 136 L Potassium 3.2 L Chloride 98 Carbon Dioxide 27 Anion Gap 14.5 BUN 23 H Creatinine 1.24 Estimated GFR > 60.0 Glucose 129 H Lactic Acid 2.9 H Calcium 11.5 H Total Bilirubin 0.90 AST 32 ALT 19 Alkaline Phosphatase 63 Troponin I 0.030 Serum Total Protein 8.4 H Albumin 4.6 Amylase 67 Lipase 92 Urine Color Urine Appearance Urine pH Ur Specific [place] Urine Protein Urine Ketones Urine Blood Urine Nitrite Urine Bilirubin Urine Urobilinogen Ur Leukocyte Esterase Urine WBC (Auto) Urine RBC (Auto) U Epithel Cells (Auto) Urine Bacteria (Auto) Urine Mucus (Auto) Urine Culture Reflexed Urine Glucose Influenza Type A Ag Influenza Type B Ag RSV (PCR) SARS-CoV-2 (PCR) 01/20/21 13:55 WBC 21.0 H RBC 5.33 Hgb 16.0 Hct 45.6 MCV 85.6 MCH 30.0 MCHC 35.1 RDW 11.8 Plt Count 259 MPV 11.5 H Gran % 78.0 H Eos # (Auto) 0.01 Absolute Lymphs (auto) 3.00 Absolute Monos (auto) 1.60 H Lymphocytes % 14.3 L Monocytes % 7.6 Eosinophils % 0.0 Basophils % 0.1 Absolute Granulocytes 16.34 H Basophils # 0.02 Sodium Potassium Chloride Carbon Dioxide Anion Gap BUN Creatinine Estimated GFR Glucose Lactic Acid Calcium Total Bilirubin AST ALT Alkaline Phosphatase Troponin I Serum Total Protein Albumin Amylase Lipase Urine Color Urine Appearance Urine pH Ur Specific [place] Urine Protein Urine Ketones Urine Blood Urine Nitrite Urine Bilirubin Urine Urobilinogen Ur Leukocyte Esterase Urine WBC (Auto) Urine RBC (Auto) U Epithel Cells (Auto) Urine Bacteria (Auto) Urine Mucus (Auto) Urine Culture Reflexed Urine Glucose Influenza Type A Ag Influenza Type B Ag RSV (PCR) SARS-CoV-2 (PCR) Orders (Last 24 hours) Category Date Time Status Up With Assistance TOLERATED Activity 01/20/21 18:16 Active Code Status Order ROUTINE Care 01/20/21 18:16 Active EKG-ER Only STAT Care 01/20/21 13:55 Completed IV Insertion STAT Care 01/20/21 13:55 Completed Order K Level 2 hours post-inf 2 HRS POST K-INFUSED Care 01/21/21 03:11 Active Oxygen-ED Only Nasal Cannula 2 lpm Care 01/20/21 16:[address] in Observation ROUTINE Care 01/20/21 18:16 Active Telemetry q4h Care 01/21/21 03:11 Active Weight,Daily 0600 Care 01/20/21 18:16 Active Child Care/Discharge Plan ROUTINE Cons 01/20/21 20:58 Active Clear Liquid Diet 01/20/21 Dinner Completed Clear Liquid Diet 01/20/21 Dinner Completed Soft Diet Diet 01/21/21 Lunch Active ABDOMEN AND PELVIS W/0 CONTRAS [CT] Stat Exams 01/20/21 13:56 Completed AMYLASE Stat Lab 01/20/21 13:55 Completed CBC W DIFF Stat Lab 01/20/21 13:55 Completed CBC W DIFF Stat Lab 01/21/21 01:50 Completed CMP Stat Lab 01/20/21 13:55 Completed CMP Stat Lab 01/21/21 01:50 Completed CULTURE,URINE Stat Lab 01/20/21 14:53 Received LIPASE Stat Lab 01/20/21 13:55 Completed Lactic Acid Stat Lab 01/20/21 13:55 Completed Lactic Acid Stat Lab 01/20/21 16:07 Completed TROPONIN Q3H Lab 01/20/21 14:00 Completed TROPONIN Q3H Lab 01/20/21 17:12 Completed TROPONIN Q3H Lab 01/20/21 20:00 Completed TROPONIN Q3H Lab 01/20/21 23:10 Completed TROPONIN Q3H Lab 01/21/21 01:50 Completed UA W/RFX UR CULTURE Stat Lab 01/20/21 14:53 Completed Acetaminophen 325 mg [Tylenol 325 mg] Med 01/20/21 18:16 Active 650 mg PO Q4H PRN PRN Amlodipine Besylate 5 mg [Norvasc 5 mg] Med 01/20/21 18:55 Active 10 mg PO DAILY Aspirin EC 81 mg [Ecotrin 81 mg] Med 01/21/21 10:00 Active 81 mg PO DAILY Bumetanide 1 mg [Bumex 1 mg] Med 01/21/21 10:00 Active 0.5 mg PO DAILY Buspirone HCl 5 mg [Buspar 5 mg] Med 01/20/21 22:00 Active 5 mg PO BID Carvedilol 12.5 mg [Coreg 12.5 mg] Med 01/20/21 22:00 Active 25 mg PO BID Citalopram Hydrobromide 20 mg* [ceLEXa 20 MG] Med 01/21/21 10:00 Active 40 mg PO DAILY Clonidine HCl 0.1 mg [Catapres 0.1 MG] Med 01/20/21 22:00 Active 0.1 mg PO BID Cyanocobalamin 500 Mcg [Vitamin B-12 500 MCG] Med 01/21/21 10:00 Active 1,000 mcg PO DAILY Ergocalciferol (Vitamin D2) [Vitamin D2] Med 01/25/21 10:00 Active 50,000 unit PO WEEKLY Ezetimibe 10 mg [Zetia 10 MG] Med 01/21/21 10:00 Active 10 mg PO DAILY Gabapentin 300 mg [Neurontin 300 mg] Med 01/20/21 22:00 Active 300 mg PO BID Hydromorphone 1 mg/1Ml Inj [Hydromorphone 1 mg/ml Med 01/20/21 14:01 Discontinued Injection] 1 mg .ROUTE .STK-MED ONE Hydromorphone 1 mg/1Ml Inj [Hydromorphone 1 mg/ml Med 01/20/21 16:07 Discontinued Injection] 1 mg .ROUTE .STK-MED ONE Hydromorphone 1 mg/1Ml Inj [Hydromorphone 1 mg/ml Med 01/20/21 18:16 Active Injection] 1 mg IV Q4H PRN PRN Hydromorphone 1 mg/1Ml Inj [Hydromorphone 1 mg/ml Med 01/20/21 13:55 Discontinued Injection] 1 mg IV STAT ONE Hydromorphone 1 mg/1Ml Inj [Hydromorphone 1 mg/ml Med 01/20/21 16:05 Discontinued Injection] 1 mg IV STAT ONE Hydroxyzine HCl 25 mg [Atarax 25 mg] Med 01/20/21 22:00 Active 25 mg PO BID Levofloxacin [Levofloxacin 500MG/100ML D5W] Med 01/21/21 10:00 Discontinued 500 mg in 100 ml IV Q24H10 Levofloxacin [Levofloxacin 500MG/100ML D5W] Med 01/21/21 22:00 Active 500 mg in 100 ml IV QPM Medication Intervention Med 01/21/21 08:15 Active 1 each MC .RT TO CHECK ON Medication Intervention Med 01/21/21 08:15 Active 1 each PO .RN TO CHECK ON Metolazone 2.5 mg [Zaroxolyn 2.5 MG] Med 01/21/21 10:00 Active 2.5 mg PO DAILY NaCl 0.9% 1000 ml [Sodium Chloride 0.9% 1000 ML] 1,000 Med 01/20/21 14:01 Discontinued ml .ROUTE UD NaCl 0.9% 1000 ml [Sodium Chloride 0.9% 1000 ML] 1,000 Med 01/21/21 06:55 Discontinued ml .ROUTE UD NaCl 0.9% 1000 ml [Sodium Chloride 0.9% 1000 ML] 1,000 Med 01/20/21 18:16 Active ml IV 100 mls/hr NaCl 0.9% 1000 ml [Sodium Chloride 0.9% 1000 ML] 1,000 Med 01/20/21 13:55 Discontinued ml IV 999 mls/hr Nicotine 14 mg [Nicoderm Cq 14 mg] Med 01/20/21 17:15 Discontinued 14 mg TOP Q24H Ondansetron HCl 4 mg/2 ml [Zofran 4 MG/2 ML VIAL] Med 01/20/21 14:01 Discontinued 0 mg .ROUTE .STK-MED ONE Ondansetron HCl 4 mg/2 ml [Zofran 4 MG/2 ML VIAL] Med 01/20/21 18:16 Active 4 mg IV Q6H PRN PRN Ondansetron HCl 4 mg/2 ml [Zofran 4 MG/2 ML VIAL] Med 01/20/21 13:55 Discontinued 4 mg IV STAT ONE Pantoprazole 40 mg [Protonix 40 mg IV] Med 01/20/21 14:01 Discontinued 40 mg IV .STK-MED ONE Pantoprazole 40 mg [Protonix 40 mg IV] Med 01/20/21 18:16 Active 40 mg IV Q24H Pantoprazole 40 mg [Protonix 40 mg IV] Med 01/20/21 13:55 Discontinued 40 mg IV STAT ONE Patient Own Med [Patient Own Medication] Med 01/20/21 20:36 Active See Dose Instructions IH Q4HPRN PRN Potassium Chloride 20Meq/100Ml [POTASSIUM CHLORIDE 20 Med 01/21/21 04:00 Discontinued mEq IN WATER 100ML] 20 meq in 100 ml IV Q2H Potassium Chloride 20Meq/100Ml [POTASSIUM CHLORIDE 20 Med 01/21/21 03:23 Discontinued mEq IN WATER 100ML] 100 ml IV UD Simvastatin 20Mg [Zocor 20Mg] Med 01/21/21 10:00 Active 40 mg PO DAILY Tamsulosin HCl 0.4 mg [Flomax 0.4 MG] Med 01/21/21 10:00 Active 0.4 mg PO DAILY Tramadol HCl 50 mg [Ultram 50 mg] Med 01/20/21 18:50 Active 50 mg PO BID PRN PRN Zolpidem Tartrate 5 mg [Ambien 5 MG Tablet] Med 01/20/21 22:00 Active 5 mg PO HS BiPap/CPAP ROUTINE RT 01/20/21 22:37 Active Oxygen Nasal Cannula 2 lpm RT 01/20/21 20:35 Active Pulse Oximetry .spot check RT 01/20/21 20:35 Active Respiratory MDI UD RT 01/20/21 20:38 Active Respiratory Therapy Assessment DAILY RT 01/20/21 20:39 Active Smoking Cessation Education ONCE RT 01/20/21 20:58 Completed Patient Care Notes (Last 24 hours) 01/21/21 06:27 Nursing Note by Navneet Marin After about 50 ml of potassium infused, pt c/o headache. Offered pt tylenol or tramadol, he said he would take whatever. Gave Tylenol. Pt then c/o that it would take an hour to kick in. At this time, Pt holding ice pack to his head and rocking back and forth. Pt called his to come in because of pain. Gave pt dilaudid for the headache and explained that it would work faster than the tylenol. Pt wanted IV taken out. Explained that his potassium was low and he needed to try to leave it in. Pt's called back and said that he had had this reaction to potassium in the past and they had forgotten to tell us. She stated that his doctor told him not to take potassium anymore. Stopped potassium infusion and unhooked IV tubing from patient. Notified Dr Frost. No new orders at this time. Initialized on 01/21/21 06:27 - END OF NOTE 01/20/21 22:00 (created 01/21/21 01:27) Nursing Note by Navneet Marin Asked pt what dose he takes of his potassium since it was not clear on the med list. Pt called his , who said that he no longer takes potassium. Initialized on 01/21/21 01:27 - END OF NOTE - Vitals & Intake/Output Vital Signs: Vital Signs Temperature 98.3 F 01/21/21 12:00 Pulse Rate 52 L 01/21/21 12:00 Respiratory Rate 16 01/21/21 12:00 Blood Pressure 115/61 01/21/21 12:00 O2 Sat by Pulse Oximetry 94 L 01/21/21 12:00 Intake & Output: Intake & Output 01/19/21 01/20/21 01/21/21 01/22/21 11:59 11:59 11:59 11:59 Intake Total 1378 Output Total 500 Balance 878 Weight 86.8 kg - Lab Result Diagrams: 01/21/21 01:50 01/21/21 01:50 Lab Results-Last 24 Hrs: Lab Results-Last 24 Hours 01/20/21 01/20/21 01/20/21 Range/Units 13:55 13:55 13:55 WBC 21.0 H (4.0-10.5) K/mm3 RBC 5.33 (4.1-5.6) M/mm3 Hgb 16.0 (12.5-18.0) gm/dl Hct 45.6 (42-50) % MCV 85.6 (78-100) fl MCH 30.0 (26-32) pg MCHC 35.1 (32-36) g/dl RDW 11.8 (11.5-14.0) % Plt Count 259 (150-450) K/mm3 MPV 11.5 H (7.5-11.0) fl Gran % 78.0 H (36.0-66.0) % Eos # (Auto) 0.01 (0-0.5) Absolute Lymphs (auto) 3.00 (1.0-4.6) Absolute Monos (auto) 1.60 H (0.0-1.3) Lymphocytes % 14.3 L (24.0-44.0) % Monocytes % 7.6 (0.0-12.0) % Eosinophils % 0.0 (0.00-5.0) % Basophils % 0.1 (0.0-0.4) % Absolute Granulocytes 16.34 H (1.4-6.9) Basophils # 0.02 (0-0.4) Sodium 136 L (137-145) mmol/L Potassium 3.2 L (3.5-5.1) mmol/L Chloride 98 (98-107) mmol/L Carbon Dioxide 27 (22-30) mmol/L Anion Gap 14.5 (5-15) MEQ/L BUN 23 H (9-20) mg/dL Creatinine 1.24 (0.66-1.25) mg/dL Estimated GFR > 60.0 ML/MIN Glucose 129 H (74-106) mg/dL Lactic Acid 2.9 H (0.4-2.0) Calcium 11.5 H (8.4-10.2) mg/dL Total Bilirubin 0.90 (0.2-1.3) mg/dL AST 32 (17-59) U/L ALT 19 (0-50) U/L Alkaline Phosphatase 63 (38-126) U/L Troponin I (0.000-0.034) ng/mL Serum Total Protein 8.4 H (6.3-8.2) g/dL Albumin 4.6 (3.5-5.0) g/dL Amylase 67 (30-110) U/L Lipase 92 (23-300) U/L Urine Color (YELLOW) Urine Appearance (CLEAR) Urine pH (5-6) Ur Specific [place] (1.005-1.025) Urine Protein (Negative) Urine Ketones (NEGATIVE) Urine Blood (0-5) Moses/ul Urine Nitrite (NEGATIVE) Urine Bilirubin (NEGATIVE) Urine Urobilinogen (0-1) mg/dL Ur Leukocyte Esterase (NEGATIVE) Urine WBC (Auto) (0-5) /HPF Urine RBC (Auto) (0-2) /HPF U Epithel Cells (Auto) (FEW) /HPF Urine Bacteria (Auto) (NEGATIVE) /HPF Urine Mucus (Auto) (NEGATIVE) /HPF Urine Culture Reflexed (NO) Urine Glucose (NEGATIVE) mg/dL Influenza Type A Ag (NEGATIVE) Influenza Type B Ag (NEGATIVE) RSV (PCR) (Negative) SARS-CoV-2 (PCR) (NEGATIVE) 01/20/21 01/20/21 01/20/21 Range/Units 14:00 14:53 16:07 WBC (4.0-10.5) K/mm3 RBC (4.1-5.6) M/mm3 Hgb (12.5-18.0) gm/dl Hct (42-50) % MCV (78-100) fl MCH (26-32) pg MCHC (32-36) g/dl RDW (11.5-14.0) % Plt Count (150-450) K/mm3 MPV (7.5-11.0) fl Gran % (36.0-66.0) % Eos # (Auto) (0-0.5) Absolute Lymphs (auto) (1.0-4.6) Absolute Monos (auto) (0.0-1.3) Lymphocytes % (24.0-44.0) % Monocytes % (0.0-12.0) % Eosinophils % (0.00-5.0) % Basophils % (0.0-0.4) % Absolute Granulocytes (1.4-6.9) Basophils # (0-0.4) Sodium (137-145) mmol/L Potassium (3.5-5.1) mmol/L Chloride (98-107) mmol/L Carbon Dioxide (22-30) mmol/L Anion Gap (5-15) MEQ/L BUN (9-20) mg/dL Creatinine (0.66-1.25) mg/dL Estimated GFR ML/MIN Glucose (74-106) mg/dL Lactic Acid 1.1 (0.4-2.0) Calcium (8.4-10.2) mg/dL Total Bilirubin (0.2-1.3) mg/dL AST (17-59) U/L ALT (0-50) U/L Alkaline Phosphatase (38-126) U/L Troponin I 0.030 (0.000-0.034) ng/mL Serum Total Protein (6.3-8.2) g/dL Albumin (3.5-5.0) g/dL Amylase (30-110) U/L Lipase (23-300) U/L Urine Color YELLOW (YELLOW) Urine Appearance CLEAR (CLEAR) Urine pH 6.0 (5-6) Ur Specific [place] 1.017 (1.005-1.025) Urine Protein 30 (Negative) Urine Ketones NEGATIVE (NEGATIVE) Urine Blood SMALL (0-5) Moses/ul Urine Nitrite NEGATIVE (NEGATIVE) Urine Bilirubin NEGATIVE (NEGATIVE) Urine Urobilinogen 2 (0-1) mg/dL Ur Leukocyte Esterase NEGATIVE (NEGATIVE) Urine WBC (Auto) 0-2 (0-5) /HPF Urine RBC (Auto) 6-10 (0-2) /HPF U Epithel Cells (Auto) NONE (FEW) /HPF Urine Bacteria (Auto) NONE (NEGATIVE) /HPF Urine Mucus (Auto) SLIGHT (NEGATIVE) /HPF Urine Culture Reflexed YES (NO) Urine Glucose NEGATIVE (NEGATIVE) mg/dL Influenza Type A Ag (NEGATIVE) Influenza Type B Ag (NEGATIVE) RSV (PCR) (Negative) SARS-CoV-2 (PCR) (NEGATIVE) 01/20/21 01/20/21 01/20/21 Range/Units 17:11 17:12 20:00 WBC (4.0-10.5) K/mm3 RBC (4.1-5.6) M/mm3 Hgb (12.5-18.0) gm/dl Hct (42-50) % MCV (78-100) fl MCH (26-32) pg MCHC (32-36) g/dl RDW (11.5-14.0) % Plt Count (150-450) K/mm3 MPV (7.5-11.0) fl Gran % (36.0-66.0) % Eos # (Auto) (0-0.5) Absolute Lymphs (auto) (1.0-4.6) Absolute Monos (auto) (0.0-1.3) Lymphocytes % (24.0-44.0) % Monocytes % (0.0-12.0) % Eosinophils % (0.00-5.0) % Basophils % (0.0-0.4) % Absolute Granulocytes (1.4-6.9) Basophils # (0-0.4) Sodium (137-145) mmol/L Potassium (3.5-5.1) mmol/L Chloride (98-107) mmol/L Carbon Dioxide (22-30) mmol/L Anion Gap (5-15) MEQ/L BUN (9-20) mg/dL Creatinine (0.66-1.25) mg/dL Estimated GFR ML/MIN Glucose (74-106) mg/dL Lactic Acid (0.4-2.0) Calcium (8.4-10.2) mg/dL Total Bilirubin (0.2-1.3) mg/dL AST (17-59) U/L ALT (0-50) U/L Alkaline Phosphatase (38-126) U/L Troponin I 0.030 0.030 (0.000-0.034) ng/mL Serum Total Protein (6.3-8.2) g/dL Albumin (3.5-5.0) g/dL Amylase (30-110) U/L Lipase (23-300) U/L Urine Color (YELLOW) Urine Appearance (CLEAR) Urine pH (5-6) Ur Specific [place] (1.005-1.025) Urine Protein (Negative) Urine Ketones (NEGATIVE) Urine Blood (0-5) Moses/ul Urine Nitrite (NEGATIVE) Urine Bilirubin (NEGATIVE) Urine Urobilinogen (0-1) mg/dL Ur Leukocyte Esterase (NEGATIVE) Urine WBC (Auto) (0-5) /HPF Urine RBC (Auto) (0-2) /HPF U Epithel Cells (Auto) (FEW) /HPF Urine Bacteria (Auto) (NEGATIVE) /HPF Urine Mucus (Auto) (NEGATIVE) /HPF Urine Culture Reflexed (NO) Urine Glucose (NEGATIVE) mg/dL Influenza Type A Ag NEGATIVE (NEGATIVE) Influenza Type B Ag NEGATIVE (NEGATIVE) RSV (PCR) NEGATIVE (Negative) SARS-CoV-2 (PCR) NEGATIVE (NEGATIVE) 01/20/21 01/21/21 01/21/21 Range/Units 23:10 01:50 01:50 WBC 14.2 H (4.0-10.5) K/mm3 RBC 4.49 (4.1-5.6) M/mm3 Hgb 13.9 (12.5-18.0) gm/dl Hct 39.3 L (42-50) % MCV 87.5 (78-100) fl MCH 31.0 (26-32) pg MCHC 35.4 (32-36) g/dl RDW 11.7 (11.5-14.0) % Plt Count 208 (150-450) K/mm3 MPV 10.5 (7.5-11.0) fl Gran % 61.5 (36.0-66.0) % Eos # (Auto) 0.04 (0-0.5) Absolute Lymphs (auto) 3.99 (1.0-4.6) Absolute Monos (auto) 1.39 H (0.0-1.3) Lymphocytes % 28.2 (24.0-44.0) % Monocytes % 9.8 (0.0-12.0) % Eosinophils % 0.3 (0.00-5.0) % Basophils % 0.2 (0.0-0.4) % Absolute Granulocytes 8.72 H (1.4-6.9) Basophils # 0.03 (0-0.4) Sodium 139 (137-145) mmol/L Potassium 2.7 L* (3.5-5.1) mmol/L Chloride 100 (98-107) mmol/L Carbon Dioxide 33 H (22-30) mmol/L Anion Gap 8.8 (5-15) MEQ/L BUN 18 (9-20) mg/dL Creatinine 1.21 (0.66-1.25) mg/dL Estimated GFR > 60.0 ML/MIN Glucose 106 (74-106) mg/dL Lactic Acid (0.4-2.0) Calcium 10.0 (8.4-10.2) mg/dL Total Bilirubin 0.80 (0.2-1.3) mg/dL AST 23 (17-59) U/L ALT 16 (0-50) U/L Alkaline Phosphatase 47 (38-126) U/L Troponin I 0.028 (0.000-0.034) ng/mL Serum Total Protein 6.8 (6.3-8.2) g/dL Albumin 3.7 (3.5-5.0) g/dL Amylase (30-110) U/L Lipase (23-300) U/L Urine Color (YELLOW) Urine Appearance (CLEAR) Urine pH (5-6) Ur Specific [place] (1.005-1.025) Urine Protein (Negative) Urine Ketones (NEGATIVE) Urine Blood (0-5) Moses/ul Urine Nitrite (NEGATIVE) Urine Bilirubin (NEGATIVE) Urine Urobilinogen (0-1) mg/dL Ur Leukocyte Esterase (NEGATIVE) Urine WBC (Auto) (0-5) /HPF Urine RBC (Auto) (0-2) /HPF U Epithel Cells (Auto) (FEW) /HPF Urine Bacteria (Auto) (NEGATIVE) /HPF Urine Mucus (Auto) (NEGATIVE) /HPF Urine Culture Reflexed (NO) Urine Glucose (NEGATIVE) mg/dL Influenza Type A Ag (NEGATIVE) Influenza Type B Ag (NEGATIVE) RSV (PCR) (Negative) SARS-CoV-2 (PCR) (NEGATIVE) 01/21/21 Range/Units 01:50 WBC (4.0-10.5) K/mm3 RBC (4.1-5.6) M/mm3 Hgb (12.5-18.0) gm/dl Hct (42-50) % MCV (78-100) fl MCH (26-32) pg MCHC (32-36) g/dl RDW (11.5-14.0) % Plt Count (150-450) K/mm3 MPV (7.5-11.0) fl Gran % (36.0-66.0) % Eos # (Auto) (0-0.5) Absolute Lymphs (auto) (1.0-4.6) Absolute Monos (auto) (0.0-1.3) Lymphocytes % (24.0-44.0) % Monocytes % (0.0-12.0) % Eosinophils % (0.00-5.0) % Basophils % (0.0-0.4) % Absolute Granulocytes (1.4-6.9) Basophils # (0-0.4) Sodium (137-145) mmol/L Potassium (3.5-5.1) mmol/L Chloride (98-107) mmol/L Carbon Dioxide (22-30) mmol/L Anion Gap (5-15) MEQ/L BUN (9-20) mg/dL Creatinine (0.66-1.25) mg/dL Estimated GFR ML/MIN Glucose (74-106) mg/dL Lactic Acid (0.4-2.0) Calcium (8.4-10.2) mg/dL Total Bilirubin (0.2-1.3) mg/dL AST (17-59) U/L ALT (0-50) U/L Alkaline Phosphatase (38-126) U/L Troponin I 0.026 (0.000-0.034) ng/mL Serum Total Protein (6.3-8.2) g/dL Albumin (3.5-5.0) g/dL Amylase (30-110) U/L Lipase (23-300) U/L Urine Color (YELLOW) Urine Appearance (CLEAR) Urine pH (5-6) Ur Specific [place] (1.005-1.025) Urine Protein (Negative) Urine Ketones (NEGATIVE) Urine Blood (0-5) Moses/ul Urine Nitrite (NEGATIVE) Urine Bilirubin (NEGATIVE) Urine Urobilinogen (0-1) mg/dL Ur Leukocyte Esterase (NEGATIVE) Urine WBC (Auto) (0-5) /HPF Urine RBC (Auto) (0-2) /HPF U Epithel Cells (Auto) (FEW) /HPF Urine Bacteria (Auto) (NEGATIVE) /HPF Urine Mucus (Auto) (NEGATIVE) /HPF Urine Culture Reflexed (NO) Urine Glucose (NEGATIVE) mg/dL Influenza Type A Ag (NEGATIVE) Influenza Type B Ag (NEGATIVE) RSV (PCR) (Negative) SARS-CoV-2 (PCR) (NEGATIVE) - Radiology Exams Ordered Rad Exams-Entire Visit: Radiology Procedures Category Date Time Status ABDOMEN AND PELVIS W/0 CONTRAS [CT] Stat Exams 01/20/21 13:56 Completed - Procedures and Test Procedures and Tests throughout Hospitalization: Therapy Orders & Screens 01/20/21 20:35 Oxygen Nasal Cannula 2 lpm Comment: Diagnosis: Abdominal pain 01/20/21 20:38 Respiratory MDI UD Comment: FOR PT OWN VENTOLIN MDI Diagnosis: Abdominal pain 01/20/21 20:39 Respiratory Therapy Assessment DAILY Comment: Diagnosis: Abdominal pain 01/20/21 20:58 Smoking Cessation Education ONCE Comment: Diagnosis: Abdominal pain Smoking Status: Current every day smoker How long have you smoked: 43 Have you smoked in the past 12 months: Yes Approximately how many cigarettes per day: 10 Do you dip or chew tobacco: No If,Former Smoker,when did you quit: 1 month ago 01/20/21 22:37 BiPap/CPAP ROUTINE Comment: Diagnosis: Abdominal pain Discharge Exam General Appearance: no apparent distress, alert Neurologic Exam: alert, oriented x 3, cooperative, normal mood/affect, nml cerebellar function, sensation nml, No motor deficits Eye Exam: PERRL, EOMI, eyes nml inspection Ears, Nose, Throat Exam: normal ENT inspection, pharynx normal, moist mucous membranes Neck Exam: normal inspection, non-tender, supple, full range of motion Respiratory Exam: normal breath sounds, lungs clear, No respiratory distress Cardiovascular Exam: regular rate/rhythm, normal heart sounds Gastrointestinal/Abdomen Exam: soft, No tenderness, No mass Male Genitalia Exam: deferred Rectal Exam: deferred Back Exam: normal inspection, normal range of motion, No CVA tenderness, No vertebral tenderness Extremity Exam: normal inspection, normal range of motion Skin Exam: normal color, warm, dry Final Diagnosis/Problem List - Final Discharge Diagnosis/Problem (1) Hypokalemia Current Visit: Yes Status: Resolved Code(s): E87.6 - HYPOKALEMIA (2) Abdominal pain Current Visit: Yes Status: Resolved Code(s): R10.9 - UNSPECIFIED ABDOMINAL PAIN (3) Elevated lactic acid level Current Visit: Yes Status: Acute Code(s): R79.89 - OTHER SPECIFIED ABNORMAL FINDINGS OF BLOOD CHEMISTRY (4) Leukocytosis Current Visit: Yes Status: Acute Code(s): D72.829 - ELEVATED WHITE BLOOD CELL COUNT, UNSPECIFIED - Discharge Discharge Date: 01/21/21 Disposition: Home, Self-Care Condition: Stable Prescriptions: No Action Carvedilol 12.5 mg [Coreg 12.5 mg] 25 mg PO BID #60 Aspirin 81 gm Chew [Baby Aspirin 81 mg Chew] 81 mg PO DAILY Cranberry Fruit [Cranberry] 4,200 mg PO DAILY Citalopram Hydrobromide [Celexa] 40 mg PO DAILY Clonidine HCl 0.1 mg [Catapres 0.1 MG] 0.1 mg PO BID Bumetanide [Bumex] 0.5 mg PO DAILY Gabapentin [Neurontin] 300 mg PO BID Tamsulosin HCl 0.4 mg [Flomax 0.4 MG] 0.4 mg PO DAILY Hydroxyzine HCl 25 mg [Atarax 25 mg] 25 mg PO BID Atorvastatin Calcium [Lipitor] 40 mg PO DAILY Cyanocobalamin (Vitamin B-12) [Vitamin B-12] 1 tab PO DAILY Ergocalciferol (Vitamin D2) [Vitamin D2] 1 cap PO WEEKLY Fluticasone/Vilanterol [Breo Ellipta 100-25 Mcg INH] 1 puff IH DAILY Ezetimibe 10 mg [Zetia 10 MG] 10 mg PO DAILY Zolpidem Tartrate 5 mg PO HS Tramadol HCl 50 mg PO BID PRN PRN Reason: Pain Buspirone HCl 5 mg PO BID Amlodipine Besylate 10 mg PO DAILY Metolazone [Zaroxolyn] 1 tab PO DAILY Albuterol Sulfate [Proair Respiclick] 2 puff IH Q4H Follow up with: JOY FROST MD [Primary Care Provider] - 5 Days
[2021-01-25] MEDS ORDERED: VITAMIN D2 PO SCH (10:00)
== END 2021-01-21 13:29 | disposition home or self-care (01) ==
LOC: ED 13:05 → MED SURG 18:08
PROVIDERS: ADMIT General Practice; ATTEND General Practice
DX: E87.6 Hypokalemia (principal); R10.9 Unspecified abdominal pain; R79.89 Other specified abnormal findings of blood chemistry; D72.829 Elevated white blood cell count, unspecified; Z79.899 Other long term (current) drug therapy; I10 Essential (primary) hypertension; J44.9 Chronic obstructive pulmonary disease, unspecified; E78.00 Pure hypercholesterolemia, unspecified; R11.2 Nausea with vomiting, unspecified; R51.9 Headache, unspecified; Z20.828 Contact with and (suspected) exposure to other viral communicable diseases
CPT/HCPCS: 0241U; 36000; 36415; 74176; 80053; 81001; 82150; 83605; 83690; 84484; 85025; 87086; 93005; 93268; 94660; 94760; 96360; 96374; 96375; 96376; 99285; G0378; J1170; J1956; J2405; J3480; A9270-GY

== ENCOUNTER 2021-01-22 11:20 | Emergency (ER) | payer MEDICARE ==
[2021-01-22] MEDS ORDERED: Inapsine 5 MG/2 ML IV ONE (11:36)
[2021-01-22] MEDS ORDERED: BENADRYL 50 MG/ML IV ONE (11:36)
[2021-01-22] MEDS ORDERED: Sodium Chloride 0.9% 1000 ML 1,000 ML IV STA (11:36)
[2021-01-22] MEDS ORDERED: Inapsine 5 MG/2 ML ONE (11:44)
[2021-01-22] MEDS ORDERED: BENADRYL 50 MG/ML ONE (11:45)
[2021-01-22] MEDS ORDERED: Sodium Chloride 0.9% 1000 ML 1,000 ML ONE (11:45)
[2021-01-22 11:52] LABS: Absolute Neutrophil Ct (ANC) 10.71 (1.4-6.9); BASOPHIL % 0.2 % (0.0-0.4); Basophil (Absolute #) 0.03 (0-0.4); Eosinophil % 0.4 % (0.00-5.0); Eosinophil (Absolute #) 0.07 (0-0.5); Hematocrit 42.9 % (42-50); Hemoglobin 15.4 gm/dl (12.5-18.0); Lymphocyte (Absolute #) 3.74 (1.0-4.6); Lymphocytes % 23.2 % (24.0-44.0); Mean Corpuscular Hemoglobin 30.5 pg (26-32); Mean Corpuscular Hgb Concent. 35.9 g/dl (32-36); Mean Platelet Volume 10.9 fl (7.5-11.0); Monocyte (Absolute #) 1.54 (0.0-1.3); Monocytes % 9.6 % (0.0-12.0); Neutrophil % 66.6 % (36.0-66.0); Platelet Count 279 K/mm3 (150-450); Red Blood Count 5.05 M/mm3 (4.1-5.6); Red Cell Distribution Width 11.7 % (11.5-14.0); White Blood Count 16.1 K/mm3 (4.0-10.5)
[2021-01-22 12:04] LABS: ALBUMIN 4.5 g/dL (3.5-5.0); ANION GAP 16.8 MEQ/L (5-15); BILIRUBIN,TOTAL 1.1 mg/dL (0.2-1.3); Calcium 10.5 mg/dL (8.4-10.2); Creatinine 1 1.41 mg/dL (0.66-1.25); EST GLOMERULAR FILTRATION RATE 53.4 ML/MIN
--- NOTE | 2021-01-22 12:09 | ERPHSYRPT ---
- History of Present Illness Time Seen by Provider: 01/22/21 12:06 Historian: patient, family Exam Limitations: no limitations Patient Subjective Stated Complaint: abd pain and nausea Triage Nursing Assessment: pt to ED c/o abd pain and nausea onset yesterday after being DC from this hospital. pt states he does not remember his last BM. bowel sounds active in all quads. pt rates 1/10 pain currently but was thrashing in wheelchair and was very guarded when being wheeled to room. denies emesis currently. was dx with enteritis when here previously. Physician History: c/o abd pain and nausea onset yesterday after being DC from this hospital. pt states he does not remember his last BM. bowel sounds active in all quads. pt rates 1/10 pain currently but was thrashing in wheelchair and was very guarded when being wheeled to room. denies emesis currently Timing/Duration: today Activities at Onset: emotional stress Quality: cramping Abdominal Pain Onset Location: generalized abdomen Severity of Pain-Max: moderate Severity of Pain-Current: mild Modifying Factors: Improves With: nothing Associated Symptoms: denies symptoms Previous symptoms: same symptoms as today, recent hospitalization Allergies/Adverse Reactions: codeine Adverse Reaction (Severe, Verified 01/20/21 13:18) spouse and pt states "he gets nasty and mean" potassium chloride Adverse Reaction (Intermediate, Verified 01/21/21 06:37) Headache Severe headache Home Medications: Alendronate Sodium 70 mg [Fosamax 70 MG] 70 mg PO WEEKLY 01/22/21 [History] Amlodipine Besylate 10 mg PO DAILY 01/22/21 [History] Aspirin 81 gm Chew [Baby Aspirin 81 mg Chew] 81 mg PO DAILY 01/22/21 [History] Atorvastatin Calcium [Lipitor] 20 mg PO DAILY 01/22/21 [History] Bumetanide 0.5 mg PO DAILY 01/22/21 [History] Buspirone HCl 5 mg [Buspar 5 mg] 5 mg PO BID 01/22/21 [History] Citalopram Hydrobromide [Citalopram HBr] 40 mg PO DAILY 01/22/21 [History] Clonidine HCl 0.1 mg [Catapres 0.1 MG] 0.1 mg PO DAILY 01/22/21 [History] Cranberry Fruit Extract/Vit C [Cvs Cranberry-Vitamin C Sfgl] 1 each PO DAILY 01/22/21 [History] Eplerenone 25 mg PO DAILY 01/22/21 [History] Ergocalciferol (Vitamin D2) [Vitamin D2] 50,000 unit PO Q7D 01/22/21 [History] Ezetimibe 10 mg [Zetia 10 MG] 10 mg PO DAILY 01/22/21 [History] Gabapentin 300 mg PO BID 01/22/21 [History] Hydroxyzine HCl 25 mg [Atarax 25 mg] 25 mg PO DAILY 01/22/21 [History] Mecobalamin [B12 Active] 500 mcg PO DAILY 01/22/21 [History] Metolazone 2.5 mg [Zaroxolyn 2.5 MG] 2.5 mg PO DAILY 01/22/21 [History] Naproxen 500 mg [Naprosyn 500 MG] 500 mg PO BID 01/22/21 [History] Tamsulosin HCl 0.4 mg [Flomax 0.4 MG] 0.4 mg PO DAILY 01/22/21 [History] Zolpidem Tartrate 10 mg [Ambien 10 MG] 10 mg PO DAILY 01/22/21 [History] carvediloL [Carvedilol] 25 mg PO DAILY 01/22/21 [History] Hx Tetanus, Diphtheria Vaccination/Date Given: Yes Hx Influenza Vaccination/Date Given: Yes Hx Pneumococcal Vaccination/Date Given: No Immunizations Up to Date: Yes Travel Risk - International Travel Have you traveled outside of the country in past 3 weeks: No - Coronavirus Screening Are you exhibiting any of the following symptoms?: No Close contact with a COVID-19 positive Pt in past 14-21 Days: No - Vaccine Status Have you recieved a Covid-19 vaccination: Yes [employer]: [facility] - Vaccination Dates Date of 2cond Vaccination (if applicable): scheduled - Review of Systems Constitutional: No Fever, No Chills Eyes: No Symptoms Ears, Nose, & Throat: No Symptoms Respiratory: No Cough, No Dyspnea Cardiac: No Chest Pain, No Edema, No Syncope Abdominal/Gastrointestinal: Abdominal Pain, No Nausea, No Vomiting, No Diarrhea Genitourinary Symptoms: No Dysuria Musculoskeletal: No Back Pain, No Neck Pain Skin: No Rash Neurological: No Dizziness, No Focal Weakness, No Sensory Changes Psychological: Anxiety Endocrine: No Symptoms All Other Systems: Reviewed and Negative - Past Medical History Pertinent Past Medical History: Yes Neurological History: No Pertinent History ENT History: No Pertinent History Cardiac History: Hypertension, Myocardial Infarction ([place]) Respiratory History: COPD Endocrine Medical History: No Pertinent History Musculoskeletal History: Arthritis GI Medical History: GERD, Hepatitis, Hernia, Other History: No Pertinent History Psycho-Social History: Anxiety, Depression Male Reproductive Disorders: No Pertinent History Other Medical History: Previous R LL fx, R forearm fx. enteritis - Past Surgical History Past Surgical History: Yes Neuro Surgical History: No Pertinent History Cardiac: No Pertinent History Respiratory: No Pertinent History Gastrointestinal: Hernia Repair Genitourinary: No Pertinent History Musculoskeletal: Orthopedic Surgery Male Surgical History: No Pertinent History Other Surgical History: broken nose. right arm fx. right leg fx. left knee meniscus repair, right inguinal hernia repair. back surgery - Social History Smoking Status: Current every day smoker How long have you smoked: 43 Exposure to second hand smoke: Yes Drug Use: none Patient Lives Alone: No - Nursing Vital Signs Nursing Vital Signs: Initial Vital Signs Temperature 98.1 F 01/22/21 11:23 Pulse Rate 100 H 01/22/21 11:23 Respiratory Rate 18 01/22/21 11:23 Blood Pressure 165/111 01/22/21 11:23 O2 Sat by Pulse Oximetry 97 01/22/21 11:23 Pain Scale Pain Intensity 6 - Physical Exam General Appearance: no apparent distress, alert Eye Exam: PERRL/EOMI, eyes nml inspection Ears, Nose, Throat Exam: normal ENT inspection, pharynx normal, moist mucous membranes Neck Exam: normal inspection, non-tender, supple, full range of motion Respiratory Exam: normal breath sounds, lungs clear, No respiratory distress Cardiovascular Exam: regular rate/rhythm, normal heart sounds Gastrointestinal/Abdomen Exam: soft, distention, No tenderness, No mass Rectal Exam: deferred Back Exam: normal inspection, normal range of motion, No CVA tenderness, No vertebral tenderness Extremity Exam: normal inspection, normal range of motion, pelvis stable Neurologic Exam: alert, oriented x 3, cooperative, normal mood/affect, nml cerebellar function, sensation nml, No motor deficits Skin Exam: normal color, warm, dry SpO2 Interpretation: normal SpO2: 98 O2 Delivery: Room Air - Course Nursing assessment & vital signs reviewed: Yes Ordered Tests: Active Orders 24 hr Category Date Time Status OBSTR/ACUTE ABDOMEN SERIES Stat Exams 01/22/21 11:37 Ordered AMYLASE Stat Lab 01/22/21 11:36 Completed CBC W DIFF Stat Lab 01/22/21 11:36 Completed CMP Stat Lab 01/22/21 11:36 Completed LIPASE Stat Lab 01/22/21 11:36 Completed TROPONIN Stat Lab 01/22/21 10:38 Completed Medication Summary Generic Name Dose Route Start Last Admin Trade Name Freq PRN Reason Stop Dose Admin Ceftriaxone Sodium/Dextrose 1 g in 50 mls @ 100 mls/hr 01/22/21 13:05 01/22/21 13:13 Rocephin 1 Gm-D5w 50 Ml Bag IV 01/22/21 13:34 100 ml/hr STAT STA 100 mls/hr Administration Discontinued Medications Generic Name Dose Route Start Last Admin Trade Name Freq PRN Reason Stop Dose Admin Diphenhydramine HCl 25 mg 01/22/21 11:36 01/22/21 12:00 Benadryl 50 Mg/Ml IV 01/22/21 11:37 25 mg STAT ONE Administration Diphenhydramine HCl Confirm 01/22/21 11:45 Benadryl 50 Mg/Ml Administered 01/22/21 11:46 Dose 50 mg .ROUTE .STK-MED ONE Droperidol 1.25 mg 01/22/21 11:36 01/22/21 12:01 Inapsine 5 Mg/2 Ml IV 01/22/21 11:37 1.25 mg STAT ONE Administration Droperidol Confirm 01/22/21 11:44 Inapsine 5 Mg/2 Ml Administered 01/22/21 11:45 Dose 5 mg .ROUTE .STK-MED ONE Sodium Chloride 1,000 mls @ 999 mls/hr 01/22/21 11:36 01/22/21 13:01 Sodium Chloride 0.9% 1000 Ml IV 01/22/21 12:36 Infused .Q1H1M STA Infusion Sodium Chloride Confirm 01/22/21 11:45 Sodium Chloride 0.9% 1000 Ml Administered 01/22/21 11:46 Dose 1,000 mls @ ud .ROUTE .STK-MED ONE Ceftriaxone Sodium/Dextrose Confirm 01/22/21 13:11 Rocephin 1 Gm-D5w 50 Ml Bag Administered 01/22/21 13:12 Dose 1 g in 50 mls @ ud IV .STK-MED ONE Potassium Bicarbonate 50 meq 01/22/21 12:59 K-Lyte 25 Meq PO 01/22/21 13:00 STAT ONE Lab/Rad Data: Laboratory Result Diagrams 01/22/21 11:36 01/22/21 11:36 Laboratory Results 01/22/21 01/22/21 01/22/21 Range/Units 11:36 11:36 10:38 WBC 16.1 H (4.0-10.5) K/mm3 RBC 5.05 (4.1-5.6) M/mm3 Hgb 15.4 (12.5-18.0) gm/dl Hct 42.9 (42-50) % MCV 85.0 (78-100) fl MCH 30.5 (26-32) pg MCHC 35.9 (32-36) g/dl RDW 11.7 (11.5-14.0) % Plt Count 279 D (150-450) K/mm3 MPV 10.9 (7.5-11.0) fl Gran % 66.6 H (36.0-66.0) % Eos # (Auto) 0.07 (0-0.5) Absolute Lymphs (auto) 3.74 (1.0-4.6) Absolute Monos (auto) 1.54 H (0.0-1.3) Lymphocytes % 23.2 L (24.0-44.0) % Monocytes % 9.6 (0.0-12.0) % Eosinophils % 0.4 (0.00-5.0) % Basophils % 0.2 (0.0-0.4) % Absolute Granulocytes 10.71 H (1.4-6.9) Basophils # 0.03 (0-0.4) Sodium 137 (137-145) mmol/L Potassium 2.9 L* (3.5-5.1) mmol/L Chloride 98 (98-107) mmol/L Carbon Dioxide 25 (22-30) mmol/L Anion Gap 16.8 H (5-15) MEQ/L BUN 18 (9-20) mg/dL Creatinine 1.41 H (0.66-1.25) mg/dL Estimated GFR 53.4 ML/MIN Glucose 122 H (74-106) mg/dL Calcium 10.5 H (8.4-10.2) mg/dL Total Bilirubin 1.10 (0.2-1.3) mg/dL AST 38 (17-59) U/L ALT 27 (0-50) U/L Alkaline Phosphatase 60 (38-126) U/L Troponin I 0.023 (0.000-0.034) ng/mL Serum Total Protein 8.0 (6.3-8.2) g/dL Albumin 4.5 (3.5-5.0) g/dL Amylase 66 (30-110) U/L Lipase 131 (23-300) U/L CT/ABDOMEN AND PELVIS W/0 CONTRAS Indication: Abdomen cramping, pain, nausea, vomiting, and fever. Multiple contiguous axial images obtained through the abdomen and pelvis without contrast. Comparison: None Lung bases demonstrates mild bibasilar subsegmental atelectasis/scarring and a few tiny calcified granulomas. No infiltrate or effusion. Heart is not enlarged. Small right infrahilar and distal paraesophageal calcified nodes. Small hiatal hernia. Noncontrasted stomach and bowel loops appear nonobstructed. Normal appendix. Mild diffuse scattered colonic diverticulosis without bety diverticulitis. No free fluid/air. Both kidneys demonstrates nonspecific perinephric stranding. Gallbladder contracted without gallstones. A few splenic calcified granulomas. Remaining liver, gallbladder, pancreas, spleen, adrenal glands, kidneys, ureters, and bladder are unremarkable for noncontrast exam. Scattered aortoiliac calcifications including right renal artery calcifications. No AAA. Osseous structures demonstrates moderate/advanced multilevel lumbar degenerative spondylosis and L2-S1 fusion surgery with intact posterior spinal hardware and L2-L3 intervertebral spacer. Small bilateral fatty inguinal hernias. Impression: 1. Small hiatal hernia, scattered colonic diverticulosis, scattered arteriosclerotic disease, small bilateral fatty inguinal hernias, chronic bony findings, and old granulomatous disease. 2. Remaining CT abdomen/pelvis without contrast exam is negative. - Progress Progress: improved Counseled pt/family regarding: lab results, diagnosis, need for follow-up, rad results - Departure Departure Disposition: Home Clinical Impression: Hypokalemia due to excessive gastrointestinal loss of potassium Abdominal pain Qualifiers: Abdominal location: generalized Qualified Code(s): R10.84 - Generalized abdominal pain Condition: Stable Critical Care Time: Yes Critical Care Time(excluding separately billable procedures): Critical 30-74 mins Referrals: JOY FROST MD [Primary Care Provider] - Instructions: Hypokalemia (DC), High Potassium Diet, Acute Abdomen (Belly Pain), Adult (DC) Prescriptions: Potassium Bicarbonate 25 MEQ [K-Lyte 25 Meq] 25 meq PO DAILY #30 tab Levofloxacin [Levofloxacin 250MG Tablet] 250 mg PO DAILY #7 tab
[2021-01-22 12:12] LABS: Potassium 2.9 mmol/L (3.5-5.1)
[2021-01-22] MEDS ORDERED: K-LYTE 25 MEQ PO ONE (12:59)
[2021-01-22] MEDS ORDERED: ROCEPHIN 1 Gm-D5w 50 ml Bag** 1 G/50 ML IVPB IV STA (13:05)
[2021-01-22] MEDS ORDERED: ROCEPHIN 1 Gm-D5w 50 ml Bag** 1 G/50 ML IVPB IV ONE (13:11)
[2021-01-22] MEDS ORDERED: K-LYTE 25 MEQ ONE (13:17)
[2021-01-22 13:21] VITALS: BP 151/77; PULSE 81; O2SAT 93
[2021-01-22 16:26] LABS: Slide Review 1 YES
--- NOTE | 2021-01-22 22:53 | XRAY ---
Indication: Abdomen pain. Nausea and vomiting. Comparison: None. 2 view abdomen nonacute and nonobstructed. Solid organs unremarkable. Osseous structures intact with moderate/advanced degenerative changes throughout the thoracolumbar spine and mid to lower lumbar fusion surgery with intact fusion hardware. Single AP chest demonstrates minimal bibasilar atelectasis/scarring. Remaining heart and lungs unremarkable. Bony thorax intact. Impression: Nonacute nonobstructed abdomen with chronic features. Nonacute one view chest also with chronic features. Findings are grossly similar to the CT abdomen/pelvis 2 days ago.
== END 2021-01-22 14:02 | disposition home or self-care (01) ==
LOC: ED 11:20
DX: E87.6 Hypokalemia (principal); R10.84 Generalized abdominal pain
CPT/HCPCS: 36000; 36415; 74022; 80053; 82150; 83690; 84484; 85025; 96360; 96365; 96374; 96375; 99284; 99291; J0696; J1200; A9270-GY

== ENCOUNTER 2021-02-27 09:35 | Day surgery (SDC) | payer MEDICARE ==
--- NOTE | 2021-02-27 08:44 | HP ---
DATE OF SURGERY: 02/27/2021 HISTORY OF PRESENT ILLNESS: The patient is a 65 year-old with nausea, some vague abdominal aches upper abdomen and no prior colonoscopy, some shoulder aches and pains. Ultrasound negative for stones. CT scan negative for obvious acute finding. He mentioned something about taking Reglan that helped some. He denies any diarrhea. Stools every other day. PAST MEDICAL HISTORY: Obstructive sleep apnea, hypertension. Benign prostatic hypertrophy in the past. Chronic lung disease. PAST SURGICAL HISTORY: Broken leg, broken arm, hernia repair both sides in the past. MEDICATIONS: Potassium, metoclopramide, ezetimibe, atorvastatin, Naprosyn, Bumex, gabapentin, buspirone, Zolpidem, metolazone, carvedilol, hydroxyzine, amlodipine, clonidine, citalopram, Fosamax, Breo Ellipta, vitamin B12, cranberry, vitamin D2, tamsulosin, aspirin, bumetanide, finasteride, tramadol. ALLERGIES: CODEINE. POTASSIUM CHLORIDE. FAMILY HISTORY: Heart disease, diabetes. Negative for colon or stomach cancer. SOCIAL HISTORY: No alcohol abuse. REVIEW OF SYSTEMS: Fourteen systems reviewed. No chest pain or palpitations. Other systems negative or noncontributory as above and per preadmission questionnaire. PHYSICAL EXAMINATION: GENERAL: No acute distress. HEENT: Sclerae nonicteric. NECK: No JVD. CHEST: Equal excursion, nonlabored breathing. CVS: Regular rate and rhythm. ABDOMEN: Soft. No peritoneal signs. EXTREMITIES: No significant edema. NEURO: Alert, oriented, moving extremities symmetrically. RECTAL: Deferred timed to endoscopy exam. PSYCH: Appropriate mood and affect. IMPRESSION: The patient is a 65 year-old in need of screening colonoscopy given his nausea, upper abdominal aches he would benefit from upper endoscopy to evaluate for gastritis, peptic ulcer disease, esophagitis or other etiology. He also needs screening colonoscopy for further evaluation. Risks and benefits explained in detail including but not limited to bleeding or infection, risk of bowel injury or perforation possibly requiring open procedure, risk of missed or nondiagnosis or incomplete exam possibly requiring barium enema/barium swallow, other studies or procedures. General risk of anesthesia or sedation but not limited to. Possibility of inability to diagnose the etiology of his symptoms possibly requiring other studies or procedure. He understands. I will also order a HIDA as an outpatient for evaluation as well. Will proceed with EGD and colonoscopy as an outpatient.
[~2021-02-27 09:35] MED LIST changes: -CEFAZOLIN 2 GM-D5W BAG** 2 GM/50 ML ML IV ONE; -Lactated Ringers 1,000 ML IV ONE; -Sensorcaine 0.25% 10 ML ONE
[2021-02-27] MEDS ORDERED: Lactated Ringers 1,000 ML IV ONE (09:48)
[2021-02-27 10:30] LABS: ALBUMIN 3.7 g/dL (3.5-5.0); ALKALINE PHOSPHATASE 62 U/L (38-126); ANION GAP 10.6 MEQ/L (5-15); BLOOD UREA NITROGEN 21 mg/dL (9-20); CHLORIDE 104 mmol/L (98-107); Calcium 9.2 mg/dL (8.4-10.2); Carbon Dioxide 26 mmol/L (22-30); Creatinine 1 1.15 mg/dL (0.66-1.25); EST GLOMERULAR FILTRATION RATE > 60.0 ML/MIN; Glucose 104 mg/dL (74-106); Potassium 3.6 mmol/L (3.5-5.1); SGOT/AST 25 U/L (17-59); SGPT/ALT 21 U/L (0-50); SODIUM 137 mmol/L (137-145); Total Protein 6.9 g/dL (6.3-8.2)
[2021-02-27] MEDS ORDERED: DIPRIVAN 200 MG/20 ML IV ONE ×3 (12:13→12:31)
[2021-02-27 13:31] VITALS: O2SAT 94
[2021-02-27 13:55] VITALS: BP 144/61; PULSE 67
--- NOTE | 2021-02-27 15:11 | OP ---
SURGERY DATE/TIME: 02/27/2021 1212 PREOPERATIVE DIAGNOSES: 1) Persistent upper abdominal aches and nausea. 2) Need for screening colonoscopy. POSTOPERATIVE DIAGNOSES: 1) Large duodenal bulb ulcer. No active bleeding. 2) Mild gastritis. 3) Very small hiatal hernia. 4) Minimal chronic distal esophagitis. 5) Moderate to severe diverticulosis left colon. 6) Fair bowel prep. 7) ASA Class III. 8) Colon withdrawal time approximately 8 minutes. 9) Sigmoid colon polyps x2. PROCEDURES: 1) EGD with cold biopsy of antrum to evaluate for Helicobacter pylori. 2) Cold biopsy distal esophagus to evaluate mild chronic distal esophagitis. 3) Colonoscopy to cecum. 4) Hot snare polypectomy of approximately 4 mm sigmoid colon polyp. 5) Hot biopsy polypectomy of small 2 mm early polyp versus hyperplastic lesion. SURGEON: Dr. Jhonatan Cabezas. ANESTHESIA: MAC. ESTIMATED BLOOD LOSS: Minimal. INDICATIONS: As noted above. Risks and benefits explained in detail and not limited to and consent obtained. DESCRIPTION OF PROCEDURE AND FINDINGS: The patient is taken to the operating room. MAC anesthesia introduced. After official time out and no disagreement with planned procedure, bite block positioned. Video gastroscope easily passed down the esophagus through the patent pylorus to the junction of second and third portion of the duodenum. Third, second and first portion of duodenum grossly unremarkable. In the duodenal bulb just past the pylorus, there is a large ulcer crater. The duodenal mucosa around this appeared benign appearing. There was no active bleeding in this ulcer. The scope is pulled back. Cold biopsy taken in the antrum. He had some mild gastritis. Cold biopsy taken to evaluate for Helicobacter pylori. Good hemostasis noted. On retroflex he had a very slight or tiny hiatal hernia. The scope straightened. Gastroesophageal junction was about 38 cm. Z-line was fairly crisp. Maybe almost just a Schatzki's ring but no evidence of any narrowing or obstruction. He did have a little bit of chronic inflammation on the esophageal side of the gastroesophageal junction. Cold biopsy taken. Good hemostasis noted. Gastroesophageal junction is about 38 cm. The remainder of the esophagus grossly unremarkable. No signs of any obvious masses or mucosal lesions. Attention is then turned to colonoscopy. Digital rectal exam did not reveal any rectal masses. Video colonoscope inserted and passed up through a tortuous moderate to severe diverticulosis of sigmoid colon. At about 25 cm or so up, there appeared to be a pedunculated polyp about 4 mm removed with hot snare polypectomy with brief bursts of cautery. Good hemostasis noted. The base appeared viable. The scope was able to be slowly navigated through this moderate to severe diverticulosis up through the descending, transverse colon around to the cecum. Appendiceal orifice and valve well visualized and photo document larissa. Prep overall was fair. There was a little bit of liquidy, semisolid stool just slightly limiting exam for small lesions. The scope is carefully withdrawn. No signs of any large polyps, masses or obstructing lesions. Again, he did have left-sided diverticulosis. He did have a small 2 mm mid sigmoid colon, early polyp versus hyperplastic lesion removed with hot biopsy forceps. The sigmoid polypectomy site had good hemostasis. The rectum is grossly unremarkable. Prep overall is fair. He had a little bit of liquidy semisolid stool just slightly limiting the exam for small lesions. The scope is withdrawn. The patient tolerated the procedure well. Findings discussed with the family out in the waiting area. He is to avoid aspirin, NSAID or any other thinners in the short term. He should continue proton pump inhibitor b.i.d., Protonix for a week and then once daily thereafter. I will see him in the office next week to go over the findings, will need to follow up upper endoscopy probably eight weeks or so to evaluate for healing.
== END 2021-02-27 13:35 | disposition home or self-care (01) ==
LOC: SDC 09:35
PROVIDERS: ATTEND Surgery
DX: Z12.11 Encounter for screening for malignant neoplasm of colon (principal); R10.10 Upper abdominal pain, unspecified; K29.00 Acute gastritis without bleeding; K44.9 Diaphragmatic hernia without obstruction or gangrene; K20.90 Esophagitis, unspecified without bleeding; K57.30 Diverticulosis of large intestine without perforation or abscess without bleeding; D12.5 Benign neoplasm of sigmoid colon; I10 Essential (primary) hypertension; G47.33 Obstructive sleep apnea (adult) (pediatric); Z79.899 Other long term (current) drug therapy
CPT/HCPCS: 36415; 80053; 88305; 88342; J2704

== ENCOUNTER 2021-05-01 08:33 | Day surgery (SDC) | payer MEDICARE ==
--- NOTE | 2021-05-01 07:51 | HP ---
DATE OF SURGERY: 05/01/2021 HISTORY OF PRESENT ILLNESS: The patient is a 66 year-old who had some upper abdominal aches. He ended up having endoscopy that showed large duodenal bulb ulcer, no active bleeding, some mild gastritis. He has been on proton pump inhibitor treatment. He is in need of follow up upper endoscopy to evaluate for healing. PAST MEDICAL HISTORY: Obstructive sleep apnea, hypertension, benign prostatic hypertrophy, chronic lung disease. PAST SURGICAL HISTORY: Broken leg. Broken arm. Hernia repair. He had endoscopy in the past. MEDICATIONS: Previously included potassium, metoclopramide, atorvastatin, Naprosyn, Bumex, gabapentin, buspirone, Chantix, Eplerenone, Zolpidem, metolazone, carvedilol, hydroxyzine, amlodipine, clonidine, citalopram, Fosamax, Breo Ellipta, vitamin B12, cranberry, vitamin D2, tamsulosin, aspirin, bumetanide, finasteride, tramadol, ezetimibe. ALLERGIES: CODEINE. POTASSIUM CHLORIDE. FAMILY HISTORY: Heart disease. Diabetes. Negative for colon or stomach cancer,. SOCIAL HISTORY: No alcohol abuse. REVIEW OF SYSTEMS: Fourteen systems reviewed pertinent for as noted above. No chest pain or palpitations. Other systems negative or noncontributory as above and per preadmission questionnaire. PHYSICAL EXAMINATION: GENERAL: No acute distress. HEENT: Sclerae nonicteric. NECK: No JVD. CHEST: Equal excursion, nonlabored breathing. CVS: Regular rate and rhythm. ABDOMEN: Soft. No peritoneal signs. EXTREMITIES: No significant edema. NEURO: Alert, oriented, moving extremities symmetrically. PSYCH: Appropriate mood and affect. IMPRESSION: History of large duodenal bulb ulcer. He is in need of follow up upper endoscopy to evaluate for healing. General risk of bleeding or infection, risk of bowel injury or perforation possibly requiring open procedure, risk of aspiration, risk of sedation but not limited to. Consent obtained, will proceed with EGD possible biopsy as an outpatient.
[2021-05-01] MEDS ORDERED: Lactated Ringers 1,000 ML IV ONE ×2 (09:04→09:06)
[2021-05-01 09:56] LABS: ALBUMIN 4.1 g/dL (3.5-5.0); ALKALINE PHOSPHATASE 66 U/L (38-126); BLOOD UREA NITROGEN 18 mg/dL (9-20); CHLORIDE 92 mmol/L (98-107); Carbon Dioxide 29 mmol/L (22-30); Creatinine 1 1.18 mg/dL (0.66-1.25); EST GLOMERULAR FILTRATION RATE > 60.0 ML/MIN; Glucose 108 mg/dL (74-106); SGOT/AST 25 U/L (17-59); SGPT/ALT 18 U/L (0-50); SODIUM 132 mmol/L (137-145); Total Protein 7.2 g/dL (6.3-8.2)
[2021-05-01 09:57] LABS: Potassium 2.8 mmol/L (3.5-5.1)
[2021-05-01] MEDS: POTASSIUM CHLORIDE 20 mEq IN WATER 100ML 100 ML IV SCH ×2 (10:34→12:53)
[2021-05-01] MEDS ORDERED: DIPRIVAN 200 MG/20 ML IV ONE (11:59)
[2021-05-01] MEDS ORDERED: Xylocaine-Mpf 2% 5 Ml Vial ONE (11:59)
[2021-05-01 14:11] VITALS: O2SAT 95
[2021-05-01 15:25] VITALS: BP 137/73; PULSE 61
--- NOTE | 2021-05-02 10:04 | OP ---
SURGERY DATE/TIME: 05/01/2021 1200 PREOPERATIVE DIAGNOSIS: History of large duodenal bulb ulcer, need for follow up endoscopy to evaluate for healing. POSTOPERATIVE DIAGNOSES: 1) Much improved, much smaller duodenal bulb ulcer not yet completely healed but much improved. 2) Minimal to mild gastritis. PROCEDURES: EGD with cold biopsy of antrum for Helicobacter pylori. SURGEON: Dr. Jhonatan Cabezas. ANESTHESIA: MAC. ESTIMATED BLOOD LOSS: Minimal. INDICATIONS: As noted above. Risks and benefits explained in detail and not limited to and consent obtained. DESCRIPTION OF PROCEDURE AND FINDINGS: The patient is taken to the endoscopy room. MAC anesthesia introduced. After official time out and no disagreement with planned procedure, a bite block positioned. Video gastroscope easily passed through the esophagus through the pylorus to the third portion of the duodenum. Third and second portion of the duodenum were unremarkable. In the proximal duodenum and duodenal bulb there was superficial ulcer much smaller than previous exam but still not completely healed but much improved. Cold biopsies taken in the antrum to evaluate for Helicobacter pylori as he had some minimal to mild gastritis. On retroflex the gastroesophageal junction snug against the scope. No signs of any significant hiatal hernia. The scope is straightened. Gastroesophageal junction noted at about 39 cm. Z-line was unchanged from previous exam. No signs of any obvious masses or mucosal lesions on withdrawal of the scope. The patient tolerated the procedure well. There were no immediate complications. Findings discussed with the family out in the waiting area. It did not look like somehow he continued his proton pump inhibitor. I wrote for an addition of proton pump inhibitor b.i.d. for a week and then once daily for a while longer. I will see him back in the office next week. We will likely need to scope him again in two to three months for further evaluation.
== END 2021-05-01 15:30 | disposition home or self-care (01) ==
LOC: SDC 08:33
PROVIDERS: ATTEND Surgery
DX: Z09 Encounter for follow-up examination after completed treatment for conditions other than malignant neoplasm (principal); K26.9 Duodenal ulcer, unspecified as acute or chronic, without hemorrhage or perforation; Z87.11 Personal history of peptic ulcer disease; K29.70 Gastritis, unspecified, without bleeding; I10 Essential (primary) hypertension; Z79.899 Other long term (current) drug therapy
CPT/HCPCS: 36415; 80053; J2704; J3480

== ENCOUNTER 2022-03-19 09:11 | Day surgery (SDC) | payer MEDICARE ==
[2022-03-19] MEDS ORDERED: Lactated Ringers 1,000 ML IV ONE (09:33)
--- NOTE | 2022-03-19 09:40 | HP ---
DATE OF SURGERY: 03/19/2022 HISTORY OF PRESENT ILLNESS: The patient is a 66-year-old with history of some epigastric pain, history of prior peptic ulcer disease in need of follow up upper endoscopy for evaluation. He said he is still taking medicines. Given history of ulcers and epigastric pain, he is in need of follow up upper endoscopy. PAST MEDICAL HISTORY: Obstructive sleep apnea, hypertension, benign prostatic hypertrophy, chronic lung disease. PAST SURGICAL HISTORY: Right leg fracture in the past. Upper and lower back surgery in the past. MEDICATIONS: Amlodipine, buspirone, tramadol, atorvastatin, Clonidine, tamsulosin, citalopram, ezetimibe, ProAir inhaler, Breo Ellipta, CPAP, aspirin, vitamin D, vitamin B12, cranberry, bumetanide. ALLERGIES: CODEINE. POTASSIUM CHLORIDE. FAMILY HISTORY: Heart disease, diabetes. Negative for esophageal or colon cancer. SOCIAL HISTORY: One pack per day smoker, denies alcohol abuse. REVIEW OF SYSTEMS: Fourteen systems reviewed. No chest pain or palpitations. Other systems negative or noncontributory as above and per preadmission questionnaire. PHYSICAL EXAMINATION: GENERAL: No acute distress. HEENT: Sclerae nonicteric. NECK: No JVD. CHEST: Equal excursion, nonlabored breathing. CVS: Regular rate and rhythm. ABDOMEN: Soft, some tenderness epigastrium. No peritoneal signs. EXTREMITIES: No significant edema. NEURO: Alert, oriented, moving extremities symmetrically. PSYCH: Appropriate mood and affect. SKIN: Dry. IMPRESSION: Epigastric pain, history of peptic ulcer disease. I recommend follow up upper endoscopy to evaluate for recurrent ulcer disease, gastritis or other etiology. I feel he would benefit from EGD possible biopsy. General risk of bleeding or infection, risk of bowel injury or perforation possibly requiring open procedure, risk of missed or nondiagnosis or inability to diagnose the etiology of his symptoms. General risk of anesthesia or sedation, risk of aspiration but not limited to. He understands and agrees to the planned procedure, will proceed with outpatient EGD possible biopsy under MAC anesthesia as an outpatient.
[2022-03-19] MEDS ORDERED: Lactated Ringers 1,000 ML IV SCH (10:00)
[2022-03-19] MEDS ORDERED: DIPRIVAN 200 MG/20 ML IV ONE (11:37)
[2022-03-19 12:27] VITALS: BP 166/83; PULSE 58; O2SAT 95
--- NOTE | 2022-03-19 13:24 | OP ---
SURGERY DATE/TIME: 03/19/2022 1139 PREOPERATIVE DIAGNOSIS: History of peptic ulcer disease, history of epigastric pain, need for follow up upper endoscopy. POSTOPERATIVE DIAGNOSES: 1) Erosive gastritis. 2) No evidence of any current active ulcer. PROCEDURES: 1) EGD with cold biopsy of small bowel to evaluate for celiac sprue. 2) Cold biopsy of the antrum to evaluate for Helicobacter pylori. 3) Cold biopsy of distal esophagus to evaluate for normal variation of gastroesophageal junction versus very short segment of inflammation, path pending. SURGEON: Dr. Jhonatan Cabezas. ANESTHESIA: MAC. ESTIMATED BLOOD LOSS: Minimal. INDICATIONS: As noted above. Risks and benefits explained in detail and not limited to and consent obtained. DESCRIPTION OF PROCEDURE AND FINDINGS: The patient is taken to the endoscopy room. MAC anesthesia introduced. After official time out and no disagreement with planned procedure, a bite block positioned. Video gastroscope easily passed down the esophagus through the patent pylorus to the junction of the second and third portion of the duodenum. The third, second, first portion of duodenum no signs of any active ulcer. Given his epigastric pain, cold biopsy taken to evaluate for celiac disease or other etiology of his symptoms. The scope pulled back in the stomach. He did have some gastritis with one area of a little superficial erosion. There was no active ulcer. Cold biopsy taken to evaluate for Helicobacter pylori. Good hemostasis noted. On retroflex the gastroesophageal junction fairly snug against the scope. There were no signs of any large hiatal hernia. The scope straightened. Gastroesophageal junction 40 cm. Z-line was fairly crisp. Whether it was just at a slight angle there was a little bit of salmon pink mucosa whether this is a normal variation or actual early inflammation, cold biopsy taken distal esophagus near gastroesophageal junction. Good hemostasis noted. The remainder of the esophagus was grossly unremarkable. The patient tolerated the procedure well. Findings discussed with the family out in the waiting area.
== END 2022-03-19 12:36 | disposition home or self-care (01) ==
LOC: SDC 09:11
PROVIDERS: ATTEND Surgery
DX: K29.60 Other gastritis without bleeding (principal); Z87.11 Personal history of peptic ulcer disease; R10.13 Epigastric pain
CPT/HCPCS: J2704

== ENCOUNTER 2022-08-27 18:09 | Observation (INO) | payer MEDICARE ==
[2022-08-27] MEDS ORDERED: solu-MEDROL 125 MG, Sterile H2O 10 ml 2 ML IV ONE ×2 (19:33)
[2022-08-27] MEDS ORDERED: PROVENTIL 2.5 MG/3 ML NEB IH ONE ×2 (19:33→19:42)
--- NOTE | 2022-08-27 19:43 | ERPHSYRPT ---
- History of Present Illness Time Seen by Provider: 08/27/22 18:20 Source: patient Exam Limitations: no limitations Patient Subjective Stated Complaint: Pt states "I do not feel well. I am a little short of breath and I am cold. My belly hurts a little too." Triage Nursing Assessment: pt presented alert and oriented X 3, skin wpd. Pt able to speak in clear full setences pt unable to lay still. tp moving legs, moaning. Physician History: Patient is a 67-year-old male presents to emergency department for evaluation of shortness of breath and abdominal pain. Patient arrived via EMS. Patient has a history of COPD. Patient is a smoker for 52 years although patient states he recently quit. No associated chest pain. Patient also states he has been experiencing right lower quadrant pain. No trauma. No fever. Symptoms are mild to moderate in intensity. No specific worsening improving factors. Patient voices no other complaints or concerns at this time. Portions of this note were created with voice recognition technology. There may be grammatical, spelling, punctuation or sound alike errors Timing/Duration: today Severity: moderate Modifying Factors: Improves With: nothing Associated Symptoms: abdominal pain, shortness of breath, No fever, No weakness Allergies/Adverse Reactions: codeine Adverse Reaction (Severe, Verified 03/19/22 09:39) spouse and pt states "he gets nasty and mean" potassium chloride Adverse Reaction (Intermediate, Verified 03/19/22 09:39) Headache Severe headache with [employer] Riders,states not allergic .Spouse states "they just give it too fast and it blows his head off with pain " Home Medications: Amlodipine Besylate 10 mg PO DAILY 01/22/21 [History] Atorvastatin Calcium [Lipitor] 20 mg PO DAILY 01/22/21 [History] Bumetanide 0.5 mg PO DAILY 01/22/21 [History] Buspirone HCl 5 mg [Buspar 5 mg] 5 mg PO BID 01/22/21 [History] Citalopram Hydrobromide [Citalopram HBr] 40 mg PO DAILY 01/22/21 [History] Clonidine HCl 0.1 mg [Clonidine 0.1 mg Tablet] 0.1 mg PO DAILY 01/22/21 [History] Cranberry Fruit Extract/Vit C [Cvs Cranberry-Vitamin C Sfgl] 1 each PO DAILY 01/22/21 [History] Eplerenone 25 mg PO DAILY 01/22/21 [History] Ergocalciferol (Vitamin D2) [Vitamin D2] 50,000 unit PO Q7D 01/22/21 [History] Ezetimibe 10 mg [Zetia 10 MG] 10 mg PO DAILY 01/22/21 [History] Gabapentin 300 mg PO BID 01/22/21 [History] Hydroxyzine HCl 25 mg [Atarax 25 mg] 25 mg PO DAILY 01/22/21 [History] Mecobalamin [B12 Active] 500 mcg PO DAILY 01/22/21 [History] Metolazone 2.5 mg [Zaroxolyn 2.5 MG] 2.5 mg PO DAILY 01/22/21 [History] Tamsulosin HCl 0.4 mg [Flomax 0.4 MG] 0.4 mg PO DAILY 01/22/21 [History] Zolpidem Tartrate 10 mg [Ambien 10 MG] 10 mg PO DAILY 01/22/21 [History] Albuterol Sulfate [Proair Respiclick] 90 mcg IH UD 02/16/21 [History] Fluticasone/Vilanterol [Breo Ellipta 100-25 Mcg INH] 1 each IH UD 02/16/21 [History] Acetaminophen 325 mg [Tylenol 325 mg] 325 mg PO Q4HPRN PRN 04/24/21 [History] Albuterol 2.5 mg/0.5 ml [PROVENTIL Solution 2.5 MG/0.5 ML] 2.5 mg IH Q6HP RN PRN 04/24/21 [History] Potassium Chloride [K-Tab ER] 10 meq PO TID 03/06/22 [History] Famotidine [Pepcid] 20 mg PO BID 03/19/22 [History] Hx Tetanus, Diphtheria Vaccination/Date Given: Yes Hx Influenza Vaccination/Date Given: Yes Hx Pneumococcal Vaccination/Date Given: No Immunizations Up to Date: Yes Travel Risk - International Travel Have you traveled outside of the country in past 3 weeks: No - Coronavirus Screening Symptoms: Shortness of Breath Close contact with a COVID-19 positive Pt in past 14-21 Days: No - Vaccine Status Have you recieved a Covid-19 vaccination: Yes [employer]: [employer] - Vaccination Dates Date of 2cond Vaccination (if applicable): scheduled - Review of Systems Constitutional: No Symptoms, No Fever, No Chills Eyes: No Symptoms Ears, Nose, & Throat: No Symptoms Respiratory: No Symptoms, No Cough, No Dyspnea Cardiac: No Symptoms, No Chest Pain, No Edema, No Syncope Abdominal/Gastrointestinal: No Symptoms, No Abdominal Pain, No Nausea, No Vomiting, No Diarrhea Genitourinary Symptoms: No Symptoms, No Dysuria Musculoskeletal: No Symptoms, No Back Pain, No Neck Pain Skin: No Symptoms, No Rash Neurological: No Symptoms, No Dizziness, No Focal Weakness, No Sensory Changes Psychological: No Symptoms Endocrine: No Symptoms Hematologic/Lymphatic: No Symptoms Immunological/Allergic: No Symptoms All Other Systems: Reviewed and Negative - Past Medical History Pertinent Past Medical History: Yes Neurological History: No Pertinent History ENT History: No Pertinent History Cardiac History: Congenital Heart Disease, Hypertension, Myocardial Infarction ([place]) Respiratory History: COPD, Sleep Apnea Endocrine Medical History: No Pertinent History Musculoskeletal History: Arthritis GI Medical History: GERD, Hepatitis, Hernia, Other History: No Pertinent History Psycho-Social History: Anxiety, Depression Male Reproductive Disorders: No Pertinent History Other Medical History: Previous R LL fx, R forearm fx, states had Hep A. enteritis - Past Surgical History Past Surgical History: Yes Neuro Surgical History: No Pertinent History Cardiac: No Pertinent History Respiratory: No Pertinent History Gastrointestinal: Hernia Repair Genitourinary: No Pertinent History Musculoskeletal: Orthopedic Surgery Male Surgical History: No Pertinent History Other Surgical History: broken nose, EGD with Dx ulcer in February 2021. right arm fx --has plate,screws. right leg fx. left knee meniscus repair, right inguinal hernia repair, right knee meniscus repair, L4,L5 fusion. back surgery - Social History Smoking Status: Current every day smoker How long have you smoked: 50+ yrs Exposure to second hand smoke: Yes Drug Use: none Patient Lives Alone: Yes - Nursing Vital Signs Nursing Vital Signs: Initial Vital Signs Temperature 98.8 F 08/27/22 18:11 Pulse Rate 73 08/27/22 18:11 Respiratory Rate 22 08/27/22 18:11 Blood Pressure 119/62 08/27/22 18:11 O2 Sat by Pulse Oximetry 92 L 08/27/22 18:11 Pain Scale Pain Intensity 0 - Physical Exam General Appearance: no apparent distress, alert Eye Exam: PERRL/EOMI, eyes nml inspection Ears, Nose, Throat Exam: normal ENT inspection, TMs normal, pharynx normal, moist mucous membranes Neck Exam: normal inspection, non-tender, supple, full range of motion Respiratory Exam: airway intact, diminished breath sounds, wheezing, No respirat ory distress Cardiovascular Exam: regular rate/rhythm, normal heart sounds, normal peripheral pulses Gastrointestinal/Abdomen Exam: soft, normal bowel sounds, tenderness (Right lower quadrant abdominal tenderness.), No mass Back Exam: normal inspection, normal range of motion, No CVA tenderness, No vertebral tenderness Extremity Exam: normal inspection, normal range of motion, pelvis stable Neurologic Exam: alert, oriented x 3, cooperative, normal mood/affect, nml cerebellar function, nml station & gait, sensation nml, No motor deficits Skin Exam: normal color, warm, dry, No rash Lymphatic Exam: No adenopathy SpO2 Interpretation: normal SpO2: 90 O2 Delivery: Room Air - Course Nursing assessment & vital signs reviewed: Yes EKG Interpreted by Me: RATE (73), Sinus Rhythm, NORMAL AXIS, NORMAL INTERVALS - Radiology Exams Chest X-ray Interpretation: Interpreted by me (Hyperinflated lungs, lung granuloma, atelectasis/scarring. Borderline cardiomegaly. Osteopenia) - CT Exams Abdomen/Pelvis CT Interpretation: Tele-radiologist Report (New mild bibasilar airspace disease, small hiatal hernia, diverticulosis, atherosclerotic disease, by lateral fatty inguinal hernias, chronic bony findings old granulomatous disease) Ordered Tests: Active Orders 24 hr Category Date Time Status Maxillofacial Surgeon STAT Care 08/27/22 19:34 Active EKG-ER Only STAT Care 08/27/22 19:31 Active IV Insertion STAT Care 08/27/22 19:31 Active Pulse Oximetry (ED) STAT Care 08/27/22 19:33 Active ABDOMEN AND PELVIS W/0 CONTRAS [CT] Stat Exams 08/27/22 19:35 Taken CHEST 1 VIEW (PORTABLE) Stat Exams 08/27/22 19:32 Taken BLOOD CULTURE Stat Lab 08/27/22 19:50 Received BNP [NT PRO BNP] Stat Lab 08/27/22 Received CBC W DIFF Stat Lab 08/27/22 19:55 Completed CMP Stat Lab 08/27/22 19:55 Completed TROPONIN Q4H Lab 08/27/22 19:55 Completed TROPONIN Q4H Lab 08/27/22 23:45 Ordered TROPONIN Q4H Lab 08/28/22 03:45 Ordered UA W/RFX CULTURE Stat Lab 08/27/22 21:39 Results Respiratory Therapy Assessment DAILY RT 08/27/22 19:49 Active Medication Summary Generic Name Dose Route Start Last Admin Trade Name Joel PRN Reason Stop Dose Admin Sodium Chloride 1,000 mls @ 100 mls/hr 08/27/22 19:45 08/27/22 21:09 Sodium Chloride 0.9% 1000 Ml IV 09/26/22 19:44 Not Given .Q10H WALTER Magnesium Sulfate/Dextrose 100 mls @ 100 mls/hr 08/27/22 20:45 08/27/22 21:47 Magnesium 1 Gm / 100 Ml D5w IV 08/27/22 22:44 100 mls/hr Q1H WALTER Administration Ceftriaxone Sodium/Dextrose 2 g in 50 mls @ 100 mls/hr 08/27/22 22:00 Rocephin 2 Gm-D5w 50ml Bag IV 08/27/22 22:29 STAT STA Azithromycin 500 mg in 250 mls @ 250 mls/hr 08/27/22 22:00 Zithromax 500 Mg/ 250 Ml Nacl Premix IV 08/27/22 22:59 STAT STA Discontinued Medications Generic Name Dose Route Start Last Admin Trade Name Joel PRN Reason Stop Dose Admin Albuterol Sulfate 2.5 mg 08/27/22 19:33 08/27/22 19:43 Albuterol Sulfate 2.5 Mg/3 Ml Neb IH 08/27/22 19:34 2.5 mg STAT ONE Administration Albuterol Sulfate Confirm 08/27/22 19:42 Albuterol Sulfate 2.5 Mg/3 Ml Neb Administered 08/27/22 19:43 Dose 2.5 mg IH .STK-MED ONE Methylprednisolone Sodium 0 mg 08/27/22 19:33 08/27/22 19:52 Succinate 125 mg/ Sterile IV 08/27/22 19:34 125 mg Water 2 ml STAT ONE Administration Potassium Chloride 40 meq 08/27/22 20:32 08/27/22 21:06 Potassium Chloride Tab 10 Meq Tab PO 08/27/22 20:33 40 meq STAT ONE Administration Potassium Chloride Confirm 08/27/22 21:04 Potassium Chloride Tab 10 Meq Tab Administered 08/27/22 21:05 Dose 40 meq PO .STK-MED ONE Lab/Rad Data: Laboratory Result Diagrams 08/27/22 19:55 08/27/22 19:55 Laboratory Results 08/27/22 08/27/22 08/27/22 Range/Units 21:39 19:55 19:55 WBC (4.0-10.5) x10^3/uL RBC (4.1-5.6) x10^6/uL Hgb (12.5-18.0) g/dL Hct (42-50) % MCV (78-100) fL MCH (26-32) pg MCHC (32-36) g/dL RDW (11.5-14.0) % Plt Count (150-450) x10^3/uL MPV (7.5-11.0) fL Gran % (36.0-66.0) % Immature Gran % (Auto) (0.00-0.4) % Nucleat RBC Rel Count (0.00-0.1) % Eos # (Auto) (0-0.5) x10^3/uL Immature Gran # (Auto) (0.00-0.03) x10^3u/L Absolute Lymphs (auto) (1.0-4.6) x10^3/uL Absolute Monos (auto) (0.0-1.3) x10^3/uL Absolute Nucleated RBC (0.00-0.01) x10^3u/L Lymphocytes % (24.0-44.0) % Monocytes % (0.0-12.0) % Eosinophils % (0.00-5.0) % Basophils % (0.0-0.4) % Absolute Granulocytes (1.4-6.9) x10^3/uL Basophils # (0-0.4) x10^3/uL Sodium 128 L (137-145) mmol/L Potassium 2.9 L* (3.5-5.1) mmol/L Chloride 90 L (98-107) mmol/L Carbon Dioxide 31 H (22-30) mmol/L Anion Gap 10.4 (5-15) MEQ/L BUN 33 H (9-20) mg/dL Creatinine 1.82 H (0.66-1.25) mg/dL Estimated GFR 39.6 ML/MIN Glucose 112 H (74-106) mg/dL Calcium 8.2 L (8.4-10.2) mg/dL Total Bilirubin 1.00 (0.2-1.3) mg/dL AST 136 H (17-59) U/L ALT 65 H (0-50) U/L Alkaline Phosphatase 106 (38-126) U/L Troponin I 0.028 (0.000-0.034) ng/mL Serum Total Protein 6.9 (6.3-8.2) g/dL Albumin 3.4 L (3.5-5.0) g/dL Urinalys Dipstick Clnc MAIN LAB Urine Color YELLOW (YELLOW) Urine Appearance SLIGHTLY CLOUDY A (CLEAR) Urine pH 6.0 (5-6) Ur Specific Adrian 1.010 (1.005-1.025) POC Urine Protein Conf TRACE A (Negative) Urine Ketones NEGATIVE (NEGATIVE) Urine Nitrite POSITIVE A (NEGATIVE) Urine Bilirubin NEGATIVE (NEGATIVE) Urine Urobilinogen 0.2 (0-1) mg/dL Urine Leukocytes SMALL A (NEGATIVE) Urine WBC (Auto) Pending Urine RBC (Auto) Pending U Epithel Cells (Auto) Pending Urine Bacteria (Auto) Pending Urine RBC TRACE-LYSED A (0-5) Moses/ul Ur Culture Indicated? Pending Urine Glucose NEGATIVE (NEGATIVE) mg/dL Influenza Type A Ag (NEGATIVE) Influenza Type B Ag (NEGATIVE) RSV (PCR) (Negative) SARS-CoV-2 (PCR) (NEGATIVE) 08/27/22 08/27/22 Range/Units 19:55 19:25 WBC 12.9 H (4.0-10.5) x10^3/uL RBC 4.22 (4.1-5.6) x10^6/uL Hgb 12.2 L (12.5-18.0) g/dL Hct 35.4 L (42-50) % MCV 83.9 (78-100) fL MCH 28.9 (26-32) pg MCHC 34.5 (32-36) g/dL RDW 12.4 (11.5-14.0) % Plt Count 200 (150-450) x10^3/uL MPV 10.6 (7.5-11.0) fL Gran % 88.8 H (36.0-66.0) % Immature Gran % (Auto) 0.9 H (0.00-0.4) % Nucleat RBC Rel Count 0.0 (0.00-0.1) % Eos # (Auto) 0 (0-0.5) x10^3/uL Immature Gran # (Auto) 0.11 H (0.00-0.03) x10^3u/L Absolute Lymphs (auto) 0.65 L (1.0-4.6) x10^3/uL Absolute Monos (auto) 0.66 (0.0-1.3) x10^3/uL Absolute Nucleated RBC 0.00 (0.00-0.01) x10^3u/L Lymphocytes % 5.0 L (24.0-44.0) % Monocytes % 5.1 (0.0-12.0) % Eosinophils % 0.0 (0.00-5.0) % Basophils % 0.2 (0.0-0.4) % Absolute Granulocytes 11.44 H (1.4-6.9) x10^3/uL Basophils # 0.02 (0-0.4) x10^3/uL Sodium (137-145) mmol/L Potassium (3.5-5.1) mmol/L Chloride (98-107) mmol/L Carbon Dioxide (22-30) mmol/L Anion Gap (5-15) MEQ/L BUN (9-20) mg/dL Creatinine (0.66-1.25) mg/dL Estimated GFR ML/MIN Glucose (74-106) mg/dL Calcium (8.4-10.2) mg/dL Total Bilirubin (0.2-1.3) mg/dL AST (17-59) U/L ALT (0-50) U/L Alkaline Phosphatase (38-126) U/L Troponin I (0.000-0.034) ng/mL Serum Total Protein (6.3-8.2) g/dL Albumin (3.5-5.0) g/dL Urinalys Dipstick Clnc Urine Color (YELLOW) Urine Appearance (CLEAR) Urine pH (5-6) Ur Specific Adrian (1.005-1.025) POC Urine Protein Conf (Negative) Urine Ketones (NEGATIVE) Urine Nitrite (NEGATIVE) Urine Bilirubin (NEGATIVE) Urine Urobilinogen (0-1) mg/dL Urine Leukocytes (NEGATIVE) Urine WBC (Auto) Urine RBC (Auto) U Epithel Cells (Auto) Urine Bacteria (Auto) Urine RBC (0-5) Moses/ul Ur Culture Indicated? Urine Glucose (NEGATIVE) mg/dL Influenza Type A Ag NEGATIVE (NEGATIVE) Influenza Type B Ag NEGATIVE (NEGATIVE) RSV (PCR) NEGATIVE (Negative) SARS-CoV-2 (PCR) NEGATIVE (NEGATIVE) - Progress Progress: improved Progress Note: Case discussed with Dr. Felix excepts admission to observation. Plan of care discussed with patient but he agrees to admission [facility] for evaluation. Patient reassessed pain shortness of breath improved. Work-up reveals COPD. Portions of this note were created with voice recognition technology. There may be grammatical, spelling, punctuation or sound alike errors 08/27/22 22:[address] Buffy Will see patient in: hospital (observation) Counseled pt/family regarding: lab results, diagnosis, rad results - Departure Departure Disposition: Observation Clinical Impression: COPD with exacerbation, Hypoxia, Abdominal pain, Hypokalemia, New mild bibasilar airspace disease, Small hiatal hernia, Diverticulosis, Atherosclerotic disease, Bilateral fatty inguinal hernias Condition: Stable Critical Care Time: No
[2022-08-27 20:03] LABS: Absolute Neutrophil Ct (ANC) 11.44 x10^3/uL (1.4-6.9); Basophil (Absolute #) 0.02 x10^3/uL (0-0.4); Eosinophil (Absolute #) 0 x10^3/uL (0-0.5); Hematocrit 35.4 % (42-50); Hemoglobin 12.2 g/dL (12.5-18.0); Lymphocyte (Absolute #) 0.65 x10^3/uL (1.0-4.6); Mean Cell Volume 83.9 fL (78-100); Mean Corpuscular Hemoglobin 28.9 pg (26-32); Mean Corpuscular Hgb Concent. 34.5 g/dL (32-36); Mean Platelet Volume 10.6 fL (7.5-11.0); Monocyte (Absolute #) 0.66 x10^3/uL (0.0-1.3); Monocytes % 5.1 % (0.0-12.0); Neutrophil % 88.8 % (36.0-66.0); Platelet Count 200 x10^3/uL (150-450); Red Blood Count 4.22 x10^6/uL (4.1-5.6); Red Cell Distribution Width 12.4 % (11.5-14.0); White Blood Count 12.9 x10^3/uL (4.0-10.5)
[2022-08-27 20:19] LABS: ALBUMIN 3.4 g/dL (3.5-5.0); ANION GAP 10.4 MEQ/L (5-15); Calcium 8.2 mg/dL (8.4-10.2); Creatinine 1 1.82 mg/dL (0.66-1.25); EST GLOMERULAR FILTRATION RATE 39.6 ML/MIN; Total Protein 6.9 g/dL (6.3-8.2)
[2022-08-27 20:19] LABS: INFLUENZA A NEGATIVE (NEGATIVE); INFLUENZA B NEGATIVE (NEGATIVE); RESPIRATORY SYNCTIAL VIRUS NEGATIVE (Negative); SARS-CoV-2 Xpert Express NEGATIVE (NEGATIVE)
[2022-08-27 20:30] LABS: Potassium 2.9 mmol/L (3.5-5.1)
[2022-08-27] MEDS ORDERED: Klor Con PO ONE ×2 (20:32→21:04)
[2022-08-27] MEDS ORDERED: Sodium Chloride 0.9% 1000 ML 1,000 ML ONE (21:05)
[2022-08-27] MEDS: Sodium Chloride 0.9% 1000 ML 1,000 ML IV SCH (21:09)
[2022-08-27] MEDS: Magnesium 1 Gm / 100 Ml D5W*** 100 ML IV SCH ×2 (21:12→21:47)
[2022-08-27] MEDS ORDERED: Zithromax 500 MG/ 250 ML NaCl Premix 500 MG/250 ML IVPB IV STA (22:00)
[2022-08-27] MEDS ORDERED: ROCEPHIN 2 Gm-D5w 50ML BAG** 2 G/50 ML IVPB IV STA (22:00)
[2022-08-27 22:10] LABS: Appearance SLIGHTLY CLOUDY (CLEAR); Bilirubin NEGATIVE (NEGATIVE); Dipstick done @ ? MAIN LAB; Glucose NEGATIVE (NEGATIVE); Ketones NEGATIVE (NEGATIVE); Nitrite POSITIVE (NEGATIVE); Protein,Urine Dip TRACE (Negative); RBC TRACE-LYSED Ery/ul (0-5); Urobilinogen 0.2 mg/dL (0-1)
[2022-08-27 22:17] LABS: Bacteria RARE /HPF (NEGATIVE); Mucus SLIGHT /HPF (NEGATIVE); RBC 0-2 /HPF (0-2); WBC 51-100 /HPF (0-5)
[2022-08-27 22:18] LABS: Urine Cultured Indicated? YES
[2022-08-27] MEDS: PROVENTIL 2.5 MG/3 ML NEB IH SCH (23:04)
[2022-08-27] MEDS ORDERED: solu-MEDROL ONE (23:20)
[2022-08-27] MEDS ORDERED: Sterile H2O 10 ml IJ ONE (23:21)
[2022-08-27] MEDS: solu-MEDROL 60 MG, Sterile H2O 10 ml 2 ML IV SCH ×2 (23:40)
[2022-08-28] MEDS ORDERED: XYLOCAINE 1% HCL 20 ML MDV ONE (00:04)
[2022-08-28] MEDS: COREG 12.5 MG PO SCH ×3 (00:23→21:47)
[2022-08-28] MEDS: BUSPAR 5 MG PO SCH ×3 (00:23→21:46)
[2022-08-28] MEDS: NEURONTIN PO SCH ×3 (00:23→21:47)
[2022-08-28] MEDS: Klor Con PO SCH ×4 (00:23→21:47)
[2022-08-28] MEDS: MAG-OX 400 PO SCH ×4 (00:23→21:47)
[2022-08-28] MEDS: Ambien 10 MG PO SCH ×2 (00:23→21:47)
[2022-08-28] MEDS: CLONIDINE 0.1 MG TABLET PO SCH ×3 (00:23→21:48)
[2022-08-28] MEDS: Pepcid 20 MG PO SCH ×3 (00:23→21:47)
[2022-08-28] MEDS: ATARAX 25 MG PO SCH ×5 (00:23→21:46)
[2022-08-28] MEDS: POTASSIUM CHLORIDE 20 mEq IN WATER 100ML 20 MEQ/100 ML BAG IV SCH ×2 (01:23→03:29)
[2022-08-28] MEDS: PROVENTIL 2.5 MG/3 ML NEB IH SCH ×3 (03:10→11:00)
[2022-08-28] MEDS: Sodium Chloride 0.9% 1000 ML 1,000 ML IV SCH ×2 (03:33→20:00)
[2022-08-28 04:53] LABS: Hematocrit 35.8 % (42-50); Hemoglobin 12.5 g/dL (12.5-18.0); Mean Cell Volume 82.1 fL (78-100); Mean Corpuscular Hemoglobin 28.7 pg (26-32); Mean Corpuscular Hgb Concent. 34.9 g/dL (32-36); Platelet Count 227 x10^3/uL (150-450); Red Blood Count 4.36 x10^6/uL (4.1-5.6); Red Cell Distribution Width 12.7 % (11.5-14.0); White Blood Count 16.1 x10^3/uL (4.0-10.5)
[2022-08-28] MEDS ORDERED: Sterile H2O 10 ml IJ ONE (05:05)
[2022-08-28] MEDS ORDERED: solu-MEDROL ONE (05:05)
[2022-08-28] MEDS: solu-MEDROL 60 MG, Sterile H2O 10 ml 2 ML IV SCH ×6 (06:02→18:39)
[2022-08-28 07:34] LABS: ALBUMIN 3.4 g/dL (3.5-5.0); ANION GAP 12.8 MEQ/L (5-15); BILIRUBIN,TOTAL 0.5 mg/dL (0.2-1.3); Calcium 8.3 mg/dL (8.4-10.2); Creatinine 1 1.79 mg/dL (0.66-1.25); EST GLOMERULAR FILTRATION RATE 40.3 ML/MIN; Total Protein 6.6 g/dL (6.3-8.2)
[2022-08-28 07:41] LABS: Potassium 3.5 mmol/L (3.5-5.1)
[2022-08-28] MEDS: Advair Hfa 115/21 Common canister IH SCH ×2 (07:50→18:51)
[2022-08-28] MEDS: Flomax 0.4 MG PO SCH (08:14)
[2022-08-28] MEDS: ceLEXa 20 MG PO SCH (08:14)
[2022-08-28] MEDS: Zetia 10 MG PO SCH (08:15)
[2022-08-28] MEDS: Vitamin B-12 500 MCG PO SCH (08:15)
[2022-08-28] MEDS: ECOTRIN 81 MG PO SCH (08:15)
[2022-08-28] MEDS: BUMEX 1 MG PO SCH (08:15)
[2022-08-28] MEDS: ZOCOR 20MG PO SCH (08:15)
[2022-08-28] MEDS: NORVASC 5 MG PO SCH (08:15)
[2022-08-28] MEDS: Protonix 40MG Tablet PO SCH (08:15)
--- NOTE | 2022-08-28 08:37 | XRAY ---
Indication: Abdomen pain, nausea, vomiting, and constipation. Multiple contiguous axial images obtained through the abdomen and pelvis without contrast. Comparison: January 20, 2021 Lung bases demonstrates new mild bilateral lower lobe patchy airspace disease, right greater than left. Stable incidental calcified granulomas. Heart not enlarged. Stable small hiatal hernia. Noncontrasted stomach and bowel loops nonobstructed again with normal appendix. Again diffuse scattered colonic diverticulosis without diverticulitis. No free fluid/air. Both kidneys demonstrate stable nonspecific perinephric stranding. Stable tiny splenic calcified granulomas. Remaining liver, gallbladder, pancreas, spleen, adrenal glands, kidneys, ureters, and bladder are unremarkable for noncontrast exam. Again mild scattered aortoiliac calcifications without AAA. Osseous structures intact again with osteopenia, moderate sedative as multilevel lumbar degenerative spondylosis, and L2-S1 fusion with intact hardware. Stable small bilateral fatty inguinal hernias. Impression: 1. New bibasilar patchy airspace disease. 2. Again chronic findings including small hiatal hernia, colonic diverticulosis, arteriosclerotic disease, small bilateral fatty inguinal hernias, chronic bony findings, and old granulomatous disease.
--- NOTE | 2022-08-28 08:43 | XRAY ---
Indication: Short of breath. Abdomen pain. Comparison: May 28, 2017 Portable apical lordotic chest demonstrates new bibasilar hazy airspace disease without consolidation/large effusion. Remaining heart and upper lungs unremarkable again with incidental calcified granulomas. Bony thorax intact with osteopenia and partially visualized lumbar fusion hardware.
[2022-08-28] MEDS: Valium 5 MG PO SCH ×3 (09:35→21:47)
[2022-08-28] MEDS: Nicoderm CQ 21 MG TOP SCH (09:35)
[2022-08-28] MEDS: Potassium Chloride 40 MEQ/20 ML VIAL 40 MEQ, XYLOCAINE 1% HCL 20 ML MDV*** 2 ML in Sodi... IV SCH ×2 (09:37→13:52)
[2022-08-28] MEDS ORDERED: PHARMACY DOSING REQUEST MC ONE (09:42)
[2022-08-28] MEDS ORDERED: Zithromax 500 MG/ 250 ML NaCl Premix 500 MG/250 ML IVPB IV SCH ×2 (10:00→22:00)
[2022-08-28] MEDS ORDERED: NON-FORMULARY ITEM (Atorvastatin Calcium [Lipitor] 20 MG Tablet) PO SCH (10:00)
--- NOTE | 2022-08-28 11:02 | PCM.HP ---
History of Present Illness - Chief Complaint Chief Complaint: COPD EXACERBATION, HYPOKALEMIA, UTI History of Present Illness: is a 67 year old male.presents to emergency department for evaluation of shortness of breath and abdominal pain. Patient arrived via EMS. Patient has a history of COPD. Patient is a smoker for 52 years although patient states he recently quit. No associated chest pain. Patient also states he has been experiencing right lower quadrant pain. No trauma. No fever. Symptoms are mild to moderate in intensity. No specific worsening improving factors. Patient voices no other complaints or concerns at this time. - Review of Systems Constitutional: No Fever, No Chills Eyes: No Symptoms Ears, Nose, & Throat: No Symptoms Respiratory: Cough, Orthopnea, Short Of Breath, Wheezing Cardiac: No Chest Pain, No Edema, No Syncope Abdominal/Gastrointestinal: Abdominal Pain, No Nausea, No Vomiting, No Diarrhea Genitourinary Symptoms: No Dysuria Musculoskeletal: No Back Pain, No Neck Pain Skin: No Rash Neurological: No Dizziness, No Focal Weakness, No Sensory Changes Psychological: No Symptoms Endocrine: No Symptoms Hematologic/Lymphatic: No Symptoms Immunological/Allergic: No Symptoms Medications & Allergies Home Medications: Home Medication List Amlodipine Besylate 10 mg PO DAILY 01/22/21 [History Confirmed 08/27/22] Atorvastatin Calcium [Lipitor] 20 mg PO DAILY 01/22/21 [History Confirmed 08/27/22] Bumetanide 1 mg PO DAILY 01/22/21 [History Confirmed 08/27/22] Buspirone HCl 5 mg [Buspar 5 mg] 15 mg PO BID 01/22/21 [History Confirmed 08/27/22] Citalopram Hydrobromide [Citalopram HBr] 40 mg PO DAILY 01/22/21 [History Confirmed 08/27/22] Clonidine HCl 0.1 mg [Clonidine 0.1 mg Tablet] 0.1 mg PO BID 01/22/21 [History Confirmed 08/27/22] Cranberry Fruit Extract/Vit C [Cvs Cranberry-Vitamin C Sfgl] 1 each PO DAILY 01/22/21 [History Confirmed 08/27/22] Ergocalciferol (Vitamin D2) [Vitamin D2] 50,000 unit PO Q7D 01/22/21 [History Confirmed 08/28/22] Ezetimibe 10 mg [Zetia 10 MG] 10 mg PO DAILY 01/22/21 [History Confirmed ] Gabapentin 300 mg PO BID 01/22/21 [History Confirmed 08/27/22] Hydroxyzine HCl 25 mg [Atarax 25 mg] 25 mg PO QID 01/22/21 [History Confirmed 08/27/22] Metolazone 2.5 mg [Zaroxolyn 2.5 MG] 2.5 mg PO UD 01/22/21 [History Confirmed 08/27/22] Tamsulosin HCl 0.4 mg [Flomax 0.4 MG] 0.4 mg PO DAILY 01/22/21 [History Confirmed 08/27/22] Zolpidem Tartrate 10 mg [Ambien 10 MG] 10 mg PO HS 01/22/21 [History Confirmed 08/27/22] Albuterol Sulfate [Proair Respiclick] 2 puff IH Q6H 02/16/21 [History Confirmed 08/27/22] Fluticasone/Vilanterol [Breo Ellipta 100-25 Mcg INH] 1 puff IH DAILY 02/16/21 [History Confirmed 08/27/22] Potassium Chloride [K-Tab ER] 10 meq PO TID 03/06/22 [History Confirmed 08/27/22] Famotidine [Pepcid] 20 mg PO BID 03/19/22 [History Confirmed 08/27/22] Alendronate Sodium [Fosamax] 70 mg PO UD 08/27/22 [History Confirmed 08/28/22] Aspirin 81 gm Chew [Baby Aspirin 81 mg Chew] 81 mg PO DAILY 08/27/22 [History Confirmed 08/27/22] Carvedilol 12.5 mg [Coreg 12.5 mg] 12.5 mg PO BID 08/27/22 [History Confirmed 08/27/22] Cyanocobalamin (Vitamin B-12) [Vitamin B-12] 500 mcg PO DAILY 08/27/22 [History Confirmed 08/27/22] Magnesium Oxide [Magnesium] 400 mg PO TID 08/27/22 [History Confirmed 08/27/22] PANTOPRAZOLE 40 mg Tablet [Protonix 40MG Tablet] 40 mg PO DAILY 08/27/22 [History Confirmed 08/27/22] Allergies/Adverse Reactions: Allergies Allergy/AdvReac Type Severity Reaction Status Date / Time codeine AdvReac Severe Verified 08/27/22 23:22 potassium chloride AdvReac Intermediate Headache Verified 08/27/22 23:22 - Past Medical History Past Medical History: Yes Neurological History: No Pertinent History ENT History: No Pertinent History Cardiac History: Congenital Heart Disease, Hypertension Respiratory History: COPD, Sleep Apnea Endocrine Medical History: No Pertinent History Musculoskelatal History: Arthritis GI Medical History: GERD, Hepatitis, Hernia, Other History: No Pertinent History Pyscho-Social History: Anxiety, Depression Male Reproductive Disorders: No Pertinent History Comment: Previous R LL fx, R forearm fx, states had Hep A. enteritis - Past Surgical History Past Surgical History: Yes Neuro Surgical History: No Pertinent History Cardiac History: No Pertinent History Respiratory Surgery: No Pertinent History GI Surgical History: Hernia Repair Genitourinary Surgical Hx: No Pertinent History Musculskeletal Surgical Hx: Orthopedic Surgery Male Surgical History: No Pertinent History Other Surgical History: broken nose, EGD with Dx ulcer in February 2021. right arm fx --has plate,screws. right leg fx. left knee meniscus repair, right inguinal hernia repair, right knee meniscus repair, L4,L5 fusion. back surgery - Social History Smoking Status: Former smoker How long have you smoked: 50+ yrs Exposure to second hand smoke: Yes Alcohol: None Drug Use: marijuana - Physical Exam Vital Signs: Vital Signs - 24 hr Temp Pulse Resp BP BP Pulse Ox 08/28/22 08:08 64 18 93 L 08/28/22 08:00 22 08/28/22 07:05 97.5 F 60 18 118/56 90 L 08/28/22 04:00 97.1 F 65 18 132/74 94 L 08/28/22 03:10 63 20 91 L 08/27/22 23:04 67 22 91 L 08/27/22 22:44 98.0 F 60 24 133/57 93 L 08/27/22 22:21 90 L 08/27/22 21:11 62 18 118/63 94 L 08/27/22 19:43 68 12 92 L 08/27/22 19:33 88 L 08/27/22 19:09 70 14 151/103 90 L 08/27/22 18:11 98.8 F 73 22 119/62 90 L General Appearance: no apparent distress, alert Neurologic Exam: alert, oriented x 3, cooperative, normal mood/affect, nml cerebellar function, nml station & gait, sensation nml, No motor deficits Eye Exam: PERRL/EOMI, eyes nml inspection Ears, Nose, Throat Exam: normal ENT inspection, TMs normal, pharynx normal, moist mucous membranes Neck Exam: normal inspection, non-tender, supple, full range of motion Respiratory Exam: diminished breath sounds, crackles/rales, rhonchi, wheezing, No respiratory distress Cardiovascular Exam: regular rate/rhythm, normal heart sounds, normal peripheral pulses Gastrointestinal/Abdomen Exam: soft, normal bowel sounds, No tenderness, No mass Back Exam: normal inspection, normal range of motion, No CVA tenderness, No vertebral tenderness Extremity Exam: normal inspection, normal range of motion, pelvis stable Skin Exam: normal color, warm, dry, No rash Lymphatic Exam: No adenopathy Results - Labs Lab/Micro Results: Lab Results-Last 24 Hours 08/27/22 08/27/22 08/27/22 Range/Units 19:25 19:55 19:55 WBC 12.9 H (4.0-10.5) x10^3/uL RBC 4.22 (4.1-5.6) x10^6/uL Hgb 12.2 L (12.5-18.0) g/dL Hct 35.4 L (42-50) % MCV 83.9 (78-100) fL MCH 28.9 (26-32) pg MCHC 34.5 (32-36) g/dL RDW 12.4 (11.5-14.0) % Plt Count 200 (150-450) x10^3/uL MPV 10.6 (7.5-11.0) fL Gran % 88.8 H (36.0-66.0) % Immature Gran % (Auto) 0.9 H (0.00-0.4) % Nucleat RBC Rel Count 0.0 (0.00-0.1) % Eos # (Auto) 0 (0-0.5) x10^3/uL Immature Gran # (Auto) 0.11 H (0.00-0.03) x10^3u/L Absolute Lymphs (auto) 0.65 L (1.0-4.6) x10^3/uL Absolute Monos (auto) 0.66 (0.0-1.3) x10^3/uL Absolute Nucleated RBC 0.00 (0.00-0.01) x10^3u/L Lymphocytes % 5.0 L (24.0-44.0) % Monocytes % 5.1 (0.0-12.0) % Eosinophils % 0.0 (0.00-5.0) % Basophils % 0.2 (0.0-0.4) % Absolute Granulocytes 11.44 H (1.4-6.9) x10^3/uL Basophils # 0.02 (0-0.4) x10^3/uL Sodium 128 L (137-145) mmol/L Potassium 2.9 L* (3.5-5.1) mmol/L Chloride 90 L (98-107) mmol/L Carbon Dioxide 31 H (22-30) mmol/L Anion Gap 10.4 (5-15) MEQ/L BUN 33 H (9-20) mg/dL Creatinine 1.82 H (0.66-1.25) mg/dL Estimated GFR 39.6 ML/MIN Glucose 112 H (74-106) mg/dL Calcium 8.2 L (8.4-10.2) mg/dL Magnesium (1.6-2.3) mg/dL Total Bilirubin 1.00 (0.2-1.3) mg/dL AST 136 H (17-59) U/L ALT 65 H (0-50) U/L Alkaline Phosphatase 106 (38-126) U/L Troponin I (0.000-0.034) ng/mL NT-Pro-B Natriuret Pep (0-900) pg/mL Serum Total Protein 6.9 (6.3-8.2) g/dL Albumin 3.4 L (3.5-5.0) g/dL Urinalys Dipstick Clnc Urine Color (YELLOW) Urine Appearance (CLEAR) Urine pH (5-6) Ur Specific [place] (1.005-1.025) POC Urine Protein Conf (Negative) Urine Ketones (NEGATIVE) Urine Nitrite (NEGATIVE) Urine Bilirubin (NEGATIVE) Urine Urobilinogen (0-1) mg/dL Urine Leukocytes (NEGATIVE) Urine WBC (Auto) (0-5) /HPF Urine RBC (Auto) (0-2) /HPF U Epithel Cells (Auto) (FEW) /HPF Urine Bacteria (Auto) (NEGATIVE) /HPF Urine RBC (0-5) Moses/ul Urine Mucus (Auto) (NEGATIVE) /HPF Ur Culture Indicated? Urine Glucose (NEGATIVE) mg/dL Influenza Type A Ag NEGATIVE (NEGATIVE) Influenza Type B Ag NEGATIVE (NEGATIVE) RSV (PCR) NEGATIVE (Negative) SARS-CoV-2 (PCR) NEGATIVE (NEGATIVE) 08/27/22 08/27/22 08/27/22 Range/Units 19:55 21:39 23:55 WBC (4.0-10.5) x10^3/uL RBC (4.1-5.6) x10^6/uL Hgb (12.5-18.0) g/dL Hct (42-50) % MCV (78-100) fL MCH (26-32) pg MCHC (32-36) g/dL RDW (11.5-14.0) % Plt Count (150-450) x10^3/uL MPV (7.5-11.0) fL Gran % (36.0-66.0) % Immature Gran % (Auto) (0.00-0.4) % Nucleat RBC Rel Count (0.00-0.1) % Eos # (Auto) (0-0.5) x10^3/uL Immature Gran # (Auto) (0.00-0.03) x10^3u/L Absolute Lymphs (auto) (1.0-4.6) x10^3/uL Absolute Monos (auto) (0.0-1.3) x10^3/uL Absolute Nucleated RBC (0.00-0.01) x10^3u/L Lymphocytes % (24.0-44.0) % Monocytes % (0.0-12.0) % Eosinophils % (0.00-5.0) % Basophils % (0.0-0.4) % Absolute Granulocytes (1.4-6.9) x10^3/uL Basophils # (0-0.4) x10^3/uL Sodium (137-145) mmol/L Potassium (3.5-5.1) mmol/L Chloride (98-107) mmol/L Carbon Dioxide (22-30) mmol/L Anion Gap (5-15) MEQ/L BUN (9-20) mg/dL Creatinine (0.66-1.25) mg/dL Estimated GFR ML/MIN Glucose (74-106) mg/dL Calcium (8.4-10.2) mg/dL Magnesium (1.6-2.3) mg/dL Total Bilirubin (0.2-1.3) mg/dL AST (17-59) U/L ALT (0-50) U/L Alkaline Phosphatase (38-126) U/L Troponin I 0.028 0.028 (0.000-0.034) ng/mL NT-Pro-B Natriuret Pep (0-900) pg/mL Serum Total Protein (6.3-8.2) g/dL Albumin (3.5-5.0) g/dL Urinalys Dipstick Clnc MAIN LAB Urine Color YELLOW (YELLOW) Urine Appearance SLIGHTLY CLOUDY A (CLEAR) Urine pH 6.0 (5-6) Ur Specific [place] 1.010 (1.005-1.025) POC Urine Protein Conf TRACE A (Negative) Urine Ketones NEGATIVE (NEGATIVE) Urine Nitrite POSITIVE A (NEGATIVE) Urine Bilirubin NEGATIVE (NEGATIVE) Urine Urobilinogen 0.2 (0-1) mg/dL Urine Leukocytes SMALL A (NEGATIVE) Urine WBC (Auto) 51-100 A (0-5) /HPF Urine RBC (Auto) 0-2 (0-2) /HPF U Epithel Cells (Auto) NONE (FEW) /HPF Urine Bacteria (Auto) RARE (NEGATIVE) /HPF Urine RBC TRACE-LYSED A (0-5) Moses/ul Urine Mucus (Auto) SLIGHT A (NEGATIVE) /HPF Ur Culture Indicated? YES Urine Glucose NEGATIVE (NEGATIVE) mg/dL Influenza Type A Ag (NEGATIVE) Influenza Type B Ag (NEGATIVE) RSV (PCR) (Negative) SARS-CoV-2 (PCR) (NEGATIVE) 08/27/22 08/28/22 08/28/22 Range/Units Unknown 04:30 04:30 WBC 16.1 H (4.0-10.5) x10^3/uL RBC 4.36 (4.1-5.6) x10^6/uL Hgb 12.5 (12.5-18.0) g/dL Hct 35.8 L (42-50) % MCV 82.1 (78-100) fL MCH 28.7 (26-32) pg MCHC 34.9 (32-36) g/dL RDW 12.7 (11.5-14.0) % Plt Count 227 (150-450) x10^3/uL MPV 11.0 (7.5-11.0) fL Gran % (36.0-66.0) % Immature Gran % (Auto) (0.00-0.4) % Nucleat RBC Rel Count (0.00-0.1) % Eos # (Auto) (0-0.5) x10^3/uL Immature Gran # (Auto) (0.00-0.03) x10^3u/L Absolute Lymphs (auto) (1.0-4.6) x10^3/uL Absolute Monos (auto) (0.0-1.3) x10^3/uL Absolute Nucleated RBC (0.00-0.01) x10^3u/L Lymphocytes % (24.0-44.0) % Monocytes % (0.0-12.0) % Eosinophils % (0.00-5.0) % Basophils % (0.0-0.4) % Absolute Granulocytes (1.4-6.9) x10^3/uL Basophils # (0-0.4) x10^3/uL Sodium (137-145) mmol/L Potassium (3.5-5.1) mmol/L Chloride (98-107) mmol/L Carbon Dioxide (22-30) mmol/L Anion Gap (5-15) MEQ/L BUN (9-20) mg/dL Creatinine (0.66-1.25) mg/dL Estimated GFR ML/MIN Glucose (74-106) mg/dL Calcium (8.4-10.2) mg/dL Magnesium (1.6-2.3) mg/dL Total Bilirubin (0.2-1.3) mg/dL AST (17-59) U/L ALT (0-50) U/L Alkaline Phosphatase (38-126) U/L Troponin I 0.023 (0.000-0.034) ng/mL NT-Pro-B Natriuret Pep 3130 H (0-900) pg/mL Serum Total Protein (6.3-8.2) g/dL Albumin (3.5-5.0) g/dL Urinalys Dipstick Clnc Urine Color (YELLOW) Urine Appearance (CLEAR) Urine pH (5-6) Ur Specific [place] (1.005-1.025) POC Urine Protein Conf (Negative) Urine Ketones (NEGATIVE) Urine Nitrite (NEGATIVE) Urine Bilirubin (NEGATIVE) Urine Urobilinogen (0-1) mg/dL Urine Leukocytes (NEGATIVE) Urine WBC (Auto) (0-5) /HPF Urine RBC (Auto) (0-2) /HPF U Epithel Cells (Auto) (FEW) /HPF Urine Bacteria (Auto) (NEGATIVE) /HPF Urine RBC (0-5) Moses/ul Urine Mucus (Auto) (NEGATIVE) /HPF Ur Culture Indicated? Urine Glucose (NEGATIVE) mg/dL Influenza Type A Ag (NEGATIVE) Influenza Type B Ag (NEGATIVE) RSV (PCR) (Negative) SARS-CoV-2 (PCR) (NEGATIVE) 08/28/22 08/28/22 08/28/22 Range/Units 04:30 04:30 07:50 WBC (4.0-10.5) x10^3/uL RBC (4.1-5.6) x10^6/uL Hgb (12.5-18.0) g/dL Hct (42-50) % MCV (78-100) fL MCH (26-32) pg MCHC (32-36) g/dL RDW (11.5-14.0) % Plt Count (150-450) x10^3/uL MPV (7.5-11.0) fL Gran % (36.0-66.0) % Immature Gran % (Auto) (0.00-0.4) % Nucleat RBC Rel Count (0.00-0.1) % Eos # (Auto) (0-0.5) x10^3/uL Immature Gran # (Auto) (0.00-0.03) x10^3u/L Absolute Lymphs (auto) (1.0-4.6) x10^3/uL Absolute Monos (auto) (0.0-1.3) x10^3/uL Absolute Nucleated RBC (0.00-0.01) x10^3u/L Lymphocytes % (24.0-44.0) % Monocytes % (0.0-12.0) % Eosinophils % (0.00-5.0) % Basophils % (0.0-0.4) % Absolute Granulocytes (1.4-6.9) x10^3/uL Basophils # (0-0.4) x10^3/uL Sodium 132 L (137-145) mmol/L Potassium 3.5 D 2.9 L* (3.5-5.1) mmol/L Chloride 98 (98-107) mmol/L Carbon Dioxide 25 (22-30) mmol/L Anion Gap 12.8 (5-15) MEQ/L BUN 35 H (9-20) mg/dL Creatinine 1.79 H (0.66-1.25) mg/dL Estimated GFR 40.3 ML/MIN Glucose 141 H (74-106) mg/dL Calcium 8.3 L (8.4-10.2) mg/dL Magnesium 2.2 (1.6-2.3) mg/dL Total Bilirubin 0.50 (0.2-1.3) mg/dL AST 121 H (17-59) U/L ALT 61 H (0-50) U/L Alkaline Phosphatase 107 (38-126) U/L Troponin I (0.000-0.034) ng/mL NT-Pro-B Natriuret Pep (0-900) pg/mL Serum Total Protein 6.6 (6.3-8.2) g/dL Albumin 3.4 L (3.5-5.0) g/dL Urinalys Dipstick Clnc Urine Color (YELLOW) Urine Appearance (CLEAR) Urine pH (5-6) Ur Specific [place] (1.005-1.025) POC Urine Protein Conf (Negative) Urine Ketones (NEGATIVE) Urine Nitrite (NEGATIVE) Urine Bilirubin (NEGATIVE) Urine Urobilinogen (0-1) mg/dL Urine Leukocytes (NEGATIVE) Urine WBC (Auto) (0-5) /HPF Urine RBC (Auto) (0-2) /HPF U Epithel Cells (Auto) (FEW) /HPF Urine Bacteria (Auto) (NEGATIVE) /HPF Urine RBC (0-5) Moses/ul Urine Mucus (Auto) (NEGATIVE) /HPF Ur Culture Indicated? Urine Glucose (NEGATIVE) mg/dL Influenza Type A Ag (NEGATIVE) Influenza Type B Ag (NEGATIVE) RSV (PCR) (Negative) SARS-CoV-2 (PCR) (NEGATIVE) - Radiology Impressions Radiology Exams & Impressions: Radiology Procedures Category Date Time Status ABDOMEN AND PELVIS W/0 CONTRAS [CT] Stat Exams 08/27/22 19:35 Completed CHEST 1 VIEW (PORTABLE) Stat Exams 08/27/22 19:32 Completed - Other Procedures and Tests Respiratory Therapy 08/27/22 19:49 Respiratory Therapy Assessment DAILY 08/27/22 23:08 Oxygen NASAL CANNULA 2 lpm 08/27/22 23:24 BiPap/CPAP ROUTINE Assessment/Plan (1) COPD with exacerbation Current Visit: Yes Status: Acute Code(s): J44.1 - CHRONIC OBSTRUCTIVE PULMONARY DISEASE W (ACUTE) EXACERBATION (2) Abdominal pain Current Visit: Yes Status: Acute Code(s): R10.9 - UNSPECIFIED ABDOMINAL PAIN (3) Hypokalemia Current Visit: Yes Status: Acute Code(s): E87.6 - HYPOKALEMIA (4) Hypoxia Current Visit: Yes Status: Acute Code(s): R09.02 - HYPOXEMIA
[2022-08-28] MEDS ORDERED: PROVENTIL 2.5 MG/3 ML NEB IH PRN (11:10)
[2022-08-28] MEDS ORDERED: ROCEPHIN 1 Gm-D5w 50 ml Bag** 1 G/50 ML IVPB IV SCH (22:00)
[2022-08-28] MEDS: K-LYTE PO ONE (23:56)
[2022-08-29] MEDS: solu-MEDROL 60 MG, Sterile H2O 10 ml 2 ML IV SCH ×4 (00:07→06:36)
[2022-08-29] MEDS: Sodium Chloride 0.9% 1000 ML 1,000 ML IV SCH (02:55)
[2022-08-29] MEDS ORDERED: K-LYTE PO ONE (03:00)
[2022-08-29] MEDS: K-LYTE PO ONE ×2 (03:35→03:36)
[2022-08-29 04:59] LABS: Hematocrit 35.7 % (42-50); Hemoglobin 12.2 g/dL (12.5-18.0); Mean Cell Volume 84.4 fL (78-100); Mean Corpuscular Hemoglobin 28.8 pg (26-32); Mean Corpuscular Hgb Concent. 34.2 g/dL (32-36); Mean Platelet Volume 11.8 fL (7.5-11.0); Platelet Count 235 x10^3/uL (150-450); Red Blood Count 4.23 x10^6/uL (4.1-5.6); Red Cell Distribution Width 13.1 % (11.5-14.0)
[2022-08-29 05:36] LABS: ALBUMIN 3.3 g/dL (3.5-5.0); ANION GAP 11.7 MEQ/L (5-15); BILIRUBIN,TOTAL 0.8 mg/dL (0.2-1.3); Calcium 8.4 mg/dL (8.4-10.2); Creatinine 1 1.39 mg/dL (0.66-1.25); Potassium 3.4 mmol/L (3.5-5.1); Total Protein 6.6 g/dL (6.3-8.2)
[2022-08-29] MEDS: Advair Hfa 115/21 Common canister IH SCH (07:51)
[2022-08-29] MEDS ORDERED: Potassium Chloride 40 MEQ/20 ML VIAL 40 MEQ, XYLOCAINE 1% HCL 20 ML MDV*** 2 ML in Sodi... IV ONE (09:00)
[2022-08-29] MEDS: BUMEX 1 MG PO SCH (09:03)
[2022-08-29] MEDS: Nicoderm CQ 21 MG TOP SCH (09:03)
[2022-08-29] MEDS: Valium 5 MG PO SCH (09:03)
[2022-08-29] MEDS: NEURONTIN PO SCH (09:04)
[2022-08-29] MEDS: Vitamin B-12 500 MCG PO SCH (09:04)
[2022-08-29] MEDS: ZOCOR 20MG PO SCH (09:04)
[2022-08-29] MEDS: CLONIDINE 0.1 MG TABLET PO SCH (09:04)
[2022-08-29] MEDS: Zetia 10 MG PO SCH (09:04)
[2022-08-29] MEDS: COREG 12.5 MG PO SCH (09:05)
[2022-08-29] MEDS: MAG-OX 400 PO SCH (09:05)
[2022-08-29] MEDS: Pepcid 20 MG PO SCH (09:05)
[2022-08-29] MEDS: Protonix 40MG Tablet PO SCH (09:05)
[2022-08-29] MEDS: Flomax 0.4 MG PO SCH (09:05)
[2022-08-29] MEDS: BUSPAR 5 MG PO SCH (09:05)
[2022-08-29] MEDS: ceLEXa 20 MG PO SCH (09:05)
[2022-08-29] MEDS: NORVASC 5 MG PO SCH (09:06)
[2022-08-29] MEDS: ECOTRIN 81 MG PO SCH (09:06)
[2022-08-29] MEDS: Klor Con PO SCH (09:06)
[2022-08-29] MEDS: ATARAX 25 MG PO SCH ×2 (09:09→12:51)
[2022-08-29] MEDS ORDERED: Zaroxolyn 2.5 MG PO SCH (10:00)
[2022-08-29 12:23] VITALS: BP 103/61; PULSE 66; O2SAT 91
[2022-08-29] MEDS ORDERED: solu-MEDROL 60 MG, Sterile H2O 10 ml 2 ML IV SCH ×2 (18:00)
[2022-08-29] MEDS ORDERED: Zithromax 500 MG/ 250 ML NaCl Premix 500 MG/250 ML IVPB IV SCH (22:00)
--- NOTE | 2022-08-30 08:08 | PCM.DS ---
Discharge Summary Date of Admission: 08/27/22 21:58 Admitting Physician: JOY FROST Primary Care Provider: JOY FROST Allergies Allergies codeine Adverse Reaction (Severe, Verified 08/27/22 23:22) spouse and pt states "he gets nasty and mean" potassium chloride Adverse Reaction (Intermediate, Verified 08/27/22 23:22) Headache Severe headache with K Riders,states not allergic .Spouse states "they just give it too fast and it blows his head off with pain " Hospital Summary - Hospital Course Hospital Course: Chief Complaint Diagnosis COPD EXACERBATION, HYPOKALEMIA, UTI Allergies Allergy/AdvReac Type Severity Reaction Status Date / Time codeine AdvReac Severe Verified 08/27/22 23:22 potassium chloride AdvReac Intermediate Headache Verified 08/27/22 23:22 Vital Signs (Last 24 hours) Temp Pulse Resp BP Pulse Ox 08/29/22 12:00 97.7 F 66 18 103/61 91 L 08/29/22 09:21 92 L Home Medications Medication Instructions Recorded Confirmed Last Taken Type Alendronate Sodium [Fosamax] 70 mg PO UD 08/27/22 08/28/22 08/26/22 History Aspirin 81 gm Chew [Baby 81 mg PO DAILY 08/27/22 08/27/22 Unknown History Aspirin 81 mg Chew] Carvedilol 12.5 mg [Coreg 12.5 12.5 mg PO BID 08/27/22 08/27/22 Unknown History mg] Cyanocobalamin (Vitamin B-12) 500 mcg PO DAILY 08/27/22 08/27/22 Unknown History [Vitamin B-12] Magnesium Oxide [Magnesium] 400 mg PO TID 08/27/22 08/27/22 Unknown History PANTOPRAZOLE 40 mg Tablet 40 mg PO DAILY 08/27/22 08/27/22 Unknown History [Protonix 40MG Tablet] Cephalexin Mh 500 mg [Keflex 500 500 mg PO Q6H #28 cap 08/29/22 Unknown Rx mg] Methylprednisolone Packet 4 mg PO UD #1 packet 08/29/22 Unknown Rx [Medrol Dosepack] Current Medications Discontinued Medications Generic Name Dose Route Start Last Admin Trade Name Freq PRN Reason Stop Dose Admin Albuterol Sulfate 2.5 mg 08/27/22 19:33 08/27/22 19:43 Albuterol Sulfate 2.5 Mg/3 Ml Neb 08/27/22 19:34 2.5 mg STAT ONE Administration Albuterol Sulfate Confirm 08/27/22 19:42 Albuterol Sulfate 2.5 Mg/3 Ml Neb Administered 08/27/22 19:43 Dose 2.5 mg IH .STK-MED ONE Albuterol Sulfate 2.5 mg 08/27/22 23:00 08/28/22 11:00 Albuterol Sulfate 2.5 Mg/3 Ml Neb 09/26/22 22:59 2.5 mg Q4HRT WALTER Administration Albuterol Sulfate 2.5 mg 08/28/22 11:10 Albuterol Sulfate 2.5 Mg/3 Ml Neb 09/27/22 11:09 Q4H PRN PRN SHORTNESS OF BREATH/WHEEZING Alendronate Sodium 70 mg 09/09/22 06:00 Alendronate Sodium 70 Mg Tablet PO 10/09/22 05:59 Q14D WALTER Amlodipine Besylate 10 mg 08/28/22 10:00 08/29/22 09:06 Amlodipine Besylate 5 Mg Tablet PO 09/27/22 09:59 10 mg QAM WALTER Administration Aspirin 81 mg 08/28/22 10:00 08/29/22 09:06 Aspirin 81 Mg Tablet.Ec PO 09/27/22 09:59 81 mg DAILY WALTER Administration Bumetanide 1 mg 08/28/22 10:00 08/29/22 09:03 Bumetanide 1 Mg Tablet PO 09/27/22 09:59 1 mg DAILY WALTER Administration Buspirone HCl 15 mg 08/28/22 00:07 08/29/22 09:05 Buspirone Hcl 5 Mg Tablet PO 09/27/22 00:06 15 mg BID WALTER Administration Carvedilol 12.5 mg 08/28/22 00:08 08/29/22 09:05 Carvedilol 12.5 Mg Tablet PO 09/27/22 00:07 12.5 mg BID WALTER Administration Citalopram Hydrobromide 40 mg 08/28/22 10:00 08/29/22 09:05 Citalopram Hydrobromide 20 Mg Tablet PO 09/27/22 09:59 40 mg DAILY WALTER Administration Clonidine 0.1 mg 08/28/22 00:09 08/29/22 09:04 Clonidine Hcl 0.1 Mg Tablet PO 09/27/22 00:08 0.1 mg BID WALTER Administration Methylprednisolone Sodium 0 mg 08/27/22 19:33 08/27/22 19:52 Succinate 125 mg/ Sterile IV 08/27/22 19:34 125 mg Water 2 ml STAT ONE Administration Methylprednisolone Sodium 0 mg 08/28/22 00:00 08/29/22 06:36 Succinate 60 mg/ Sterile Water IV 09/27/22 00:00 60 mg 2 ml Q6HT WALTER Administration Methylprednisolone Sodium 0 mg 08/29/22 18:00 Succinate 60 mg/ Sterile Water IV 09/28/22 17:59 2 ml Q12H WALTER Cyanocobalamin 500 mcg 08/28/22 10:00 08/29/22 09:04 Cyanocobalamin 500 Mcg Tablet PO 09/27/22 09:59 500 mcg DAILY WALTER Administration Diazepam 10 mg 08/28/22 10:00 08/29/22 09:03 Diazepam 5 Mg Tablet PO 09/27/22 09:59 10 mg TID WALTER Administration Ezetimibe 10 mg 08/28/22 10:00 08/29/22 09:04 Ezetimibe 10 Mg Tab PO 09/27/22 09:59 10 mg DAILY WALTER Administration Ergocalciferol 50,000 unit 09/02/22 10:00 Ergocalciferol (Vitamin D2) 50,000 Unit Capsule PO 10/02/22 09:59 Q7D WALTER Famotidine 20 mg 08/28/22 00:09 08/29/22 09:05 Famotidine 20 Mg Tablet PO 09/27/22 00:08 20 mg BID WALTER Administration Gabapentin 300 mg 08/28/22 00:10 08/29/22 09:04 Gabapentin 300 Mg Capsule PO 09/27/22 00:09 300 mg BID WALTER Administration Hydroxyzine HCl 25 mg 08/28/22 00:10 08/29/22 12:51 Hydroxyzine Hcl 25 Mg Tablet PO 09/27/22 00:09 25 mg QID WALTER Administration Sodium Chloride 1,000 mls @ 100 mls/hr 08/27/22 19:45 08/29/22 02:55 Sodium Chloride 0.9% 1000 Ml IV 09/26/22 19:44 Not Given .Q10H WALTER Magnesium Sulfate/Dextrose 100 mls @ 100 mls/hr 08/27/22 20:45 08/27/22 21:47 Magnesium 1 Gm / 100 Ml D5w IV 08/27/22 22:44 100 mls/hr Q1H WALTER Administration Ceftriaxone Sodium/Dextrose 2 g in 50 mls @ 100 mls/hr 08/27/22 22:00 08/27/22 22:42 Rocephin 2 Gm-D5w 50ml Bag IV 08/27/22 22:29 100 mls/hr STAT STA Administration Azithromycin 500 mg in 250 mls @ 250 mls/hr 08/27/22 22:00 08/27/22 23:40 Zithromax 500 Mg/ 250 Ml Nacl Premix IV 08/27/22 22:59 250 mls/hr STAT STA Administration Ceftriaxone Sodium/Dextrose 1 g in 50 mls @ 100 mls/hr 08/28/22 22:00 21:46 Rocephin 1 Gm-D5w 50 Ml Bag IV 08/31/22 21:59 100 mls/hr Q24H22 WALTER Administration Azithromycin 500 mg in 250 mls @ 250 mls/hr 08/28/22 10:00 08/28/22 18:57 Zithromax 500 Mg/ 250 Ml Nacl Premix IV 09/27/22 09:59 Not Given Q24H10 WALTER Potassium Chloride 20 meq in 100 mls @ 50 mls/hr 08/28/22 00:15 08/28/22 03:29 Potassium Chloride 20 Meq In Water 100ml IV 08/28/22 04:14 50 mls/hr Q2H WALTER Administration Sodium Chloride Confirm 08/27/22 21:05 Sodium Chloride 0.9% 1000 Ml Administered 08/27/22 21:06 Dose 1,000 mls @ ud .ROUTE .STK-MED ONE Potassium Chloride 40 meq/ 272 mls @ 68 mls/hr 08/28/22 10:00 08/28/22 13:52 Lidocaine HCl 2 ml/ Sodium IV 08/28/22 17:59 68 mls/hr Chloride Q4H WALTER Administration Azithromycin 500 mg in 250 mls @ 250 mls/hr 08/28/22 22:00 08/28/22 22:48 Zithromax 500 Mg/ 250 Ml Nacl Premix IV 09/27/22 21:59 250 mls/hr Q24H10 WALTER Administration Azithromycin 500 mg in 250 mls @ 250 mls/hr 08/29/22 22:00 Zithromax 500 Mg/ 250 Ml Nacl Premix IV 09/28/22 21:59 Q24H22 WALTER Potassium Chloride 40 meq/ 272 mls @ 68 mls/hr 08/29/22 09:00 08/29/22 08:59 Lidocaine HCl 2 ml/ Sodium IV 08/29/22 12:59 68 mls/hr Chloride 1XONLY ONE Administration Lidocaine HCl Confirm 08/28/22 00:04 Lidocaine Hcl 1% 20 Ml Mdv 20 Ml Ml Administered 08/28/22 00:05 Dose 20 ml .ROUTE .STK-MED ONE Magnesium Oxide 400 mg 08/28/22 00:11 08/29/22 09:05 Magnesium Oxide 400 Mg Tablet PO 09/27/22 00:10 400 mg TID WALTER Administration Methylprednisolone Sodium Succinate Confirm 08/27/22 23:20 Methylprednis Sod Succ 125 Mg/2 Ml Vial Administered 08/27/22 23:21 Dose 125 mg .ROUTE .STK-MED ONE Methylprednisolone Sodium Succinate Confirm 08/28/22 05:05 Methylprednis Sod Succ 125 Mg/2 Ml Vial Administered 08/28/22 05:06 Dose 125 mg .ROUTE .STK-MED ONE Metolazone 2.5 mg 08/29/22 10:00 08/29/22 09:05 Metolazone 2.5 Mg Tablet PO 09/28/22 09:59 2.5 mg MOWEFR@1000 WALTER Administration Nicotine 21 mg 08/28/22 10:00 08/29/22 09:03 Nicotine 21 Mg/Patch Patch TOP 09/27/22 09:59 21 mg Q24H10 WALTER Administration Non-Formulary Medication 1 each 08/28/22 09:42 08/28/22 09:43 Pharmacy Dosing Request 08/28/22 09:43 1 each STAT ONE Administration Pantoprazole Sodium 40 mg 08/28/22 10:00 08/29/22 09:05 Protonix (Pantoprazole) 40 Mg Tablet PO 09/27/22 09:59 40 mg DAILY WALTER Administration Potassium Bicarbonate 25 meq 08/29/22 00:00 08/28/22 23:56 Potassium Bicarbonate 25 Meq Tab PO 08/29/22 00:01 25 meq ONCE ONE Administration Potassium Bicarbonate 25 meq 08/29/22 03:00 08/29/22 03:37 Potassium Bicarbonate 25 Meq Tab PO 08/29/22 03:01 25 meq STAT ONE Administration Potassium Chloride 40 meq 08/27/22 20:32 08/27/22 21:06 Potassium Chloride Tab 10 Meq Tab PO 08/27/22 20:33 40 meq STAT ONE Administration Potassium Chloride Confirm 08/27/22 21:04 Potassium Chloride Tab 10 Meq Tab Administered 08/27/22 21:05 Dose 40 meq PO .STK-MED ONE Potassium Chloride 10 meq 08/28/22 00:12 08/29/22 09:06 Potassium Chloride Tab 10 Meq Tab PO 09/27/22 00:11 10 meq TID WALTER Administration Fluticasone/Salmeterol 2 puff 08/28/22 07:00 08/29/22 07:51 Fluticasone/Salmeterol 115/21 - 120 Puff Common Canister IH 09/27/22 06:59 2 puff BIDRT WALTER Administration Simvastatin 20 mg 08/28/22 10:00 08/29/22 09:04 Simvastatin 20 Mg Tablet PO 09/27/22 09:59 20 mg DAILY WALTER Administration Sterile Water Confirm 08/27/22 23:21 Water For Injection,Sterile 10 Ml Vial Administered 08/27/22 23:22 Dose 10 ml IJ .STK-MED ONE Sterile Water Confirm 08/28/22 05:05 Water For Injection,Sterile 10 Ml Vial Administered 08/28/22 05:06 Dose 10 ml IJ .STK-MED ONE Tamsulosin HCl 0.4 mg 08/28/22 10:00 08/29/22 09:05 Tamsulosin Hcl 0.4 Mg Cap PO 09/27/22 09:59 0.4 mg DAILY WALTER Administration Zolpidem Tartrate 10 mg 08/28/22 00:13 08/28/22 21:47 Zolpidem Tartrate 10 Mg Tablet PO 09/27/22 00:12 10 mg HS WALTER Administration Intake & Output (Last 24 hours) 08/27/22 08/28/22 08/29/22 08/30/22 11:59 11:59 11:59 11:59 Intake Total 1540 2373 Output Total 570 Balance 1540 1803 Weight 88.3 kg Microbiology Results (Last 24 hours) 08/27/22 21:39 Clean Catch Midstream Urine Culture - Final Escherichia Coli 08/27/22 19:55 Blood Blood Culture Gram Stain - Pending 08/27/22 19:55 Blood Blood Culture - Preliminary NO GROWTH TO DATE Orders (Last 24 hours) Category Date Time Status Discharge Routine Discharge 08/29/22 12:17 Ordered Alendronate Sodium 70 mg [Fosamax 70 MG] Med 09/09/22 06:00 Discontinued 70 mg PO Q14D Azithromycin 500 mg/250 ml [Zithromax 500 MG/ 250 ML Med 08/29/22 22:00 Discontinued NaCl Premix] 500 mg in 250 ml IV Q24H22 Ergocalciferol (Vitamin D2) [Vitamin D2] Med 09/02/22 10:00 Discontinued 50,000 unit PO Q7D Methylprednis Sod Succ 125 mg* [solu-MEDROL] 60 mg Med 08/29/22 18:00 Discontinued Water For Injection,Sterile [Sterile H2O 10 ml] 2 ml IV Q12H Metolazone 2.5 mg [Zaroxolyn 2.5 MG] Med 08/29/22 10:00 Discontinued 2.5 mg PO MOWEFR@1000 Potassium Cl 40 Meq/20 ml Vial [Potassium Chloride 40 Med 08/29/22 09:00 Discontinued MEQ/20 ML VIAL] 40 meq Lidocaine HCl 1% 20 ml Mdv [Xylocaine 1% HCl 20 ml Mdv] 2 ml NaCl 0.9% 250 ml [Sodium Chloride 0.9% 250 ML] 250 ml IV 1XONLY Qualify for Home Oxygen TODAY RT 08/29/22 08:53 Completed Patient Care Notes (Last 24 hours) 08/29/22 13:12 Nursing Note by Denice Le MD states pt may DC home immediately after KCL infuses. No need to wait for lave. Reviewed all DC instructions with pt and spouse with understanding verbalized. DC home via wheelchair with pt . Initialized on 08/29/22 13:12 - END OF NOTE 08/29/22 11:27 Case Management Note by Em Hamilton S/W AND PATIENT- THEY BOTH DENY ANY NEW NEEDS AT TIME OF DC. THEY PLAN FOR PATIENT TO RETURN HOME TO HIS PLF. REPORTS PATIENT'S ANXIOUS BEHAVIOR IS NORMAL FOR HIM. PER RT PATIENT SATS GOOD ON ROOM AIR. Initialized on 08/29/22 11:27 - END OF NOTE - Vitals & Intake/Output Vital Signs: Vital Signs Temperature 97.7 F 08/29/22 12:00 Pulse Rate 66 08/29/22 12:00 Respiratory Rate 18 08/29/22 12:00 Blood Pressure 103/61 08/29/22 12:00 O2 Sat by Pulse Oximetry 91 L 08/29/22 12:00 Intake & Output: Intake & Output 08/27/22 08/28/22 08/29/22 08/30/22 11:59 11:59 11:59 11:59 Intake Total 1540 2373 Output Total 570 Balance 1540 1803 Weight 88.3 kg - Lab Result Diagrams: 08/29/22 04:53 08/29/22 04:53 Micro Results-Entire Visit: Microbiology 08/27/22 21:39 Urine Culture - Final Clean Catch Midstream Escherichia Coli 08/27/22 19:55 Blood Culture - Preliminary Blood NO GROWTH TO DATE - Procedures and Test Procedures and Tests throughout Hospitalization: Therapy Orders & Screens 08/27/22 19:49 Respiratory Therapy Assessment DAILY Comment: 08/27/22 23:08 Oxygen NASAL CANNULA 2 lpm Comment: Diagnosis: COPD EXACERBATION, HYPOKALEMIA, UTI RT Screen per Nursing Assess ONCE Comment: Protocol Order Physician Instructions: Greater than 3 points order RT Admission Screen Reason For Exam: Triggered on Admission Diagnosis: COPD EXACERBATION, HYPOKALEMIA, UTI Diagnosis: COPD EXACERBATION, HYPOKALEMIA, UTI Pneumonia: No Home O2: No Asthma: No CHF: No Home CPAP/BIPAP: Yes Home Nebs/MDI: Yes Total Points: 10 08/27/22 23:09 Respiratory MDI BID Comment: ADVAIR 115/21 2 PUFFS BID Diagnosis: COPD EXACERBATION, HYPOKALEMIA, UTI 08/27/22 23:24 BiPap/CPAP ROUTINE Comment: CPAP 16 PER PT'S HOME USE Diagnosis: COPD EXACERBATION, HYPOKALEMIA, UTI 08/29/22 08:53 Qualify for Home Oxygen TODAY Comment: Diagnosis: COPD EXACERBATION, HYPOKALEMIA, UTI Discharge Exam General Appearance: no apparent distress, alert Neurologic Exam: alert, oriented x 3, cooperative, normal mood/affect, nml cerebellar function, sensation nml, No motor deficits Eye Exam: PERRL, EOMI, eyes nml inspection Ears, Nose, Throat Exam: normal ENT inspection, pharynx normal, moist mucous membranes Neck Exam: normal inspection, non-tender, supple, full range of motion Respiratory Exam: normal breath sounds, lungs clear, No respiratory distress Cardiovascular Exam: regular rate/rhythm, normal heart sounds Gastrointestinal/Abdomen Exam: soft, No tenderness, No mass Male Genitalia Exam: deferred Rectal Exam: deferred Back Exam: normal inspection, normal range of motion, No CVA tenderness, No vertebral tenderness Extremity Exam: normal inspection, normal range of motion Skin Exam: normal color, warm, dry Final Diagnosis/Problem List - Final Discharge Diagnosis/Problem (1) COPD with exacerbation Status: Acute Code(s): J44.1 - CHRONIC OBSTRUCTIVE PULMONARY DISEASE W (ACUTE) EXACERBATION (2) Abdominal pain Status: Resolved Code(s): R10.9 - UNSPECIFIED ABDOMINAL PAIN (3) Hypokalemia Status: Resolved Code(s): E87.6 - HYPOKALEMIA (4) Hypoxia Status: Acute Code(s): R09.02 - HYPOXEMIA - Discharge Discharge Date: 08/29/22 Disposition: Home, Self-Care Condition: Stable Prescriptions: New Cephalexin Mh 500 mg [Keflex 500 mg] 500 mg PO Q6H #28 cap Methylprednisolone Packet [Medrol Dosepack] 4 mg PO UD #1 packet Continue Gabapentin 300 mg PO BID Buspirone HCl 5 mg [Buspar 5 mg] 15 mg PO BID Atorvastatin Calcium [Lipitor] 20 mg PO DAILY Metolazone 2.5 mg [Zaroxolyn 2.5 MG] 2.5 mg PO UD Hydroxyzine HCl 25 mg [Atarax 25 mg] 25 mg PO QID Citalopram Hydrobromide [Citalopram HBr] 40 mg PO DAILY Bumetanide 1 mg PO DAILY Zolpidem Tartrate 10 mg [Ambien 10 MG] 10 mg PO HS Ezetimibe 10 mg [Zetia 10 MG] 10 mg PO DAILY Clonidine HCl 0.1 mg [Clonidine 0.1 mg Tablet] 0.1 mg PO BID Tamsulosin HCl 0.4 mg [Flomax 0.4 MG] 0.4 mg PO DAILY Amlodipine Besylate 10 mg PO DAILY Ergocalciferol (Vitamin D2) [Vitamin D2] 50,000 unit PO Q7D Cranberry Fruit Extract/Vit C [Cvs Cranberry-Vitamin C Sfgl] 1 each PO DAILY Fluticasone/Vilanterol [Breo Ellipta 100-25 Mcg INH] 1 puff IH DAILY Albuterol Sulfate [Proair Respiclick] 2 puff IH Q6H Potassium Chloride [K-Tab ER] 10 meq PO TID Famotidine [Pepcid] 20 mg PO BID PANTOPRAZOLE 40 mg Tablet [Protonix 40MG Tablet] 40 mg PO DAILY Magnesium Oxide [Magnesium] 400 mg PO TID Cyanocobalamin (Vitamin B-12) [Vitamin B-12] 500 mcg PO DAILY Alendronate Sodium [Fosamax] 70 mg PO UD Carvedilol 12.5 mg [Coreg 12.5 mg] 12.5 mg PO BID Aspirin 81 gm Chew [Baby Aspirin 81 mg Chew] 81 mg PO DAILY Instructions: Chronic Obstructive Pulmonary Disease (COPD) (DC) Follow up with: JOY FROST MD [Primary Care Provider] - 09/11/22 2:45 pm
[2022-09-02] MEDS ORDERED: VITAMIN D2 PO SCH (10:00)
[2022-09-09] MEDS ORDERED: Fosamax 70 MG PO SCH (06:00)
== END 2022-08-29 13:10 | disposition home or self-care (01) ==
LOC: ED 18:09 → MED SURG 21:58
PROVIDERS: ADMIT General Practice; ATTEND General Practice
DX: J44.1 Chronic obstructive pulmonary disease with (acute) exacerbation (principal); R10.9 Unspecified abdominal pain; E87.6 Hypokalemia; R09.02 Hypoxemia; I10 Essential (primary) hypertension; N39.0 Urinary tract infection, site not specified; Z79.899 Other long term (current) drug therapy; Z20.828 Contact with and (suspected) exposure to other viral communicable diseases; Z72.0 Tobacco use
CPT/HCPCS: 0241U; 36000; 36415; 71045; 74176; 80053; 81015; 83735; 83880; 84132; 84484; 85025; 85027; 87040; 87086; 93005; 93041; 94640; 94660; 94760; 96365; 96374; 99285; 87077; 87186; 93268; J0456; J0696; J2930; J3475; J3480; J7609; A9270-GY; G0378

== ENCOUNTER 2024-04-13 08:15 | Day surgery (SDC) | payer MEDICARE ==
--- NOTE | 2024-04-13 08:16 | HP ---
HISTORY AND PHYSICAL HISTORY OF PRESENT ILLNESS: The patient needs followup screening colonoscopy. No bloody stools. No change in bowel movements. Some bloating, a little abdominal discomfort at times; it comes and goes but not there all the time. PAST MEDICAL HISTORY: Hypertension, COPD, reflux, sleep apnea, hyperlipidemia, anxiety, BPH, and history of depression. HOME MEDICATIONS: Clonidine, gabapentin, tamsulosin, Zoloft, vitamin D3, carvedilol, bumetanide, ezetimibe, magnesium, atorvastatin, amlodipine, famotidine, pantoprazole, ibuprofen, buspirone, Fosamax, Breo Ellipta, Naprosyn, ProAir RespiClick, vitamin B12, ergocalciferol, fluconazole, aspirin, potassium chloride. ALLERGIES: Codeine. PAST SURGICAL HISTORY: He has had endoscopy in the past, had knee scope, arm surgery, ankle surgery. SOCIAL HISTORY: One pack per day smoker. Denies alcohol abuse. FAMILY HISTORY: His father had colon cancer. Heart disease, diabetes, cancer. REVIEW OF SYSTEMS: Twelve systems reviewed. No chest pain or palpitation. Other systems negative or noncontributory as above and per preadmission questionnaire. PHYSICAL EXAMINATION: GENERAL: Height 5 feet 7 inches. BMI 29.76. No acute distress. HEENT: Sclerae nonicteric. NECK: No JVD. CHEST: Equal excursion, nonlabored breathing. CARDIOVASCULAR: Regular rate and rhythm. ABDOMEN: Soft. EXTREMITIES: No cyanosis or edema. NEUROLOGIC: Alert and oriented, moving all extremities symmetrically. SKIN: Dry.RECTAL: Deferred until the time of endoscopy exam. IMPRESSION: History of polyps, needs followup screening colonoscopy. This gentleman has increased bloating and also needs EGD to evaluate for gastritis, peptic ulcer disease, or celiac or other etiology. Risks explained in detail including but not limited to bleeding or infection, risk of bowel injury or perforation, risk of missed or nondiagnosis or incomplete exam possibly requiring barium enema or barium swallow or other studies or procedures, general risk of anesthesia, risk of sedation, risk of bowel prep but not limited to. Will proceed with EGD and colonoscopy as an outpatient. Otherwise, continue medications for BPH, hypertension, COPD, reflux, anxiety, depression, and hyperlipidemia.
[2024-04-13] MEDS: Lactated Ringers 1,000 ML IV SCH (08:34)
[2024-04-13 08:40] VITALS: RESP 16
[2024-04-13] MEDS ORDERED: DIPRIVAN 200 MG/20 ML IV ONE ×3 (11:07→11:36)
[2024-04-13 12:05] VITALS: TEMP 97.8
[2024-04-13 12:17] VITALS: BP 139/53; PULSE 56; O2SAT 94
--- NOTE | 2024-04-14 10:41 | OP ---
SURGERY DATE/TIME: 04/13/2024 [id number] - [id number] PREOPERATIVE DIAGNOSES: 1) History of polyps, need for followup screening colonoscopy. 2) History of some increased bloating, need for upper endoscopy to evaluate for gastritis or peptic ulcer disease or celiac or other etiology. POSTOPERATIVE DIAGNOSES: 1) Gastric erythema, possible early gastritis. 2) Small early rectal polyps x3. 3) Few diverticula. PROCEDURES: 1) Esophagogastroduodenoscopy with cold biopsy of small bowel. 2) Celiac and sprue cold biopsy of antrum to evaluate for H pylori. 3) Colonoscopy to cecum, hot biopsy polypectomy of rectal polyps x3. SURGEON: Rodney Cabezas MD ANESTHESIA: MAC. ESTIMATED BLOOD LOSS: Minimal. ASA class 3. WITHDRAWAL TIME: Approximately 10 minutes. Prep was fair. INDICATIONS: As above. Risks and benefits explained in detail, but not limited to. Consent obtained. DESCRIPTION OF PROCEDURE AND FINDINGS: Patient was taken to the endoscopy room. MAC anesthesia induced. After official time-out and no disagreement in planned procedure, bite block positioned. Videogastroscope easily passed down the esophagus through the patent pylorus, through the junction of the third and fourth portions of the duodenum. Withdrawal of the scope. No signs of any ulcers. Cold biopsies taken to evaluate for celiac disease in the small bowel. Scope pulled back into stomach and had some gastric erythema, but no signs of any ulcers or masses or polyps or other mucosal lesions. Cold biopsy was taken to evaluate for H pylori. Good hemostasis noted. On retroflex, the GE junction was fairly snug against the scope. There were no signs of any large hiatal hernia. Otherwise, the scope was pulled back. The GE junction was about 39 cm. Z-line was crisp. No signs of any Chavez's. No signs of any masses. The scope was withdrawn. Attention turned to colonoscopy. Digital rectal exam did not reveal any rectal masses. He had minimal internal hemorrhoids. Videocolonoscope inserted and passed up through the tortuous sigmoid, descending, transverse, ascending colon. With external pressure, the scope passed around to the cecum. Appendiceal orifice was not well visualized. Prep overall was fair but had liquidy, semi-solid stool. This was suction irrigated as clear as possible. The scope was slowly and carefully over the next 10 minutes. He did have diverticulosis in the left colon, small diverticula in the left colon, and scope was pulled back to the rectum where 3 small early polyps versus hyperplastic lesions were removed with hot biopsy polypectomy. Good hemostasis noted. No hemorrhoids. Scope was withdrawn. Findings discussed with family out in the waiting area.
== END 2024-04-13 12:22 | disposition home or self-care (01) ==
LOC: SDC 08:15
PROVIDERS: ATTEND Surgery
DX: Z12.11 Encounter for screening for malignant neoplasm of colon (principal); Z80.0 Family history of malignant neoplasm of digestive organs; Z09 Encounter for follow-up examination after completed treatment for conditions other than malignant neoplasm; Z86.010 Personal history of colon polyps; R14.0 Abdominal distension (gaseous); K29.70 Gastritis, unspecified, without bleeding; K62.1 Rectal polyp; K57.90 Diverticulosis of intestine, part unspecified, without perforation or abscess without bleeding; K64.8 Other hemorrhoids; K29.80 Duodenitis without bleeding
CPT/HCPCS: J2704

== ENCOUNTER 2024-06-24 12:09 | Emergency (ER) | payer MEDICARE ==
--- NOTE | 2024-06-24 12:12 | ERPHSYRPT ---
- History of Present Illness Time Seen by Provider: 06/24/24 12:11 Source: patient, family Exam Limitations: no limitations Physician History: This is a 69-year-old white male patient of Dr. Frost who arrives by private vehicle escorted by his who provided additional, independent history. The patient states that the pain started suddenly yesterday and felt like someone punched him in the back and he is still having significant pain. There is no acute traumatic injury. Patient has had 2 back surgeries in the past. Patient is not on any anticoagulation therapy. Patient has a history of hypertension, prostate issues, gastroesophageal reflux disease, COPD, hepatitis, sleep apnea, anxiety/depression and arthritis. Patient has not lost control of his urinary bladder or bowel function. He does not have numbness or tingling in his feet. Timing/Duration: today Method of Injury: other Quality: sharp (No injury), stabbing Severity of Pain-Max: moderate Severity of Pain-Current: moderate Modifying Factors: Improves With: movement Associated Symptoms: lower back pain, muscle spasms (Lumbar level), No urinary incontinence, No loss of bowel control, No constipation, No nausea, No vomiting, No numbness in legs/feet, No sensory/motor loss, No tingling in legs/feet Previous symptoms: no prior history, no recent treatment Allergies/Adverse Reactions: codeine Adverse Reaction (Severe, Verified 06/24/24 12:23) spouse and pt states "he gets nasty and mean" potassium chloride Adverse Reaction (Intermediate, Verified 06/24/24 12:23) Headache Severe headache with K Riders,states not allergic .Spouse states "they just give it too fast and it blows his head off with pain " Home Medications: Amlodipine Besylate 10 mg PO DAILY 01/22/21 [History] Atorvastatin Calcium [Lipitor] 20 mg PO DAILY 01/22/21 [History] Bumetanide 1 mg PO DAILY 01/22/21 [History] Buspirone HCl 5 mg [Buspar 5 mg] 15 mg PO BID 01/22/21 [History] Clonidine HCl 0.1 mg [Clonidine 0.1 mg Tablet] 0.1 mg PO BID 01/22/21 [History] Ergocalciferol (Vitamin D2) [Vitamin D2] 50,000 unit PO Q7D 01/22/21 [History] Ezetimibe 10 mg [Zetia 10 MG] 10 mg PO DAILY 01/22/21 [History] Gabapentin 300 mg PO BID 01/22/21 [History] Tamsulosin HCl 0.4 mg [Flomax 0.4 MG] 0.4 mg PO DAILY 01/22/21 [History] Albuterol Sulfate [Proair Respiclick] 2 puff IH Q6H 02/16/21 [History] Potassium Chloride [K-Tab ER] 10 meq PO TID 03/06/22 [History] Famotidine [Pepcid] 20 mg PO BID 03/19/22 [History] Alendronate Sodium [Fosamax] 70 mg PO UD 08/27/22 [History] Carvedilol 12.5 mg [Coreg 12.5 mg] 12.5 mg PO BID 08/27/22 [History] Cyanocobalamin (Vitamin B-12) [Vitamin B-12] 500 mcg PO DAILY 08/27/22 [History] Magnesium Oxide [Magnesium] 400 mg PO BID 08/27/22 [History] PANTOPRAZOLE 40 mg Tablet [Protonix 40MG Tablet] 40 mg PO DAILY 08/27/22 [History] Sertraline HCl 50 mg PO DAILY 04/10/24 [History] Fluticasone/Vilanterol [Breo Ellipta 100-25 Mcg Inhalr] 1 each IH DAILY 04/13/24 [History] Hx Tetanus, Diphtheria Vaccination/Date Given: Yes Hx Influenza Vaccination/Date Given: Yes Hx Pneumococcal Vaccination/Date Given: No Travel Risk - International Travel Have you traveled outside of the country in past 3 weeks: No - Emerging Infectious Disease Are you exhibiting symptoms associated with any current EIDs: No - Review of Systems Constitutional: No Symptoms Eyes: No Symptoms Ears, Nose, & Throat: No Symptoms Respiratory: No Symptoms Cardiac: No Symptoms Abdominal/Gastrointestinal: No Symptoms Genitourinary Symptoms: No Symptoms Musculoskeletal: Back Pain, No Fall, No Injury Skin: No Symptoms Neurological: No Symptoms Psychological: No Symptoms Endocrine: No Symptoms Hematologic/Lymphatic: No Symptoms Immunological/Allergic: No Symptoms All Other Systems: Reviewed and Negative - Past Medical History Pertinent Past Medical History: Yes Neurological History: No Pertinent History ENT History: No Pertinent History Cardiac History: Congenital Heart Disease, Hypertension Respiratory History: COPD, Sleep Apnea Endocrine Medical History: No Pertinent History Musculoskeletal History: Arthritis GI Medical History: GERD, Hepatitis, Hernia, Other History: No Pertinent History Psycho-Social History: Anxiety, Depression Male Reproductive Disorders: No Pertinent History Other Medical History: Previous R LL fx, R forearm fx, states had Hep A. enteritis - Past Surgical History Past Surgical History: Yes Neuro Surgical History: No Pertinent History Cardiac: No Pertinent History Respiratory: No Pertinent History Gastrointestinal: Hernia Repair Genitourinary: No Pertinent History Musculoskeletal: Orthopedic Surgery Male Surgical History: No Pertinent History Other Surgical History: broken nose, EGD with Dx ulcer in February 2021. right arm fx --has plate,screws. right leg fx. left knee meniscus repair, right inguinal hernia repair, right knee meniscus repair, L4,L5 fusion. back surgery - Social History Smoking Status: Current every day smoker How long have you smoked: 50+ yrs Exposure to second hand smoke: Yes Drug Use: none Patient Lives Alone: Yes - Nursing Vital Signs Nursing Vital Signs: Initial Vital Signs Temperature 98.2 F 06/24/24 12:15 Pulse Rate 55 L 06/24/24 12:15 Blood Pressure 147/62 06/24/24 12:15 O2 Sat by Pulse Oximetry 93 L 06/24/24 12:15 Pain Scale Pain Intensity [Posterior 10 Medial Back] Pain Intensity 6 - Physical Exam General Appearance: mild distress, alert, anxiety, thin Eye Exam: PERRL/EOMI, eyes nml inspection Ears, Nose, Throat Exam: normal ENT inspection, moist mucous membranes Neck Exam: normal inspection, non-tender, supple, full range of motion Respiratory Exam: normal breath sounds, lungs clear, No chest tenderness, No respiratory distress Cardiovascular Exam: regular rate/rhythm, normal heart sounds, normal peripheral pulses Gastrointestinal Exam: soft, normal bowel sounds, No tenderness Rectal Exam: not done Back Exam: normal inspection, decreased range of motion, muscle spasm (Lumbar level), other (No palpable vertebral tenderness in the thoracolumbar region), No CVA tenderness Extremity Exam: normal inspection, normal range of motion, pelvis stable Neurologic Exam: alert, oriented x 3, cooperative, work force advisor II-XII nml as tested, sensation nml Skin Exam: normal color, warm, dry Lymphatic Exam: No adenopathy SpO2 Interpretation: normal O2 Delivery: Room Air - Course Nursing assessment & vital signs reviewed: Yes Ordered Tests: Active Orders 24 hr Category Date Time Status IV Insertion STAT Care 06/24/24 12:25 Active ABDOMEN AND PELVIS W/0 CONTRAS [CT] Stat Exams 06/24/24 12:26 Completed CBC W DIFF Stat Lab 06/24/24 12:40 Completed CMP Stat Lab 06/24/24 12:40 Completed UA W/RFX UR CULTURE Stat Lab 06/24/24 14:20 Ordered Medication Summary Discontinued Medications Generic Name Dose Route Start Last Admin Trade Name Davidq PRN Reason Stop Dose Admin Hydromorphone HCl 0.5 mg 06/24/24 12:54 Hydromorphone 1 Mg/1ml Inj IV 06/24/24 12:55 STAT ONE Ketorolac Tromethamine 30 mg 06/24/24 12:54 06/24/24 12:59 Ketorolac Tromethamine 30 Mg/Ml Inj IV 06/24/24 12:55 30 mg STAT ONE Administration Ketorolac Tromethamine Confirm 06/24/24 12:58 Ketorolac Tromethamine 30 Mg/Ml Inj Administered 06/24/24 12:59 Dose 30 mg .ROUTE .STK-MED ONE Ondansetron HCl 4 mg 06/24/24 12:25 06/24/24 12:59 Ondansetron Hcl 4 Mg/2 Ml Vial IV 06/24/24 12:26 4 mg STAT ONE Administration Ondansetron HCl Confirm 06/24/24 12:58 Ondansetron Hcl 4 Mg/2 Ml Vial Administered 06/24/24 12:59 Dose 4 mg .ROUTE .STK-MED ONE Orphenadrine Citrate 60 mg 06/24/24 12:55 06/24/24 12:59 Orphenadrine Citrate 60 Mg/2 Ml Vial IV 06/24/24 12:56 60 mg STAT ONE Administration Orphenadrine Citrate Confirm 06/24/24 12:58 Orphenadrine Citrate 60 Mg/2 Ml Vial Administered 06/24/24 12:59 Dose 60 mg .ROUTE .STK-MED ONE Potassium Chloride 20 meq 06/24/24 14:37 Potassium Chloride Tab 10 Meq Tab PO 06/24/24 14:38 STAT ONE Lab/Rad Data: Laboratory Result Diagrams 06/24/24 12:40 06/24/24 12:40 Laboratory Results 06/24/24 06/24/24 Range/Units 12:40 12:40 WBC 9.1 H (4.23-9.07) x10^3/uL RBC 5.09 (4.63-6.08) x10^6/uL Hgb 14.4 (13.7-17.5) g/dL Hct 41.4 (40.1-51.0) % MCV 81.3 (79.0-92.2) fL MCH 28.3 (25.7-32.2) pg MCHC 34.8 (32.3-36.5) g/dL RDW 13.2 (11.6-14.4) % Plt Count 229 (163-337) x10^3/uL MPV 9.5 (9.4-12.4) fL Gran % 73.9 H (34.0-67.9) % Immature Gran % (Auto) 0.3 (0.001-0.429) % Nucleat RBC Rel Count 0.0 (0.00-0.2) % Eos # (Auto) 0.02 L (0.04-0.54) x10^3/uL Immature Gran # (Auto) 0.03 (0.001-0.031) x10^3u/L Absolute Lymphs (auto) 1.78 (1.32-3.57) x10^3/uL Absolute Monos (auto) 0.53 (0.30-0.82) x10^3/uL Absolute Nucleated RBC 0.00 (0.00-0.012) x10^3u/L Lymphocytes % 19.6 L (21.8-53.1) % Monocytes % 5.8 (5.3-12.2) % Eosinophils % 0.2 L (0.8-7.0) % Basophils % 0.2 (0.2-1.2) % Absolute Granulocytes 6.72 H (1.78-5.38) x10^3/uL Basophils # 0.02 (0.01-0.08) x10^3/uL Sodium 139 (135-145) mmol/L Potassium 3.1 L (3.5-5.1) mmol/L Chloride 99 (98-107) mmol/L Carbon Dioxide 32 H (22-30) mmol/L Anion Gap 10.4 (5-15) MEQ/L BUN 18 (9-20) mg/dL Creatinine 1.66 H (0.66-1.25) mg/dL Estimated GFR 44.1 ML/MIN Glucose 143 H (74-106) mg/dL Calcium 9.5 (8.4-10.2) mg/dL Total Bilirubin 0.40 (0.2-1.3) mg/dL AST 26 (17-59) U/L ALT 21 (0-50) U/L Alkaline Phosphatase 75 (38-126) U/L Serum Total Protein 7.8 (6.3-8.2) g/dL Albumin 4.2 (3.5-5.0) g/dL - Progress Progress: improved, pain not gone completely, re-examined Progress Note: 06/24/24 13:08 My medical decision making and the assignment of moderate complexity is based on review of the patient's past medical history, review the patient's medication list, review the patient drug allergy list, history present illness and physical findings on examination. The workup in this patient includes placement of intravenous line, infusion of Toradol intravenously, infusion of Zofran i ntravenously, infusion of Dilaudid intravenously and infusion of orphenadrine intravenously. We also ordered a CBC, CMP, urinalysis and ordered a CT scan of the abdomen pelvis without contrast to evaluate the aorta, lumbar spine and look for nephrolithiasis/ureterolithiasis. Differential diagnosis includes but is not limited to ureterolithiasis, urinary tract infection, lumbar spine abnormality, abdominal aortic abnormality 06/24/24 14:38 I interpreted the patient's laboratory data results. Patient has mild hypokalemia with a potassium level 3.1. No other acute, emergent medical issues. CT scan of the abdomen pelvis without contrast was interpreted by the radiologist and I reviewed the impression. The impression states mild fecal stasis without obstruction. Bilateral fatty inguinal hernias present. Chronic bony findings including L2-S1 fusion surgery. No abdominal aortic aneurysm. 06/24/24 14:39 Patient states his low back pain has improved with treatment Counseled pt/family regarding: lab results, diagnosis, need for follow-up, rad results Medical Desision Making - Independent Historian Additional History obtained from: Spouse - Diagnostic Testing Diagnostic test were ordered, analyzed, and reviewed by me: Yes Radiological Interpretation: Reviewed by me, Teleradiologist Report - Risk of complications The pt has a mod risk of morbidity or mortality based on: Need for prescription drug management - Departure Departure Disposition: Home Clinical Impression: Low back pain, Acute exacerbation of chronic low back pain Condition: Stable Critical Care Time: No Referrals: JOY FROST MD [Primary Care Provider] - Follow up/PCP as directed Additional Instructions: Take your medication as prescribed. Call your primary care provider today, 06/24/2024, to make arrangements for follow-up appointment to be seen in the next 3 to 5 days. Prescriptions: Oxycodone HCl/Acetaminophen [Percocet 5-325 mg Tablet] 1 each PO Q8H PRN PRN #6 tablet MDD 3 PRN Reason: Moderate To Severe Pain Prednisone 10 mg [Deltasone 10 mg] 10 mg PO TID #12 tablet
[2024-06-24 12:23] VITALS: TEMP 98.2
[2024-06-24 12:45] LABS: Absolute Neutrophil Ct (ANC) 6.72 x10^3/uL (1.78-5.38); BASOPHIL % 0.2 % (0.2-1.2); Basophil (Absolute #) 0.02 x10^3/uL (0.01-0.08); Eosinophil % 0.2 % (0.8-7.0); Eosinophil (Absolute #) 0.02 x10^3/uL (0.04-0.54); Hematocrit 41.4 % (40.1-51.0); Hemoglobin 14.4 g/dL (13.7-17.5); IMMATURE GRAN # 0.03 x10^3u/L (0.001-0.031); IMMATURE GRAN % 0.3 % (0.001-0.429); Lymphocyte (Absolute #) 1.78 x10^3/uL (1.32-3.57); Lymphocytes % 19.6 % (21.8-53.1); Mean Cell Volume 81.3 fL (79.0-92.2); Mean Corpuscular Hemoglobin 28.3 pg (25.7-32.2); Mean Corpuscular Hgb Concent. 34.8 g/dL (32.3-36.5); Mean Platelet Volume 9.5 fL (9.4-12.4); Monocyte (Absolute #) 0.53 x10^3/uL (0.30-0.82); Monocytes % 5.8 % (5.3-12.2); Neutrophil % 73.9 % (34.0-67.9); Platelet Count 229 x10^3/uL (163-337); Red Blood Count 5.09 x10^6/uL (4.63-6.08); Red Cell Distribution Width 13.2 % (11.6-14.4); White Blood Count 9.1 x10^3/uL (4.23-9.07)
[2024-06-24] MEDS ORDERED: Hydromorphone 1 mg/ml Injection IV ONE (12:54)
[2024-06-24] MEDS ORDERED: Norflex 60 MG/2 ML ONE (12:58)
[2024-06-24] MEDS ORDERED: Zofran 4 MG/2 ML VIAL ONE (12:58)
[2024-06-24] MEDS ORDERED: TORAdol 30 mg Injection ONE (12:58)
[2024-06-24 12:59] LABS: ALBUMIN 4.2 g/dL (3.5-5.0); ANION GAP 10.4 MEQ/L (5-15); BILIRUBIN,TOTAL 0.4 mg/dL (0.2-1.3); Calcium 9.5 mg/dL (8.4-10.2); Creatinine 1 1.66 mg/dL (0.66-1.25); EST GLOMERULAR FILTRATION RATE 44.1 ML/MIN; Potassium 3.1 mmol/L (3.5-5.1); Total Protein 7.8 g/dL (6.3-8.2)
[2024-06-24] MEDS: Zofran 4 MG/2 ML VIAL IV ONE (12:59)
[2024-06-24] MEDS: Norflex 60 MG/2 ML IV ONE (12:59)
[2024-06-24] MEDS: TORAdol 30 mg Injection IV ONE (12:59)
--- NOTE | 2024-06-24 13:54 | XRAY ---
Indication: Back pain. Multiple contiguous axial images obtained through abdomen and pelvis without contrast. Comparison: April 09, 2023 Lung bases again demonstrates pulmonary emphysema and a few tiny bilateral calcified granulomas. Stable chronic right hemidiaphragm elevation with adjacent atelectasis. No infiltrate or effusion. Heart not enlarged again with small right infrahilar calcified nodes. Stable small hiatal hernia. Noncontrasted stomach and bowel loops appear nonobstructed with normal appendix. Again mild diffuse scattered colonic fecal debris, increased in sigmoid. Stable small left renal cyst and tiny splenic calcified granulomas. No free fluid/air. Remaining liver, gallbladder, pancreas, spleen, adrenal glands, kidneys, ureters, and bladder are unremarkable for noncontrast exam. There remains mild scattered aortoiliac calcifications including right renal arteries. No AAA. Osseous structures intact again with osteopenia, mild/moderate multilevel lumbar degenerative spondylosis and L2-S1 fusion with intact hardware. Again incidental small bilateral fatty inguinal hernias. Impression: 1. Worsening mild diffuse fecal stasis without obstruction. 2. Again chronic findings including right hemidiaphragm elevation, hiatal hernia, bilateral fatty inguinal hernias, left renal cyst, arteriosclerotic disease, chronic bony findings including L2-S1 fusion surgery, and old granulomatous disease. 3. Remaining CT abdomen/pelvis without contrast exam continues to be negative.
[2024-06-24 14:22] VITALS: PULSE 59
[2024-06-24 14:58] LABS: Appearance Clear (Clear); Bacteria Many /HPF (None Seen); Bilirubin Negative (Negative); Blood Negative (Negative); Epithelial Cells None Seen /HPF (None Seen); Glucose, Urine Negative (Negative); Hyaline Casts NONE SEEN /LPF (0-2); Ketones Negative (Negative); Leukocyte Esterase Trace (Negative); Nitrite Positive (Negative); Ph 6.5 (4.6-8.0); Protein,Urine Dip Negative (Negative); RBC 0-2 /HPF (0-5); Urobilinogen 0.2 mg/dL (0.2)
[2024-06-24 14:59] LABS: ADD URINE CULTURE? YES (NO)
[2024-06-24] MEDS ORDERED: Klor Con ONE (15:04)
[2024-06-24] MEDS: Klor Con PO ONE (15:05)
[2024-06-24 15:08] VITALS: BP 151/72; O2SAT 95
== END 2024-06-24 15:11 | disposition home or self-care (01) ==
LOC: ED 12:09
DX: G89.29 Other chronic pain (principal); M54.50 Low back pain, unspecified; I10 Essential (primary) hypertension; Z79.891 Long term (current) use of opiate analgesic; Z79.52 Long term (current) use of systemic steroids; Z79.899 Other long term (current) drug therapy; Z72.0 Tobacco use
CPT/HCPCS: 36000; 36415; 74176; 80053; 81001; 85025; 87077; 87086; 87186; 96374; 96375; 99284; J1885; J2360; J2405; A9270-GY